=== PATIENT | female | born 1990 | race Caucasian/White ===

== ENCOUNTER 2023-03-25 23:35 | Emergency (ER) | payer OTHER, SELFPAY ==
[2023-03-25 23:48] VITALS: BP 134/84; PULSE 101; RESP 20; TEMP 37.2; O2SAT 97; BMI 23.7
[2023-03-25 23:49] VITALS: BP 134/84
[2023-03-25 23:56] VITALS: PULSE 90; RESP 17
[2023-03-26] VITALS (55 sets, daily range): BP systolic 114–138; BP diastolic 77–90; PULSE 70–96; RESP 10–36; O2SAT 97–99
--- NOTE | 2023-03-26 00:05 | ED_ITS ---
HPI - Chest Pain General Chief Complaint: Chest Pain Stated Complaint: CHEST PAIN Time Seen by Provider: 03/25/23 23:59 Source: patient Mode of arrival: walk-in Limitations: no limitations History of Present Illness HPI narrative: chest pain mostly constant for one week but varies in intensity. sometimes associated with dyspnea. Describes how she can just bend over and feel a little short of breath. Also mild nausea that comes and goes and diarrhea. none now. Had body aches last week at the same time she was experiencing chest pain. Tested for COVID19 x2 and was negative. body aches have resolved but chest d iscomfort continues . Related Data Home Medications Medication Instructions Recorded Confirmed fluocinonide 0.05 % topical cream 1 applic topical PRN itching 03/26/23 fremanezumab-vfrm 225 mg/1.5 mL mg subcut 03/26/23 subcutaneous auto-injector (Ajovy) naproxen 500 mg tablet 500 mg PO PRN pain 03/26/23 norethindrone 1 mg-ethinyl 1 tab PO DAILY 03/26/23 03/26/23 estradiol 35 mcg tablet (Nortrel) omeprazole 20 mg capsule,delayed 40 mg PO BID 03/26/23 03/26/23 release prednisolone acetate 1 % eye 1 drp ophthalmic (eye) Q12H 03/26/23 03/26/23 drops,suspension Allergies Allergy/AdvReac Type Severity Reaction Status Date / Time No Known Drug Allergies Allergy Verified 03/25/23 23:53 Review of Systems ROS Status of ROS 10 or more systems reviewed and unremarkable except as noted in history and below [facility] Medical History (Updated 03/26/23 @ 05:21 by Yves Chase MD) Surgical History (Updated 03/26/23 @ 03:52 by Rosalba Mena) Exam Constitutional Vital Signs, click to edit/add: Last Vital Signs Temp 99 F 03/25/23 23:48 Pulse 86 03/26/23 08:44 Resp 22 03/26/23 08:44 BP 119/78 03/26/23 08:30 Pulse Ox 97 03/26/23 07:00 O2 Del Method Room Air 03/25/23 23:48 Common normals: no apparent distress, average body habitus, oriented x3, no limitations and healthy appearing Eye Common normals: PERRL, EOMs intact bilaterally, conjunctivae normal and no scleral icterus Respiratory Common normals: normal respiratory effort, no retractions and no use of accessory muscles Cardio Common normals: regular rate, regular rhythm, S1 normal heart sound and S2 normal heart sound GI Common normals: Normal to inspection, nondistended, normoactive bowel sounds present, soft to palpation and non-tender Inspection: normal to inspection Extremity Common normals: normal to inspection and full ROM Neuro Common normals: oriented x3, CN's II-XII intact bilaterally, moves all extremities, no focal motor deficits and no sensory deficits noted Psych Appearance: grossly normal Course Vital Signs Vital signs: Vital Signs Temperature 99 F 03/25/23 23:48 Pulse Rate 101 H 03/25/23 23:48 Respiratory Rate 20 03/25/23 23:48 Blood Pressure 134/84 03/25/23 23:48 Pulse Oximetry 97 03/25/23 23:48 Oxygen Delivery Method Room Air 03/25/23 23:48 Temperature 99 F 03/25/23 23:48 Pulse Rate 86 03/26/23 08:44 Respiratory Rate 22 03/26/23 08:44 Blood Pressure 119/78 03/26/23 08:30 Pulse Oximetry 97 03/26/23 07:00 Oxygen Delivery Method Room Air 03/25/23 23:48 MDM - Chest Pain MDM Narrative Medical decision making narrative: otherwise healthy female presents complaining of exertional chest pain and associated dyspnea and nausea on and off for the past week. Workup demonstrated elevated d-dimer. CTA chest neg for PE. Troponin elevated and repeat Troponin doubled. Patient advised of the need for transfer to be evaluated by Cardiology. heparin ordered. Case discussed with Hospitalist and patient accepted for transfer Lab Data Labs: Lab Results 03/26/23 03/26/23 03/26/23 Range/Units 00:00 02:50 06:11 WBC 5.9 (4.0-11.0) 10^3/uL RBC 4.66 (4.20-5.40) 10^6/uL Hgb 13.5 (12.0-16.0) g/dL Hct 41.3 (36.0-48.0) % MCV 88.6 (81.0-99.0) fL MCH 29.0 (26.7-34.0) pg MCHC 32.7 (29.9-35.2) g/dL RDW 12.3 (11.0-15.0) % Plt Count 353 (150-450) 10^3/uL MPV 10.5 (9.5-13.5) fL Neut % (Auto) 44.6 (43.0-75.0) % Lymph % (Auto) 41.9 (20.5-60.0) % [place] % (Auto) 10.1 (1.7-12.0) % Eos % (Auto) 2.6 (0.9-7.0) % Baso % (Auto) 0.5 (0.2-2.0) % Neut # (Auto) 2.6 (1.4-6.5) 10^3/uL Lymph # (Auto) 2.5 (1.2-3.8) 10^3/uL [place] # (Auto) 0.6 (0.3-0.8) 10^3/uL Eos # (Auto) 0.2 (0.0-0.7) 10^3/uL Baso # (Auto) 0.0 (0.0-0.1) 10^3/uL Abs Immat Gran (auto) 0.02 (0.00-0.03) 10^3/uL Imm/Tot Granulo (auto) 0.3 (0.0-0.5) % PT 9.7 (9.0-11.6) sec INR <0.93 APTT 26.3 (22.3-36.2) sec D-Dimer 0.66 H* (<=0.59) mg/L FEU Sodium 136 (136-145) mmol/L Potassium 3.3 L (3.5-5.1) mmol/L Chloride 100 (98-107) mmol/L Carbon Dioxide 28.5 (21.0-32.0) mmol/L Anion Gap 10.8 BUN 6.0 L (7.0-18.0) mg/dL Creatinine 0.73 (0.55-1.02) mg/dL Est GFR ( Amer) >60 (>=60) Est GFR (Non-Af Amer) >60 (>=60) BUN/Creatinine Ratio 8.2 Glucose 103 (74-106) mg/dL Calcium 8.4 L (8.5-10.1) mg/dL Troponin I High Sens 101.7 H* 207.4 H* (4.0-51.3) pg/mL Serum HCG, Qual Negative (NEGATIVE) Discharge Plan Discharge Chief Complaint: Chest Pain Clinical Impression: Elevated troponin, Chest pain Patient Disposition: [facility] Discharge Location: [facility] Mode of Transportation: EMS Discharge Date/Time: 03/26/23 09:09
--- NOTE | 2023-03-26 00:09 | ECG_ITS ---
The [facility] Test Date: 2023-03-25 Pat Name: TO SHELTON Department: Room: - Gender: Female [employer] Handler: : 1990 Requested By: [id number] Order Number: [id number] Reading MD: TAWNYA CASEY Measurements Intervals [place] Rate: 98 P: 71 KS: 104 QRS: 84 QRSD: 86 T: 71 QT: 348 QTc: 403 Interpretive Statements 1100 Sinus rhythm 2210 Short KS interval 9150 abnormal ECG No previous ECG available for comparison Electronically Signed On 03-26-2023 7:06:21 EDT by TAWNYA CASEY
--- NOTE | 2023-03-26 00:09 | XR_ITS ---
The [address] [address] Patient Name: TO SHELTON MRN: [id number] date: 1990 Sex: F Assigned Patient Location: ER Current Patient Location: ER Accession/Order Number: [id number] Exam Date: 03/26/2023 00:20 Report Date: 03/26/2023 01:09 At the request of: ANNE SUMMERS Procedure: XR chest 2V EXAM: XR chest 2V HISTORY: chest pain COMPARISON: Chest radiographs dated 05/02/2022. TECHNIQUE: 2 views of the chest were obtained. FINDINGS: The cardiac silhouette is normal in size. The lungs are clear. There is no significant pneumothorax or pleural effusion. No acute osseous abnormality is seen. XR/XR chest 2V IMPRESSION: 1. No acute cardiopulmonary abnormality. Electronically authenticated by: Marco CEJA Date: 03/26/2023 01:09
[2023-03-26 00:16] LABS: Basophils Percent Auto 0.5 % (0.2-2.0); Eosinophils Absolute Auto 0.2 10^3/uL (0.0-0.7); Eosinophils Percent Auto 2.6 % (0.9-7.0); Hematocrit 41.3 % (36.0-48.0); Hemoglobin 13.5 g/dL (12.0-16.0); Immature Granulocytes Abs Auto 0.02 10^3/uL (0.00-0.03); Immature Granulocytes Pct Auto 0.3 % (0.0-0.5); Lymphocytes Absolute Auto 2.5 10^3/uL (1.2-3.8); Lymphocytes Percent Auto 41.9 % (20.5-60.0); Mean Corpuscular HGB Conc 32.7 g/dL (29.9-35.2); Mean Corpuscular Volume 88.6 fL (81.0-99.0); Mean Platelet Volume 10.5 fL (9.5-13.5); Monocytes Absolute Auto 0.6 10^3/uL (0.3-0.8); Monocytes Percent Auto 10.1 % (1.7-12.0); Neutrophils Absolute Auto 2.6 10^3/uL (1.4-6.5); Neutrophils Percent Auto 44.6 % (43.0-75.0); Platelet Count 353 10^3/uL (150-450); Red Blood Count 4.66 10^6/uL (4.20-5.40); Red Cell Distribution Width 12.3 % (11.0-15.0); White Blood Count 5.9 10^3/uL (4.0-11.0)
[2023-03-26 00:34] LABS: Anion Gap 10.8; BUN Creatinine Ratio 8.2; Calcium 8.4 mg/dL (8.5-10.1); Carbon Dioxide 28.5 mmol/L (21.0-32.0); Chloride 100 mmol/L (98-107); Estimated GFR (African America >60 (>=60); Estimated GFR (Non-African Ame >60 (>=60); Glucose 103 mg/dL (74-106); Potassium 3.3 mmol/L (3.5-5.1); Sodium 136 mmol/L (136-145)
[2023-03-26 00:38] LABS: Troponin I High Sensitivity 101.7 pg/mL (4.0-51.3)
--- NOTE | 2023-03-26 00:43 | PC.NURSE ---
Patient states that she has been having chest pain since last Friday worsening with exertion. states she was sick two weeks ago with body aches and chills, has been tested multiple times for covid and it has been negative. denies any intense coughing or chest congestion while sick. patient states she seen her physician in [place] and mentioned that the patient was still having mild chest pain. ekg obtained and given to physician. iv initiated and labs drawn. states that the pain comes and goes, sometimes its worse, sometimes its better. denies any injurys. vital signs stable at this time. no physical symptoms seen during assessment
[2023-03-26 00:50] LABS: D Dimer 0.66 mg/L FEU (<=0.59)
--- NOTE | 2023-03-26 00:51 | CT_ITS ---
The [address] [address] Patient Name: TO SHELTON MRN: [id number] date: 1990 Sex: F Assigned Patient Location: ER Current Patient Location: Accession/Order Number: [id number] Exam Date: 03/26/2023 01:10 Report Date: 03/26/2023 02:00 At the request of: ANNE SUMMERS Procedure: CT angio chest EXAM: CT angio chest HISTORY: chest pain COMPARISON: None. TECHNIQUE: Axial CT images through the chest were obtained after the intravenous administration of 100 mL Omnipaque 350 contrast. Coronal and sagittal reformats were obtained. Dose reduction techniques were achieved by using automated exposure control and/or adjustment of mA and/or kV according to patient size and/or use of iterative reconstruction technique. FINDINGS: The study is technically adequate with a good contrast bolus to the pulmonary arteries. There are no filling defects or vascular cutoffs to indicate a pulmonary embolus. The pulmonary arteries are normal in size. There is a 0.2 cm nodule in the right upper lobe (series 4, image 40). There is a 0.2 cm nodule in the right middle lobe (series 4, image 60). There is a 0.3 cm pleural-based nodule in the right lower lobe (series 4, image 60). The central airways are patent. No pleural effusion or pneumothorax is seen. Bilateral breast implants are noted. The thoracic aorta is normal in course and caliber without evidence of an aneurysm. The cardiac chambers appear normal in size. There is no pericardial effusion. There is no mediastinal, hilar, or axillary lymphadenopathy by CT size criteria. Images through the upper abdomen reveal no significant abnormalities. No suspicious or aggressive bone lesions are seen. No acute fracture is seen. CT/CT angio chest IMPRESSION: 1. No evidence of pulmonary embolism. 3. There are a few scattered pulmonary nodules measuring up to 0.3 cm. These are likely postinfectious or inflammatory in a patient of this age. Electronically authenticated by: Marco CEJA Date: 03/26/2023 02:00
[2023-03-26 03:24] LABS: Troponin I High Sensitivity 207.4 pg/mL (4.0-51.3)
--- NOTE | 2023-03-26 03:29 | PC.NURSE ---
physician notified of critical troponin level
[2023-03-26 05:28] LABS: HCG Qualitative NEGATIVE (NEGATIVE)
[2023-03-26] MEDS: HEPARIN SODIUM (PORCINE) 5,000 UNIT/ML VIAL 3600 UNIT IV (06:26)
[2023-03-26 06:32] LABS: Prothrombin Time 9.7 sec (9.0-11.6)
[2023-03-26] MEDS: HEPARIN SODIUM,PORCINE/D5W 25,000 UNIT/500 ML IV.SOLN 14 UNIT IV (06:32)
[2023-03-26 06:34] LABS: INR <0.93
[2023-03-26 06:35] LABS: Partial Thromboplastin Time 26.3 sec (22.3-36.2)
== END 2023-03-26 09:09 | disposition short-term general hospital (02) ==
PROVIDERS: Emergency Provider Internal Medicine; PCP Family Medicine
DX: R07.9 Chest pain, unspecified (principal); R77.8 Other specified abnormalities of plasma proteins; Z79.899 Other long term (current) drug therapy
CPT/HCPCS: 36415; 71046; 71275; 80048; 84484; 84703; 85025; 85378; 85610; 85730; 93005; 96374; 99285; Q9967

== ENCOUNTER 2023-07-09 18:13 | Emergency (ER) | payer OTHER, SELFPAY ==
[2023-07-09 18:18] VITALS: BP 134/89; PULSE 96; RESP 16; TEMP 37; O2SAT 100; BMI 24.2
[2023-07-09 18:30] VITALS: O2SAT 99
--- NOTE | 2023-07-09 18:36 | ED.ABDPAIN1 ---
HPI - Abdominal Pain General Chief Complaint: Abdominal Pain Stated Complaint: abd pain Time Seen by Provider: 07/09/23 18:26 Source: patient Mode of arrival: walk-in History of Present Illness HPI narrative: 33 year old female presents to the ED for generalized abd pain. Onset was approx 10 days ago. Most of the pain is to the epigastric area. Denies fever, chill, injury, emesis, diarrhea, urinary sx. She takes omeprazole. Rates her pain 4/10 at this time. Denies chance of . Related Data Home Medications Medication Instructions Recorded Confirmed fluocinonide 0.05 % topical cream 1 applic topical PRN itching 03/26/23 fremanezumab-vfrm 225 mg/1.5 mL mg subcut 03/26/23 subcutaneous auto-injector (Ajovy) naproxen 500 mg tablet 500 mg PO PRN pain 03/26/23 norethindrone 1 mg-ethinyl 1 tab PO DAILY 03/26/23 03/26/23 estradiol 35 mcg tablet (Nortrel) omeprazole 20 mg capsule,delayed 40 mg PO BID 03/26/23 03/26/23 release prednisolone acetate 1 % eye 1 drp ophthalmic (eye) Q12H 03/26/23 03/26/23 drops,suspension Previous Rx's Medication Instructions Recorded sucralfate 1 gram tablet (Carafate) 1 g PO TID #12 tabs 07/09/23 Allergies Allergy/AdvReac Type Severity Reaction Status Date / Time Iodinated Contrast Media Allergy Severe Verified 07/09/23 18:25 Review of Systems ROS Constitutional Denies: fever or chills Ears, nose, mouth, and throat Denies: throat pain or neck pain Cardiovascular Denies: chest pain Respiratory Denies: shortness of breath or cough Gastrointestinal Reports: abdominal pain; Denies: nausea, vomiting or diarrhea Genitourinary Denies: painful urination or urinary frequency Musculoskeletal Denies: back pain PFSH PFSH Medical History (Updated 07/09/23 @ 20:32 by Kristin Christianson) Acid reflux disease ?K21.9 - Gastro-esophageal reflux disease without esophagitis (ICD-10) Headache ?R51.9 - Headache, unspecified (ICD-10) Surgical History (Updated 03/26/23 @ 03:52 by Rosalba Mena) Previous back surgery ?Z98.890 - Other specified postprocedural states (ICD-10) Exam Constitutional Vital Signs, click to edit/add: Last Vital Signs Temp 98.6 F 07/09/23 18:18 Pulse 96 H 07/09/23 18:18 Resp 16 07/09/23 18:18 BP 134/89 07/09/23 18:18 Pulse Ox 99 07/09/23 18:30 O2 Del Method Room Air 07/09/23 18:30 Common normals: no apparent distress and oriented x3 General appearance: cooperative Eye Common normals: conjunctivae normal and no scleral icterus Neck & C-Spine Common normals: supple Chest Chest: symmetrical chest wall rise Respiratory Common normals: normal respiratory effort Effort & inspection: able to speak in complete sentences and symmetric chest movement Cardio Common normals: regular rate and regular rhythm GI Common normals: Normal to inspection, nondistended, normoactive bowel sounds present and soft to palpation Palpation: tender Details: epigastric Neuro Common normals: oriented x3 Sensorium/orientation: awake and alert Speech: speech normal Course Vital Signs Vital signs: Vital Signs Temperature 98.6 F 07/09/23 18:18 Pulse Rate 96 H 07/09/23 18:18 Respiratory Rate 16 07/09/23 18:18 Blood Pressure 134/89 07/09/23 18:18 Pulse Oximetry 100 07/09/23 18:18 Oxygen Delivery Method Room Air 07/09/23 18:18 Temperature 98.6 F 07/09/23 18:18 Pulse Rate 96 H 07/09/23 18:18 Respiratory Rate 16 07/09/23 18:18 Blood Pressure 134/89 07/09/23 18:18 Pulse Oximetry 99 07/09/23 18:30 Oxygen Delivery Method Room Air 07/09/23 18:30 MDM - Abdominal Pain MDM Narrative Medical decision making narrative: Findings were discussed with the patient. Laboratory studies were unremarkable. Imaging was negative for acute findings. Outpatient endoscopy was discussed due to her concerns. Follow up with pcp for a recheck, further evaluation and treatment. She takes omeprazole. A prescription was provided for Carafate. Differential Diagnosis Differential diagnosis: Likely abdominal pain, gastroenteritis, pancreatitis and small bowel obstruction Medical Records Attestation: I reviewed the patient's medical records. Lab Data Attestation: I reviewed the patient's lab results. Labs: Lab Results 07/09/23 07/09/23 Range/Units 18:31 18:54 WBC 9.5 (4.0-11.0) 10^3/uL RBC 4.89 (4.20-5.40) 10^6/uL Hgb 14.1 (12.0-16.0) g/dL Hct 43.4 (36.0-48.0) % MCV 88.8 (81.0-99.0) fL MCH 28.8 (26.7-34.0) pg MCHC 32.5 (29.9-35.2) g/dL RDW 12.3 (11.0-15.0) % Plt Count 300 (150-450) 10^3/uL MPV 10.6 (9.5-13.5) fL Neut % (Auto) 51.9 (43.0-75.0) % Lymph % (Auto) 37.1 (20.5-60.0) % [place] % (Auto) 8.0 (1.7-12.0) % Eos % (Auto) 2.1 (0.9-7.0) % Baso % (Auto) 0.6 (0.2-2.0) % Neut # (Auto) 4.9 (1.4-6.5) 10^3/uL Lymph # (Auto) 3.5 (1.2-3.8) 10^3/uL [place] # (Auto) 0.8 (0.3-0.8) 10^3/uL Eos # (Auto) 0.2 (0.0-0.7) 10^3/uL Baso # (Auto) 0.1 (0.0-0.1) 10^3/uL Abs Immat Gran (auto) 0.03 (0.00-0.03) 10^3/uL Imm/Tot Granulo (auto) 0.3 (0.0-0.5) % Sodium 138 (136-145) mmol/L Potassium 3.4 L (3.5-5.1) mmol/L Chloride 102 (98-107) mmol/L Carbon Dioxide 27.4 (21.0-32.0) mmol/L Anion Gap 12.0 BUN 5.0 L (7.0-18.0) mg/dL Creatinine 0.73 (0.55-1.02) mg/dL Est GFR ( Amer) >60 (>=60) Est GFR (Non-Af Amer) >60 (>=60) BUN/Creatinine Ratio 6.8 Glucose 100 (74-106) mg/dL Calcium 8.9 (8.5-10.1) mg/dL Total Bilirubin 0.3 (0.2-1.0) mg/dL AST 15 (15-37) U/L ALT 11 L (14-59) U/L Alkaline Phosphatase 62 (46-116) U/L Total Protein 7.7 (6.4-8.2) g/dL Albumin 3.5 (3.4-5.0) g/dL Globulin 4.2 g/dL Albumin/Globulin Ratio 0.8 Lipase 92.0 H (16.0-77.0) U/L Urine Color Lt. yellow (YELLOW) Urine Clarity Clear (CLEAR) Urine pH 7.5 (5.0-9.0) Ur Specific [place] 1.015 (1.005-1.025) Urine Protein Negative (NEG/TRACE) mg/dL Urine Glucose (UA) Negative (NEGATIVE) mg/dL Urine Ketones Negative (NEGATIVE) mg/dL Urine Occult Blood Negative (NEGATIVE) Urine Nitrite Negative (NEGATIVE) Urine Bilirubin Negative (NEGATIVE) Urine Urobilinogen 1.0 (0.2-1.0) EU/dL Ur Leukocyte Esterase Small A (NEGATIVE) Urine RBC 0-2 (0-2) #/HPF Urine WBC 0-2 A (NONE SEEN) #/HPF Ur Squamous Epith Cells Few A (NONE/RARE) #/LPF Ur Renal Epithelial Cell Rare A (NONE SEEN) #/LPF Urine Crystals None seen (None Seen) #/HPF Urine Bacteria Trace A (NONE SEEN) #/HPF Urine Casts None seen (NONE SEEN) #/LPF Urine Mucus None seen (NONE SEEN) Ur Culture Indicated? No Urine HCG, Qual Negative (NEGATIVE) Imaging Data CT scan - abdomen: Attestation: I have reviewed the pertinent imaging results. Radiologist's impression: Procedure: CT abdomen pelvis wo con CT SCAN OF THE ABDOMEN AND PELVIS WITHOUT CONTRAST, 07/09/2023 7:45 PM EST COMPARISON: None. CLINICAL HISTORY: pain in the abdomen since 06/28/2023. Patient sometimes feels full after eating. TECHNIQUE: 3 mm axial images performed through the abdomen and pelvis without contrast. 3 mm sagittal and coronal MPR reconstructions performed. Dose reduction techniques were achieved by using automated exposure control and/or adjustment of mA and/or kV according to patient size and/or use of iterative reconstruction technique. ABDOMINAL CT SCAN FINDINGS: Visualized lung bases are clear. Normal heart size with no significant pericardial effusion. Bilateral breast implants present. No renal or ureteral calculi identified. No obstructive uropathy. Remaining nonenhanced abdominal solid organs and slightly contracted gallbladder unremarkable in appearance. No bowel obstruction. Pelvic CT findings: The uterus and urinary bladder have a normal nonenhanced appearance. No bowel obstruction or abnormal bowel wall thickening. Mild to moderate amount of fecal matter in the colon. Portion of visualized appendix (image #104, series 3) has a normal appearance. Levoconvex scoliosis of the thoracolumbar region. No acute osseous abnormality. CT/CT abdomen pelvis wo con IMPRESSION: 1. No acute abnormality of the abdomen and pelvis identified. 2. Bilateral breast implants. 3. No bowel obstruction or abnormal bowel wall thickening. Visualized appendix is normal. Electronically authenticated by: Radha DRAPER Date: 07/09/2023 20:22 Discharge Plan Discharge Chief Complaint: Abdominal Pain Clinical Impression: Abdominal pain Patient Disposition: Home, Self-Care Time of Disposition Decision: 20:29 Condition: Good Mode of Transportation: Private Vehicle Prescriptions / Home Meds: New sucralfate [Carafate] 1 gram tablet 1 g PO TID Qty: 12 0RF No Action Nortrel 1/35 (28) 1-35 mg-mcg tablet 1 tab PO DAILY omeprazole 20 mg capsule,delayed release(DR/EC) 40 mg PO BID prednisolone acetate 1 % drops,suspension 1 drp OPHTHALMIC (EYE) Q12H fluocinonide 0.05 % cream 1 applic TOPICAL PRN (Reason: itching) naproxen 500 mg tablet 500 mg PO PRN (Reason: pain) Ajovy Autoinjector 225 mg/1.5 mL auto-injector subcut Instructions: Diet for Stomach Ulcers and Gastritis (ED), GERD (Gastroesophageal Reflux Disease) (ED), Abdominal Pain (ED) Stand Alone Forms: Portal Instructions Referrals: AYANNA JIMÉNEZ [Primary Care Provider] - As soon as possible Discharge Date/Time: 07/09/23 20:55
[2023-07-09] MEDS: 0.9 % SODIUM CHLORIDE 1,000 ML 999 ML IV (18:51)
[2023-07-09] MEDS: ONDANSETRON PF 4 MG/2 ML VIAL IV (18:51)
[2023-07-09 19:06] LABS: Basophils Absolute Auto 0.1 10^3/uL (0.0-0.1); Basophils Percent Auto 0.6 % (0.2-2.0); Eosinophils Absolute Auto 0.2 10^3/uL (0.0-0.7); Eosinophils Percent Auto 2.1 % (0.9-7.0); Hematocrit 43.4 % (36.0-48.0); Hemoglobin 14.1 g/dL (12.0-16.0); Immature Granulocytes Abs Auto 0.03 10^3/uL (0.00-0.03); Immature Granulocytes Pct Auto 0.3 % (0.0-0.5); Lymphocytes Absolute Auto 3.5 10^3/uL (1.2-3.8); Lymphocytes Percent Auto 37.1 % (20.5-60.0); Mean Corpuscular HGB Conc 32.5 g/dL (29.9-35.2); Mean Corpuscular Hemoglobin 28.8 pg (26.7-34.0); Mean Corpuscular Volume 88.8 fL (81.0-99.0); Mean Platelet Volume 10.6 fL (9.5-13.5); Monocytes Absolute Auto 0.8 10^3/uL (0.3-0.8); Neutrophils Absolute Auto 4.9 10^3/uL (1.4-6.5); Neutrophils Percent Auto 51.9 % (43.0-75.0); Platelet Count 300 10^3/uL (150-450); Red Blood Count 4.89 10^6/uL (4.20-5.40); Red Cell Distribution Width 12.3 % (11.0-15.0); White Blood Count 9.5 10^3/uL (4.0-11.0)
[2023-07-09 19:07] LABS: Bilirubin Urine NEGATIVE (NEGATIVE); Blood Urine NEGATIVE (NEGATIVE); Clarity Urine CLEAR (CLEAR); Color Urine LT. YELLOW (YELLOW); Glucose Urine UA NEGATIVE (NEGATIVE); Ketones Urine NEGATIVE (NEGATIVE); Leukocyte Esterase Urine SMALL (NEGATIVE); Nitrite Urine NEGATIVE (NEGATIVE); Protein Urine NEGATIVE (NEG/TRACE); Specific Gravity Urine 1.015 (1.005-1.025); pH Urine 7.5 (5.0-9.0)
[2023-07-09 19:09] LABS: Urine Microscopic Indicated YES
[2023-07-09 19:10] LABS: HCG Qualitative Urine* NEGATIVE (NEGATIVE)
[2023-07-09 19:12] LABS: Bacteria Urine TRACE #/HPF (NONE SEEN); Cast Seen? NONE SEEN #/LPF (NONE SEEN); Crystals Seen? None Seen #/HPF (None Seen); Mucus Urine NONE SEEN (NONE SEEN); RBC Urine 0-2 #/HPF (0-2); Renal Epithelial Cells Urine RARE #/LPF (NONE SEEN); Squamous Epithelial Cell Urine FEW #/LPF (NONE/RARE); Urine Culture Indicated NO; WBC Urine 0-2 #/HPF (NONE SEEN)
[2023-07-09 19:20] LABS: Alanine Aminotransferase 11 U/L (14-59); Albumin Globulin Ratio 0.8; Albumin Level 3.5 g/dL (3.4-5.0); Alkaline Phosphatase 62 U/L (46-116); Aspartate Amino Transferase 15 U/L (15-37); BUN Creatinine Ratio 6.8; Bilirubin Total 0.3 mg/dL (0.2-1.0); Calcium 8.9 mg/dL (8.5-10.1); Carbon Dioxide 27.4 mmol/L (21.0-32.0); Chloride 102 mmol/L (98-107); Estimated GFR (African America >60 (>=60); Estimated GFR (Non-African Ame >60 (>=60); Globulin 4.2 g/dL; Glucose 100 mg/dL (74-106); Potassium 3.4 mmol/L (3.5-5.1); Sodium 138 mmol/L (136-145); Total Protein 7.7 g/dL (6.4-8.2)
--- NOTE | 2023-07-09 19:31 | CT_ITS ---
The [address] [address] Patient Name: TO SHELTON MRN: [id number] date: 1990 Sex: F Assigned Patient Location: ER Current Patient Location: ER Accession/Order Number: [id number] Exam Date: 07/09/2023 19:45 Report Date: 07/09/2023 20:23 At the request of: JOE PAUL Procedure: CT abdomen pelvis wo con CT SCAN OF THE ABDOMEN AND PELVIS WITHOUT CONTRAST, 07/09/2023 7:45 PM EST COMPARISON: None. CLINICAL HISTORY: pain in the abdomen since 06/28/2023. Patient sometimes feels full after eating. TECHNIQUE: 3 mm axial images performed through the abdomen and pelvis without contrast. 3 mm sagittal and coronal MPR reconstructions performed. Dose reduction techniques were achieved by using automated exposure control and/or adjustment of mA and/or kV according to patient size and/or use of iterative reconstruction technique. ABDOMINAL CT SCAN FINDINGS: Visualized lung bases are clear. Normal heart size with no significant pericardial effusion. Bilateral breast implants present. No renal or ureteral calculi identified. No obstructive uropathy. Remaining nonenhanced abdominal solid organs and slightly contracted gallbladder unremarkable in appearance. No bowel obstruction. Pelvic CT findings: The uterus and urinary bladder have a normal nonenhanced appearance. No bowel obstruction or abnormal bowel wall thickening. Mild to moderate amount of fecal matter in the colon. Portion of visualized appendix (image #104, series 3) has a normal appearance. Levoconvex scoliosis of the thoracolumbar region. No acute osseous abnormality. CT/CT abdomen pelvis wo con IMPRESSION: 1. No acute abnormality of the abdomen and pelvis identified. 2. Bilateral breast implants. 3. No bowel obstruction or abnormal bowel wall thickening. Visualized appendix is normal. Electronically authenticated by: Radha DRAPER Date: 07/09/2023 20:23
[2023-07-09] MEDS: lidocaine HCL 15 ML, MAG HYDROX/ALUMINUM HYD/SIMETH 30 ML, HYOSCYAMINE SULFATE 0.25 MG PO (20:41)
== END 2023-07-09 20:55 | disposition home or self-care (01) ==
PROVIDERS: Nurse Practitioner Family; Emergency Provider Emergency Medicine; PCP Family Medicine
DX: R10.9 Unspecified abdominal pain (principal); K21.9 Gastro-esophageal reflux disease without esophagitis; Z79.899 Other long term (current) drug therapy; Z98.890 Other specified postprocedural states
CPT/HCPCS: 36415; 74176; 80053; 81001; 83690; 84703; 85025; 96374; 99285

== ENCOUNTER 2023-10-28 20:43 | Outpatient (REF) | payer OTHER, SELFPAY ==
--- OUTSIDE RECORDS SUMMARY | 2023-10-28 20:47 | XMS_ITS | CCD ---
Author Organization [facility] Care Team Providers Care Technical Services Manager Name Role Phone MERCEDES MARTIN Unavailable Unavailable KASSANDRA LORD Attending Unavailable MADALYN JOHNSON Attending Unavailable MADALYN JOHNSON Referring Unavailable KASSANDRA LORD Attending Unavailable BHAVIN DODD (PA) Referring Unavail able Lorie Funes Unavailable Ama Schrader Unavailable Haley Wilhelm Unavailable Carla Palafox Unavailable Vikash Carmona Unavailable MD Irma [place] Primary Care Provider [phone] MD Vikash Carmona Attending Provider Jose Casey Unavailable DR IRMA [place] Primary Care Unavailable VARSHA ., LEIF Admitting Unavailable VARSHA Varela, LEIF Attending Unavailable LORI .LIN Consulting Unavailable CAREN HURT Consulting Unavailable SHAZIA ., DR CELIS Admitting Unavailchayo MCCRAY ., DR CELIS Attending Unavailchayo TOLEDO, DR IRMA Domínguez Primary Care Unavailable SHAZIA ., DR CELIS Consulting UnavailEleonora Perry Unavailable Dr. Sylvia Myers Attending Cherie [place], Dr. Irma Montenegro Primary Care Cherie [place], Dr. Irma Montenegro Primary Care Unavailcatrachita [place], Dr. Irma Montenegro Primary Care Unavailcatrachita [place], Dr. Irma Montenegro Primary Care Unavaila anshu Myers, Dr. Moreau Referring Unavaila anshu Myers, Dr. Moreau Attending Unavailcatrachita [place], Dr. Irma Montenegro Primary Care UnavailIrma Broderick MD Primary Care Provider SYLVIA MYERS Referring Unavailable TINO, IRMA YUE Primary Care Unavailable Irma [place] MD Primary Care Provider SYLVIA MYERS Attending Unavailable IRMA [place]O Primary Care Unavailable Irma Yoder Consulting Unavailable [place], Irma A Primary Care Unavailable Alahmad, Alaa Admitting Unavailable Taniahmad, Alaa Attending Unavailable Juan Alberto Larsen Consulting Unavailable Nascimento, Richar Consulting Unavailable Harsh Wells Consulting Unavail able Sylvia Myers Consulting Unavailable Glenny, Jamie Consulting Unavailab Melissa Chapman Consulting Unavailable Zavaleta, Chela Consulting Unavailable Johan, Lauren Jerome Consulting Unavailab Zena Gates Consulting Unavailable Mary Dee Consulting Unavailable Celia Castillo Consulting Unavailable [place], Irma A Primary Care Unavailable Vikash Carmona Admitting Unavailable Vikash Carmona Attending Unavailable Sierra DO, Seth A Primary Care Provider MONET RUIZ Attending Unavailable TOL[place]O, IRMA A Referring Unavailable TOL[place]O, IRMA A Primary Care Unavailable MONET RUIZ Attending Unavailable [place], IRMA A Referring Unavailable SIERRA, SETH A Primary Care Unavailable SIERRA, SETH A Referring Unavailable BHAVIN DODD Attending Unavailable [place]O, IRMA A Referring Unavailable TOL[place]O, IRMA A Primary Care Unavailable [place], IRMA A Referring Unavailable [place]O, IRMA A Primary Care Unavailable SOCORROS, LIN E Admitting Unavailable GRILLIS LIN Kaykay Attending Unavailable [place], IRMA A Primary Care Unavailable SOCORROSLIN Attending Unavailable GRILLIS, LIN E Referring Unavailable [place]OL[place]O, IRMA A Primary Care Unavailable MILO CHAKRABORTY Attending Unavailable [place], IRMA A Primary Care Unavailable SIERRA, SETH A Referring Unavailable SIERRA, SETH A Primary Care Unavailable ELISHA, LIN Mccracken Admitting Unavailable GRILLISLIN Attending Unavailable GRILLIS, LIN E Referring Unavailable [place]O, IRMA A Primary Care Unavailable LIN TELLO E Attending Unavailable RANDYILLIS, LIN E Referring Unavailable SIERRA, SETH A Primary Care Unavailable MILO CHAKRABORTY Attending Unavailable SETH SIERRA Primary Care Unavailable IRMA TOL[place]O Primary Care Unavailable Allergies Allergy Classification Reported Allergen(s) Allergy Type Date of Onset Reaction(s) Facility (3 sources) Acetaminophen / oxyCODONE Drug Allergy nausea and vomiting [facility] Other (3 sources) [facility] COVID-19 Vac-Luda 5-11y Drug allergy anaphylaxis [facility] Other (9 sources) SARS-CoV-2 (COVID-19) vaccine, mRNA spike protein Drug allergy anaphylaxis [facility] Other (2 sources) COVID-19 vaccine, mRNA ([facility]); Translations: [COVID-19 vaccine, mRNA ([facility])] Allergy to substance 02-10-20 Anaphylaxis [facility] (1 source) Acetaminophen / oxyCODONE Drug Allergy [facility] Repository (1 source) ALLERGIES NOT ON FILE; Translations: [ALLERGIES NOT ON FILE] Propensity to adverse reactions (disorder) [place] [facility] (11 sources) Covid-19 Vacc,Mrna(Pfizer) (Pf); Translations: [COVID-19 VACC,MRNA(PFIZER) (PF)] Propensity to adverse reactions to drug 06-06-20 21 Anaphylaxis [facility] (9 sources) Iodinated Contrast Media; Translations: [IODINATED CONTRAST MEDIA] Propensity to adverse reactions to drug 05-29-20 23 Nausea [facility] (8 sources) pregabalin; Translations: [PREGABALIN] Drug Allergy 08-20-19 24 Dizziness [facility] Medications Current Medications Medication Drug Class(es) Dates Sig (Normalized) Sig (Original) amitriptyline hydrochloride 25 mg oral tablet (1 source) Tricyclic Antidepressant Start: 3 take 25 mg by mouth once daily at bedtime Amitriptyline Active 25 MG PO Daily at bedtime September 24, 2022 12:00am betamethasone 0.5 mg/ml / clotrimazole 10 mg/ml topical cream (7 sources) Azole Antifungal, Corticosteroid Start: 0 clotrimazole-bet amethasone (LOTRISONE) cream Indications: 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 Apply to external auditory canals 30 g 1 06/28/2020 Active carboxymethylcellulose sodium 5 mg/ml / glycerin 10 mg/ml / polysorbate 80 5 mg/ml ophthalmic solution (8 sources) Non-Standardized Chemical Allergen carboxymethylce- glycern-poly80 (REFRESH OPTIVE ADVANCED) 0.5-1-0.5 % drops Administer 1 drop to both eyes in the morning. 0 Active take 1 drop(s) into the eye(s) once daily hojdoncpwvrnsmm-rwbmfph-sgew55 0.5-1-0.5 % drops Administer 1 drop into affected eye(s) once daily. 0 Active chlorhexidine gluconate 1.2 mg/ml mouthwash (14 sources) Start: 09-24-2022 Chlorhexidine Gluconate Active 1 EACH PO As Directed September 24, 2022 12:00am take 15 mL by mouth twice daily as needed chlorhexidine (PERIDEX) 0.12 % solution Apply 15 mL to the mouth or throat 2 (two) times a day as needed for wound care. 0 Active Periogard 0.12 % 1 application Mouth/Throat twice a day Active cyclobenzaprine hydrochloride 5 mg oral tablet (20 sources) Muscle Relaxant Start: 11-27-2022 take 1 tablet by mouth once daily as needed for muscle spasms cyclobenzaprine (FLEXERIL) 5 mg tablet Take 1 tablet (5 mg total) by mouth daily as needed for muscle spasms. 30 tablet 3 11/27/2022 Active Start: 09-24-2022 take 10 mg by mouth three times daily Cyclobenzaprine Active 10 MG PO Three times daily September 24, 2022 12:00am take 1 tablet by wanda th every twenty-four hours as needed cyclobenzaprine (Flexeril) 10 mg tablet Take 1 tablet (10 mg) by mouth once daily as needed for muscle spasms. 0 Active cycloSPORINE 0.5 mg/ml ophthalmic suspension (8 sources) Calcineurin Inhibitor Immunosuppressant Start: 08-12-2018 take 1 drop(s) into the eye(s) every twelve hours cycloSPORINE (RESTASIS) 0.05 % ophthalmic emulsion Administer 1 drop to both eyes every 12 (twelve) hours. 0 08/12/2018 Active Start: 08-12-2018 cycloSPORINE ( RESTASIS) 0.05 % ophthalmic emulsion Start: 08-12-2018 take 1 drop(s) into the eye(s) twice daily cycloSPORINE (RESTASIS) 0.05 % ophthalmic emulsion INSTILL 1 DROP INTO EACH EYE BID 0 08/12/2018 Active Cyclosporine (Restasis) 0.05 % dropperette (1 source) Start: 09-24-2022 Cyclosporine (Restasis) 0.05 % dropperette Active 1 DROPS EYE-BOTH As Directed September 24, 2022 12:00am dextromethorphan hydrobromide 1.5 mg/ml / pyrilamine maleate 1.5 mg/ml oral solution (1 source) Uncompetitive S-ngloqu-Q-asparta te Receptor Antagonist, Sigma-1 Agonist Start: 11-12-2021 take 10 mL by mouth every eight hours [place] DM 7.5-7.5 MG/5ML 10 mL Orally every 8 hours for 5 days Nov, Active Diclofenac (1 source) Nonsteroidal Anti-inflammatory Drug Diclofenac Active diphenhydrAMINE hydrochloride 25 mg oral capsule (15 sources) Histamine-1 Receptor Antagonist Start: 02-02-2021 take 1 capsule by mouth every six hours as needed diphenhydrAMINE (BENADRYL) 25 mg capsule Take 1 capsule (25 mg total) by mouth every 6 (six) hours as needed for itching for up to 10 doses. 10 capsule 0 02/02/2021 Active Benadryl Active Norethindrone-Ethin Estradiol (10 sources) Estrogen Start: 09-24-2022 take 1 tablet by mouth once daily Norethindrone-Ethin Estradiol (Nortrel 0.5/35 (28)) 0.5-35 mg-mcg Tablet Active 1 TAB PO Daily September 24, 2022 12:00am Start: 10-01-2017 take 1 tablet by wanda th once in the morning NORTREL 1/35, 28, 1-35 mg-mcg per tablet Take 1 tablet by mouth in the morning. 11 10/01/2017 Active take 1 tablet by wanda th once daily Nortrel 1/35, 28, 1-35 mg-mcg tablet Take 1 tablet by mouth once daily. 0 Active Fish Oils (8 sources) Fish Oil Active fluocinonide 0.5 mg/ml topical solution (7 sources) Corticosteroid fluocinonide (LI DEX) 0.05 % external solution Apply 1 Application topically 2 (two) times a day as needed. 0 Active fluticasone propionate 0.05 mg/actuat metered dose nasal spray (7 sources) Corticosteroid Start: 03-10-2023 fluticasone propionate (FLONASE) 50 mcg/actuation nasal spray 1.5 ml fremanezumab-vfrm 150 mg/ml auto-injector (20 sources) Start: 09-24-2022 Fremanezumab-Vfrm (Ajovy Syringe) 225 mg/1.5 mL Syringe Active 225 MG SUBCUT Q30D September 24, 2022 12:00am Start: 05-25-2021 inject 1.5 mL by sub cutaneous injection every 30 days AJOVY AUTOINJECTOR 225 mg/1.5 mL auto-injector Inject 1.5 mL (225 mg total) under the skin every 30 (thirty) days. 0 05/25/2021 Active Start: 05-25-2021 AJOVY AUTOINJE CTOR 225 mg/1.5 mL auto-injector INJECT UNDER THE SKIN DIRECTED ONCE A MONTH 0 05/25/2021 Active magnesium sulfate 0.0277 meq/ml / potassium sulfate 0.0374 meq/ml / sodium sulfate 0.257 meq/ml oral solution (3 sources) Start: 09-15-2023 take 177 mL by mouth in the morning sodium,potassium,mag sulfates (SUPREP BOWEL PREP KIT) 17.5-3.13-1.6 gram recon soln Take 177 mL by mouth in the morning and 177 mL before bedtime. 177 mL 1 09/15/2023 Active Nortrel 0.5/35 (28) (13 sources) Nortrel 0.5/35 ( 28) Active take 1 tablet by mouth once [place] y Nortrel 0.5/35 (28) 1 tablet Orally Once a day *please review for potential _update for e-prescription and drug interaction check* Not-Taking omeprazole 20 mg delayed release oral tablet (20 sources) Proton Pump Inhibitor Start: 11-21-2022 take 1 tablet by mouth once daily before mealtime omeprazole (PriLOSEC) 20 mg tablet,delayed release (DR/EC) EC tablet Take 1 tablet (20 mg) by mouth once daily in the morning. Take before meals. 0 11/21/2022 Active Start: 10-21-2022 take 1 capsule by mo [facility] once daily Omeprazole 40 MG 1 capsule 30 minutes before morning meal Orally Once a day for 30 days Oct, Active Start: 09-24-2022 take 20 mg by mouth once daily Omeprazole Active 20 MG PO Daily September 24, 2022 12:00am Start: 02-12-2022 take 2 capsules by m outh once daily before breakfast omeprazole (PriLOSEC) 20 mg capsule Take 2 capsules (40 mg total) by mouth every morning before breakfast. 0 02/12/2022 Active Omeprazole 20 MG 2 capsules 30 min prior to the first meal of the day Orally Once a day for 90 days Active take 1 capsule by mo [facility] once daily Omeprazole 20 MG 1 capsule 30 minutes before morning meal Orally Once a day Active ondansetron 4 mg oral tablet (3 sources) Serotonin-3 Receptor Antagonist Start: 09-06-2021 take 1 tablet by mouth every eight hours Zofran ODT 4 MG 1 tablet on the tongue and allow to dissolve Orally every 8 hrs for 5 days Aug, Active Start: 03-10-2021 take 1 tablet by wanda th every eight hours as needed Ondansetron HCl 4 MG 1 tablet Orally every 8 hours as needed for 3 days Apr, Active predniSONE 20 mg oral tablet (2 sources) Start: 06-07-2022 End: 09-05-2023 take 1 tablet by mouth once daily predniSONE (Deltasone) 20 mg tablet Take 1 tablet (20 mg) by mouth once daily. 0 06/07/2022 09/05/2023 Discontinued (Therapy completed) sod sulf-pot chloride-mag sulf 1.479-0.188- 0.225 gram tablet (1 source) Start: 09-30-2023 sod sulf-pot chloride-mag sulf 1.479-0.188- 0.225 gram tablet Indications: Abdominal bloating Please see instructional sheet given by physicians office. 24 tablet 0 09/30/2023 Active sucralfate 1000 mg oral tablet (7 sources) Aluminum Complex take 1 tablet by mouth three times daily sucralfate (CARAFATE) 1 gram tablet Take 1 tablet (1 g total) by mouth 3 (three) times a day. 0 Active valACYclovir 500 mg oral tablet (8 sources) Herpesvirus Nucleoside Analog DNA Polymerase Inhibitor, Herpes Simplex Virus Nucleoside Analog DNA Polymerase Inhibitor, Herpes Zoster Virus Nucleoside Analog DNA Polymerase Inhibitor Start: 01-20-2018 valACYclovir (VALTREX) 500 mg tablet Take 1 tablet (500 mg total) by mouth as needed. 5 01/20/2018 Active Completed/Discontinued Medications Medication Drug Class(es) Dates Sig (Normalized) Sig (Original) biotin 2.5 mg oral capsule (2 sources) End: 08-20-2023 take 2 capsules by mouth in the morning biotin (BIOTIN) 2,500 mcg capsule Take 2 capsules (5,000 mcg total) by mouth in the morning. 0 08/20/2023 Discontinued (Patient Stopped On Own) escitalopram 5 mg oral tablet (2 sources) Serotonin Reuptake Inhibitor Start: 05-26-2023 End: 08-20-2023 take 1 tablet by mouth once daily escitalopram (LEXAPRO) 5 mg tablet TAKE 1 TABLET BY MOUTH EVERY DAY 0 05/26/2023 08/20/2023 Discontinued (Discontinued by another clinician) ibuprofen 800 mg oral tablet (18 sources) Nonsteroidal Anti-inflammatory Drug Start: 11-27-2022 End: 08-20-2023 take 1 tablet by mouth every six hours as needed for pain ibuprofen (MOTRIN) 800 mg tablet Take 1 tablet (800 mg total) by mouth every 6 (six) hours as needed for pain for up to 30 days. 30 tablet 3 11/27/2022 08/20/2023 Discontinued (Discontinued by another clinician) Start: 09-24-2022 take 200 mg by mouth every six hours Ibuprofen Active 200 MG PO Q6H September 24, 2022 12:00am take 1 tablet by wanda th every eight hours as needed ibuprofen 800 mg tablet Take 1 tablet (800 mg) by mouth every 8 hours if needed for moderate pain (4 - 6). 0 Active L. ACIDOPHILUS/BIFID. ANIMALIS (ONE-A-DAY TRUBIOTICS ORAL) (2 sources) End: 08-20-2023 take 1 tablet by mouth in the morning L. ACIDOPHILUS/BIFID. ANIMALIS (ONE-A-DAY TRUBIOTICS ORAL) Take 1 tablet by mouth in the morning. 0 08/20/2023 Discontinued (Patient Stopped On Own) take 1 tablet by wanda th in the morning L. ACIDOPHILUS/BIFID. ANIMALIS (ONE-A-DA Y TRUBIOTICS ORAL) Take 1 tablet by mouth in the morning. 0 Active lifitegrast 50 mg/ml ophthalmic solution (17 sources) Lymphocyte Function-Associated Antigen-1 Antagonist Start: 10-07-2018 End: 08-20-2023 XIIDRA 5 % dropperette End: 08-20-2023 take 1 drop(s) into the eye(s) in the morning lifitegrast (XIIDRA) 5 % dropperette Administer 1 drop to both eyes in the morning and 1 drop before bedtime. 0 08/20/2023 Discontinued (Discontinued by another clinician) Xiidra 5 % INT 1 GTT IN OU BID Ophthalmic for 30 Not-Taking meloxicam 7.5 mg oral tablet (2 sources) Nonsteroidal Anti-inflammatory Drug Start: 05-26-2023 End: 08-20-2023 take 1 tablet by mouth once daily meloxicam (MOBIC) 7.5 mg tablet TAKE 1 TABLET BY MOUTH EVERY DAY 0 05/26/2023 08/20/2023 Discontinued (Discontinued by another clinician) mometasone furoate 0.001 mg/mg topical ointment (3 sources) Corticosteroid Start: 09-29-2019 End: 09-04-2023 mometasone (ELOCON) 0.1 % ointment Indications: Chronic eczematous otitis externa of both ears Apply 1 application topically daily. 45 g 0 09/29/2019 09/04/2023 Discontinued omega-3/dha/epa/ dpa/fish oil (OMEGA-3 2099 ORAL) (2 sources) End: 08-20-2023 omega-3/dha/epa/dp a/fish oil (OMEGA-3 2099 ORAL) Take 1,200 mg by mouth 2 (two) times a day. 0 08/20/2023 Discontinued (Patient Stopped On Own) omega-3/dha/epa/ dpa/fish oil (OMEGA-3 2099 ORAL) Take 1,200 mg by mouth 2 (two) times a day. 0 Active potassium chloride 20 meq extended release oral tablet (1 source) Start: 02-09-2021 End: 09-24-2022 take 20 mEq by mouth once daily Potassium Chloride Discontinued 20 MEQ PO Daily February 08, 2021 11:00pm September 24, 2022 1:48pm triamcinolone acetonide 5 mg/ml topical cream (6 sources) Corticosteroid Start: 03-29-2020 End: 09-04-2023 triamcinolone (KENALOG) 0.5 % cream Apply 1 application topically 3 (three) times a day. 30 g 0 03/29/2020 09/04/2023 Discontinued Start: 03-20-2020 End: 09-04-2023 triamcinolone (KENALOG) 0.02 5 % ointment Indications: Chronic eczematous otitis externa of both ears Apply 1 application topically 2 (two) times a day. 30 g 0 03/20/2020 09/04/2023 Discontinued TruBiotics - (1 source) TruBiotics - Ora lly Not-Taking Problems Active Problems Problem Classification Problem Date Documented Da te Episodic/Chronic Abdominal pain (10 sources) Abdominal pain; Translations: [Abdominal pain, unspecified site] Onset: 4 08-20-2023 Episodic Allergic reactions (1 source) Allergic reaction; Translations: [Allergy, unspecified, initial encounter] 02-09-2021 Episodic Anxiety disorders (18 sources) Generalized anxiety disorder; Translations: [Generalized anxiety disorder] Onset: 3 09-05-2023 Chronic Cardiac dysrhythmias (8 sources) Palpitations; Translations: [Palpitations] Onset: 3 06-05-2023 Episodic Esophageal disorders (12 sources) Laryngopharyngeal reflux; Translations: [Gastro-esophageal reflux disease without esophagitis] Onset: 2 Resolved: 2 Chronic Headache; including migraine (2 sources) Migraine without aura; Translations: [Migraine without aura, not intractable, without status migrainosus] Onset: 3 06-02-2023 Chronic Immunizations and screening for infectious disease (5 sources) Contact with and (suspected) exposure to other viral communicable diseases; Translations: [Encounter for screening for human papillomavirus (HPV)] Onset: 1 Resolved: 2 Episodic Miscellaneous mental health disorders (9 sources) Feeling of lump in throat; Translations: [Other somatoform disorders] Onset: 2 Resolved: 2 Chronic Nausea and vomiting (7 sources) Nausea; Translations: [Nausea alone] Onset: 4 08-20-2023 Episodic Nonmalignant breast conditions (13 sources) Disorder of breast; Translations: [Disorder of breast, unspecified] Episodic Other connective tissue disease (2 sources) Bursitis of hip; Translations: [Trochanteric bursitis, unspecified hip] Episodic Other connective tissue disease (1 source) Trochanteric bursitis, right hip Episodic Other gastrointestinal disorders (4 sources) Diarrhea; Translations: [Diarrhea] Episodic Other gastrointestinal disorders (8 sources) Dysphagia; Translations: [Dysphagia, unspecified] Episodic Other gastrointestinal disorders (3 sources) Abdominal bloating; Translations: [Abdominal distension (gaseous)] 08-20-2023 Episodic Other gastrointestinal disorders (2 sources) Abdominal distension (gaseous); Translations: [Abdominal distension (gaseous)] Onset: 4 Episodic Other nervous system disorders (12 sources) Chronic pain; Translations: [Other chronic pain] Chronic Other nervous system disorders (13 sources) Paresthesia; Translations: [Paresthesia of skin] Episodic Other screening for suspected conditions (not mental disorders or infectious disease) (4 sources) Encounter for screening for malignant neoplasm of cervix; Translations: [ENC SCREENING MALIG NEOPLASM CERV] Onset: 3 Episodic Other upper respiratory infections (3 sources) Acute upper respiratory infection, unspecified Onset: 2 Resolved: 2 Episodic Yazmin-; endo-; and myocarditis; cardiomyopathy (except that caused by tuberculosis or sexually transmitted disease) (4 sources) Myopericarditis; Translations: [Disease of pericardium, unspecified] Onset: 4 09-05-2023 Episodic Residual codes; unclassified (2 sources) Body mass index 20-24 - normal; Translations: [Body mass index (BMI) 23.0-23.9, adult] Onset: 4 09-05-2023 Episodic Residual codes; unclassified (2 sources) Never smoked any substance; Translations: [Other specified health status] Onset: 4 09-05-2023 Episodic Residual codes; unclassified (2 sources) Body mass index (BMI) 23.0-23.9, adult; Translations: [Body mass index (BMI) 23.0-23.9, adult] Onset: 4 Episodic Residual codes; unclassified (2 sources) Other specified health status; Translations: [Other specified health status] Onset: 4 Episodic Spondylosis; intervertebral disc disorders; other back problems (20 sources) Displacement of cervical intervertebral disc; Translations: [Other cervical disc displacement, unspecified cervical region] Onset: 8 Chronic Spondylosis; intervertebral disc disorders; other back problems (20 sources) Sacroiliac disorder; Translations: [Sacrococcygeal disorders, not elsewhere classified] Onset: 8 Resolved: 8 06-02-2023 Episodic Unclassified (1 source) BX / BX() Onset: 8 Unclassified (1 source) gastroesophageal reflux, nausea, epigastric pain Onset: 4 Viral infection (4 sources) Herpes simplex without complication; Translations: [Herpes simplex without mention of complication] Episodic Past or Other Problems Problem Classification Problem Date Documented Da te Episodic/Chronic Intestinal infection (1 source) Viral intestinal infection, unspecified Onset: 09-06-2021 Resolved: 09-06-2021 Episodic Mood disorders (7 sources) Mood disorders Onset: 06-28-2020 06-28-2020 Nonspecific chest pain (9 sources) Chest pain, unspecified; Translations: [Chest pain] Onset: 05-02-2022 Episodic Other aftercare (1 source) Other terminal press operator (current) drug therapy; Translations: [OTH REPAIRER GENERAL CURRENT DRUG THERAPY] Onset: 05-06-2022 Episodic Other aftercare (1 source) computer terminal operator (current) use of hormonal contraceptives; Translations: [REPAIRER GENERAL HORMONAL CONTRACEPTIVES] Onset: 05-06-2022 Episodic Other connective tissue disease (7 sources) Bilateral trochanteric bursitis; Translations: [Trochanteric bursitis, right hip] Onset: 11-19-2022 11-19-2022 Episodic Other ear and sense organ disorders (7 sources) Eczema of external auditory canal; Translations: [Acute eczematoid otitis externa, unspecified ear] Onset: 09-29-2019 09-29-2019 Episodic Other eye disorders (2 sources) Dry eyes; Translations: [Dry eye syndrome of unspecified lacrimal gland] Onset: 06-02-2023 06-02-2023 Episodic Other gastrointestinal disorders (1 source) Dysphagia, unspecified Onset: 04-08-2022 Resolved: 04-08-2022 Episodic Otitis media and related conditions (7 sources) Chronic otitis media; Translations: [Otitis media, unspecified, left ear] Onset: 09-29-2019 09-29-2019 Episodic Unclassified (1 source) BX; Translations: [BX] Onset: 10-14-2017 Unclassified (1 source) Cough R05.9 Onset: 03-03-2022 Resolved: 03-03-2022 Unclassified (1 source) Contact with and (suspected) exposure to covid-19 Z20.822 Results Test Name Value Interpretation Reference Range Facility HCG ( test) Ql (U)o n 10-02-2023 Beta HCG ( test) Ql (U) Negative Normal [facility]G [facility] Comment on above: Performed By: #### 2 106-3 #### [facility] ([id number]) [address] [place] [address], [place] [address] Surgical Pathologyon 024 Surgical Pathology Normal [facility] Comment on above: Result Comment: [facility] [address] [place] [address] Surgical Pathology Consultation Patient Name:ERIKA DOWNEY:1990 (Age: 33)Gender:FTaken:4Reported:10/06/2023hysician(s):Lin Tello D.O. ([phone])Copy To: Rec. #:[id number]: #[id number] Final Pathologic Diagnosis Descending/left colon biopsies: Fragments of mildly edematous colonic mucosa with no significant histopathologic abnormalities. Report Electronically Signed Out lizk/10/06/2023Viv Bernal MD Interpretation performed at [facility], [address] [place] [address], License number: [id number]. Clinical History Abdominal bloating. Gross Description Received in formalin labeled CAT, descending are 3 pale-duenas delicate soft tissue fragments, 0.2-0.5 cm in greatest dimension. The specimens are filtered and submitted in a single cassette. (1,ns,[id number], m8) tgb/10/03/2023EAK Specimen(s) Received Descending/left colon biopsies Fee Codes(s): 1; 01892 COMPREHENSIVE METABOLIC PANE Abran 09-30-2023 Albumin [Mass/Vol] 4.4 g/dL Normal 3.2-5.3 [facility] Comment on above: Performed By: #### [place], [address]-0, THYR, 3051-0 #### [facility] ([id number]) [address], [address] [place] [address] ALP [Catalytic activity/Vol] 54 U/L Normal 39-130 [facility] Comment on above: Performed By: #### [place], 00390-9, THYR, 3051-0 #### [facility] ([id number]) [address], [address] [place] [address] ALT [Catalytic activity/Vol] 16 U/L Normal 0-31 [facility] Comment on above: Performed By: #### C MP, 38517-6, THYR, 3051-0 #### [facility] ([id number]) [address] [address] [place] [address] Anion gap [Moles/Vol] 10 mmol/L Normal 5-15 [facility] Comment on above: Performed By: #### C MP, 44175-6, THYR, 3051-0 #### [facility] ([id number]) [address], [address] [place] [address] AST [Catalytic activity/Vol] 18 U/L Normal 0-41 [facility] Comment on above: Performed By: #### C MP, 99076-0, THYR, 3051-0 #### [facility] ([id number]) [address], [address] [place] [address] Bilirubin [Mass/Vol] 0.5 mg/dL Normal 0.3-1.2 [facility] Comment on above: Performed By: #### C JADE, , THYR, 305-0 #### [facility] ([id number]) [address], [facility] [[email or web address]] [address] [place] [address] Calcium [Mass/Vol] 9.2 mg/dL Normal 8.5-10.5 [facility] Comment on above: Performed By: #### C JADE, , THYR, 305-0 #### [facility] ([id number]) [address], [facility] [[email or web address]] [address] [place] [address] Chloride [Moles/Vol] 104 mmol/L Normal 98-109 [facility] Comment on above: Performed By: #### Donna HANSEN, , THYR, 305-0 #### [facility] ([id number]) [address], [facility] [[email or web address]] [address] [place] [address] CO2 [Moles/Vol] 24 mmol/L Normal 22-32 [facility] Comment on above: Performed By: #### C JADE, , THYR, 305-0 #### [facility] ([id number]) [address], [facility] [[email or web address]] [address] [place] [address] Creatinine [Mass/Vol] 0.69 mg/dL Normal 0.40-1.00 [facility] Comment on above: Result Comment: METH OD TRACEABLE TO IDMS STANDARD Performed By: #### C JADE, , THYR, 305-0 #### [facility] ([id number]) [address] [address] [place] [address] eGFR (CKD-EPI) NON-RACE DEPENDENT >90 Normal >59 [facility] Comment on above: Result Comment: Reported eGFR is based on the CKD-EPI 2020 equation that does not use a race coefficient. Performed By: #### C JADE, 65201-0, THYR, 305-0 #### [facility] ([id number]) [address], [address] [place] [address] Glucose [Mass/Vol] 82 mg/dL Normal 65-99 [facility] Comment on above: Performed By: #### C JADE, 64248-1, THYR, 305-0 #### [facility] ([id number]) [address], [address] [place] [address] Potassium [Moles/Vol] 3.8 mmol/L Normal 3.5-5.0 [facility] Comment on above: Performed By: #### C JADE, 30729-0, THYR, 305-0 #### [facility] ([id number]) [address], [address] [place] [address] Protein [Mass/Vol] 7.3 g/dL Normal 6.0-8.0 [facility] Comment on above: Performed By: #### C JADE, 42217-5, THYR, 305-0 #### [facility] ([id number]) [address], [address] [place] [address] Sodium [Moles/Vol] 138 mmol/L Normal 134-146 [facility] Comment on above: Performed By: #### Donna HANSEN, 12241-9, THYR, 305-0 #### [facility] ([id number]) [address], [address] [place] [address] Urea nitrogen [Mass/Vol] 5 mg/dL Normal 5-23 [facility] Comment on above: Performed By: #### C JADE, 60043-3, THYR, 305-0 #### [facility] ([id number]) [address], [address] [place] [address] FREE T3on 09-30-2023 Free T3 [Mass/Vol] 3.52 pg/mL Normal 2.50-3.90 [facility] Comment on above: Performed By: #### C , 59727-0, THYR, 3051-0 #### [facility] ([id number]) [address], [address] [place] [address] MAGNESIUMon 09-30-2023 Magnesium [Mass/Vol] 2.4 mg/dL Normal 1.8-2.6 [facility] Comment on above: Performed By: #### C JADE, 70532-1, THYR, 305-0 #### [facility] ([id number]) [address], [address] [place] [address] THYROID PROFILEon 09-30-2023 Free T4 [Mass/Vol] 0.78 ng/dL Normal 0.61-1.60 [facility] Comment on above: Performed By: #### C JADE, 84181-0, THYR, 305-0 #### [facility] ([id number]) [address], [address] [place] [address] TSH 2.07 uIU/mL Normal 0.49-4.67 [facility] Comment on above: Performed By: #### C JADE, 95151-4, THYR, 305-0 #### [facility] ([id number]) [address], [address] [place] [address] XR HIP 2 OR 3 VW LEFTon 09-12 XR HIP 2 OR 3 VW LEFT EXAMINATION: XR HIP 2 OR 3 VW LEFT HISTORY: Left left hip pain COMPARISONS: None available TECHNIQUE: Frontal view of the pelvis and frontal and lateral views of the hip. FINDINGS: No acute proximal femur fracture. No hip dislocation. Joint space of the hip is maintained. Visualized bones of the pelvis are within normal limits. Soft tissues are within normal limits. IMPRESSION: No acute osseous abnormality. ELECTRONICALLY SIGNED BY: Daron Carbajal, DO Normal Not Available H PYLORI SCREENon 09-11-2023 H. pylori Org specific cx Ql (Mehnaz fld) Negative Normal NEG [facility] Comment on above: Performed By: #### 4 4015-6 #### [facility] ([id number]) [address] [place] [address], [address] [place] [address] HCG ( test) josue beard Ql (S)on 09-11-2023 SERUM Negative Normal NEG [facility] Comment on above: Performed By: #### 8 0385-8 #### [facility] ([id number]) [address] [facility], [place] [address] Surgical Pathologyon 024 Surgical Pathology Normal [facility] Comment on above: Result Comment: [facility] [address] [place] [address] Surgical Pathology Consultation Patient Name:ERIKA DOWNEY:1990 (Age: 33)Gender:FTaken:4Reported:09/16/2023hysician(s):Lin Tello D.O. ([phone])Copy To: Rec. #:[id number]: #[id number] Final Pathologic Diagnosis 1. Antrum biopsy: Mild chronic gastritis. Negative for helicobacter organisms on routine H&E examination. Negative for atypia or malignancy. 2. Distal esophageal biopsy: Mild chronic gastroesophagitis with changes consisteht with reflux. Negative for davis's esphagus, dysplasia, or malignancy. Report Electronically Signed Out st09/16/2023Graciela Cruz MD Interpretation performed at [facility], [address] [place], [address], License number: [id number]. Clinical History Gastroesophageal reflux, nausea, epigastric pain. Gross Description 1. Received in formalin labeled CAT, #1: Antrum BX are 2 duenas bits of soft tissue, ranging from 0.2-0.3 cm in greatest dimension. Filtered and submitted in a single cassette. (1, ns, [id number], m7) MG 2. Received in formalin labeled CAT, #2: Distal esophagus BX are 4 duenas bits of soft tissue, ranging from 0.1-0.3 cm in greatest dimension. Filtered and submitted in a single cassette. (1, ns, [id number], m7) MG mjg/4RG Specimen(s) Received 1: Antrum biopsy 2: Distal esophageal biopsy Fee Codes(s): 1; 08429 2; 73184 ECG 12 Leadon 09-05-2023 Normal sinus rhythm [facility] Work Phone: Holter monitor studyOrdered By: Sylvia Myers on 06-05-2023 [facility] Work Phone: Office Visit (Cardiology)on 04-11-2023 Follow-up visit Diagnoses/Problems Assessed Atypical chest pain (786.59) (R07.89) Anxiety (300.00) (F41.9) Normal coronary arteries Body mass index (BMI) of 24.0 to 24.9 in adult (V85.1) (Z68.24) Never smoker Myopericarditis (423.9) (I31.9) Patient Instructions Please bring all medicines, vitamins, and herbal supplements with you when you come to the office. Prescriptions will not be filled unless you are compliant with your follow up appointments or have a follow up appointment scheduled as per instruction of your physician. Refills should be requested at the time of your visit. 4 MONTH F/U VISIT WITH EKG Chief Complaint ERIKA DOWNEY is being seen for cath site check. History of Present Illness Patient is here for follow-up from recent hospitalization where she presented with chest pain and elevated cardiac enzyme her presentation suspected to be likely due to myopericarditis. Her cardiac catheterization showed no coronary artery disease. Her echocardiogram was normal. Following her heart cath she called numerous times in regard to her right arm complaining of some minor pain and swelling and bruising. She was advised to elevate the arm and to take some nonsteroidal. Today in the office she continues to have variety of complaint regarding the site of the cath. She describe minor puffiness a little of tingling sensation and minor pain. The patient admits she has been very nervous and anxious and had not been using her arm. Her examination is perfectly normal and she has excellent pulse she had normal neuro or muscular exam. Clearly the patient seem to avoid to move her arm. There is no joint swelling and no signs of any vascular injury. The patient continues to complain of intermittent upper arm tingling sensation. She admits to very high level of anxiety. Assessment 1. Recent presentation with chest pain and elevated cardiac enzymes felt to be likely a myopericarditis seem to have improved 2. Status post left heart cath with normal coronary artery 3. Patient complains of some minor pain, tingling sensation and swelling of the right hand examination is fairly normal except minor bruising. She had normal range of movement and normal vascular examination 4. Anxiety Plan 1. I reassured the patient 2. I reviewed with her the results of her diagnostic testing. 3. I advised her to use ibuprofen or nonsteroidal for a few days 4. I encouraged her to start doing some exercises with her right hand to maintain her range of movement to avoid frozen joint. I reassured her that her examination is normal except minor superficial bruises 5. Follow-up in 3 to 4 months or earlier if the need arise Active Problems Problems Common migraine without aura (346.10) (G43.009) Dry eye (375.15) (H04.129) Never smoker Occipital neuralgia of right side (723.8) (M54.81) Surgical History Problems History of Back surgery History of Breast augmentation History of Cardiac catheterization Past Medical History Problems History of Occipital neuralgia (723.8) (M54.81) Current Meds Medication NameInstruction Ajovy 225 MG/1.5ML Subcutaneous Solution Auto-injectorINJECT CONTENTS OF 1 PEN UNDER THE SKIN ONCE EVERY 30 DAYS Chlorhexidine Gluconate 0.12 % Mouth/Throat Solution Cyclobenzaprine HCl - 10 MG Oral TabletTAKE 1/2 TO 1 TABLET AT BEDTIME NEEDED. Ibuprofen 800 MG Oral Tablet Nortrel (28) TABS Omeprazole 20 MG Oral Capsule Delayed ReleaseTAKE 2 CAPSULES DAILY. predniSONE 20 MG Oral TabletTAKE 2 TABLETS BY MOUTH EVERY DAY FOR 4 DAYS THEN TAKE 1 TABLET BY MOUTH EVERY DAY FOR 4 DAYS Refresh Optive George-3 0.5-1-0.5 % Ophthalmic Solution Restasis 0.05 % Ophthalmic EmulsionINSTILL 1 DROP IN BOTH EYES TWICE DAILY DIRECTED Patient did not bring medication list or bottles. Updated verbally with patient Allergies Medication Reading Trails COVID-19 Vac-Luda 30 MCG/0.3ML Intramuscular Suspension Adverse Reaction; Recorded By: Jory Fernandez; 04/11/2023 11:39:44 AM Social History Problems Consumes alcohol occasionally (V49.89) (Z78.9) Never smoker No illicit drug use Occasional caffeine consumption Review of Systems Constitutional: not feeling tired. Cardiovascular: no intermittent leg claudication and as noted in HPI. Respiratory: no cough and no shortness of breath. Gastrointestinal: no change in bowel habits and no blood in stools. Integumentary: no skin rashes. Neurological: no seizures and no frequent falls. All other systems have been reviewed and are negative for complaint. Physical Exam Constitutional: alert and in no acute distress. Neck: neck is supple, symmetric, trachea midline, no masses and no thyromegaly . Pulmonary: no increased work of breathing or signs of respiratory distress and lungs clear to auscultation. Cardiovascular: carotid pulses 2+ bilaterally with no bruit , JVP was normal, no thrills , regular rhythm, normal S1 and S2, no murmurs , pedal pulses 2+ bilaterally and no edema . A (more content not included)... Normal [employer] Blood Urea Nitrogenon 2022 Urea nitrogen [Mass/Vol] 5 mg/dL Low 7-25 [facility] Comment on above: Performed By: #### L MIRYAM KAHN, PP, CBC, BUN #### [facility] [address] [place] [address] Coagulation Profileon 2022 aPTT Coag (Bld) [Time] 26.2 s Normal 25.1-36.5 [facility] Comment on above: Result Comment: PERF ORMED BY: [place] [address] PATHOLOGIST PIPELAYING FITTER ZAKIYA NEGRETE M.D. Performed By: #### L MIRYAM KAHN, PP, CBC, BUN #### [facility] [address] [place] [address] INR Coag (PPP) [Relative time] 1.0 {INR} Normal [facility] Comment on above: Result Comment: INR Therapeutic Range A) Pre- and Peroperative OAT started two weeks before surgery. NOT HIP SURGERY: 1.5 - 2.5 HIP SURGERY: 2 - 3 B) Primary and secondary prevention of venous THROMBOSIS: 2 - 3 C) Active venous thrombosis, pulmonary embolism and prevention of recurrent venous thrombosis: 2 - 3 D) Prevention of arterial thromboembolism including patients with mechanical heart valves: 3 - 4.5 Performed By: #### L YTES, CREAT, PP, CBC, BUN #### [address] PT Coag (PPP) [Time] 11.6 s Normal 9.0-12.9 [facility] Comment on above: Performed By: #### L YTES, CREAT, PP, CBC, BUN #### [address] Complete Blood Count Auto Di ffon 03-27-2023 Basophils (Bld) [#/Vol] 0.0 10*3/uL Normal 0.0-0.2 [facility] Comment on above: Result Comment: PERF ORMED BY: [place] [address] PATHOLOGIST PIPELAYING FITTER ZAKIYA NEGRETE M.D. Performed By: #### L YTES, CREAT, PP, CBC, BUN #### [address] Basophils/100 WBC (Bld) 0.5 % Normal . [facility] Comment on above: Performed By: #### L YTES, CREAT, PP, CBC, BUN #### [address] Eosinophils (Bld) [#/Vol] 0.2 10*3/uL Normal 0.0-0.45 [facility] Comment on above: Performed By: #### L YTES, CREAT, PP, CBC, BUN #### [address] Eosinophils/100 WBC (Bld) 2.8 % Normal . [facility] Comment on above: Performed By: #### L YTES, CREAT, PP, CBC, BUN #### [address] Erythrocyte distribution width (RBC) [Ratio] 12.9 % Normal 11.9-15.3 [facility] Comment on above: Performed By: #### L YTES, CREAT, PP, CBC, BUN #### [address] Hematocrit (Bld) [Volume fraction] 37.0 % Normal 34.0-46.4 [facility] Comment on above: Performed By: #### L YTES, CREAT, PP, CBC, BUN #### [address] Hemoglobin (Bld) [Mass/Vol] 12.5 g/dL Normal 11.8-15.4 [facility] Comment on above: Performed By: #### L YTES, CREAT, PP, CBC, BUN #### [address] Lymphocytes (Bld) [#/Vol] 3.8 10*3/uL Normal 1.00-4.8 [facility] Comment on above: Performed By: #### L YTES, CREAT, PP, CBC, BUN #### [address] Lymphocytes/100 WBC (Bld) 47.2 % Normal . [facility] Comment on above: Performed By: #### L YTES, CREAT, PP, CBC, BUN #### [address] MCH (RBC) [Entitic mass] 29.4 pg Normal 24.7-34.3 [facility] Comment on above: Performed By: #### L YTES, CREAT, PP, CBC, BUN #### [address] MCV (RBC) [Entitic vol] 86.7 fL Normal 80-100 [facility] Comment on above: Performed By: #### L YTES, CREAT, PP, CBC, BUN #### [address] Mean Corpuscular HGB Conc 33.9 g/dL Normal 32.0-35.0 [facility] Comment on above: Performed By: #### L YTES, CREAT, PP, CBC, BUN #### [address] Monocytes (Bld) [#/Vol] 0.7 10*3/uL Normal 0.0-0.8 [facility] Comment on above: Performed By: #### L YTES, CREAT, PP, CBC, BUN #### [address] Monocytes/100 WBC (Bld) 9.0 % Normal . [facility] Comment on above: Performed By: #### L YTES, CREAT, PP, CBC, BUN #### [address] Neutrophils (Bld) [#/Vol] 3.3 10*3/uL Normal 1.8-7.7 [facility] Comment on above: Performed By: #### L YTES, CREAT, PP, CBC, BUN #### [address] Neutrophils/100 WBC (Bld) 40.5 % Normal . [facility] Comment on above: Performed By: #### L YTES, CREAT, PP, CBC, BUN #### [address] NRBC% 0.1 /100{WBC} Normal 0-0.5 [facility] Comment on above: Performed By: #### L YTES, CREAT, PP, CBC, BUN #### [place] [address] [place] Platelet mean volume (Bld) [Entitic vol] 8.8 fL Normal 6.3-10.7 [facility] Comment on above: Performed By: #### L YTES, CREAT, PP, CBC, BUN #### [place] [address] [place] Platelets (Bld) [#/Vol] 302 10*3/uL Normal 150-450 [facility] Comment on above: Performed By: #### L YTES, CREAT, PP, CBC, BUN #### [facility] [address] [place] [address] RBC (Bld) [#/Vol] 4.27 10*6/uL Normal 3.60-5.00 [facility] Comment on above: Performed By: #### L YTES, CREAT, PP, CBC, BUN #### [address] WBC (Bld) [#/Vol] 8.1 10*3/uL Normal 3.8-11.6 [facility] Comment on above: Performed By: #### L YTES, CREAT, PP, CBC, BUN #### [address] Creatine Kinaseon 03-27-2023 CK [Catalytic activity/Vol] 64 U/L Normal 30-223 [facility] Comment on above: Performed By: #### L YTES, CREAT, PP, CBC, BUN #### [address] CK [Catalytic activity/Vol] 84 U/L Normal 30- [facility] Comment on above: Performed By: #### L YTES, CREAT, PP, CBC, BUN #### [address] Creatinineon 03-27-2023 Creatinine [Mass/Vol] 0.58 mg/dL Low 0.60-1.20 [facility] Comment on above: Performed By: #### L YTES, CREAT, PP, CBC, BUN #### [address] Creatinine Clr Calc Pharmacy 113.06 Normal [facility] Comment on above: Result Comment: PERF ORMED BY: [place] [address] PATHOLOGIST PIPELAYING FITTER ZAKIYA NEGRETE M.D. Performed By: #### L YTES, CREAT, PP, CBC, BUN #### [address] [place] [address] [place] GFR/1.73 sq M.predicted MDRD (S/P/Bld) [Vol rate/Area] mL/min/{1.73_m2} Normal [facility] Comment on above: Performed By: #### L YTES, CREAT, PP, CBC, BUN #### [facility] [address] [place] [address] [facility] ECG 12 lead ECGon 03-27-2023 ECG 12 lead ECG [facility] [place] [address] [place] [address] Electrocardiograph Report Signed Patient: Erika Downey MR#: [id number] 4 : 1990 Acct:[id number] Age/Sex: 32 / F ADM Date: 03/26/23 Loc: Room: [address] [place] [address] Type: DIS INOo Attending Dr: Jaqueline Hardy MD Ordering Provider: Sylvia Myers MD Date of Service: 03/27/23 ECG/ECG 12 lead ECG: chest pain Copies to: Test Reason : Blood Pressure : / mmHG Vent. Rate : 072 BPM Atrial Rate : 072 BPM P-R Int : 126 ms QRS Dur : 086 ms QT Int : 400 ms P-R-T Axes : 068 079 067 degrees QTc Int : 438 ms Normal sinus rhythm Normal ECG When compared with ECG of 26-MAR-2023 12:33, (Unconfirmed) No significant change was found Confirmed by JESENIA GOFF MD ([id number]) on 03/27/2023 9:50:09 PM Referred By: Electronically Signed By:JESENIA GOFF MD Transcribed By: MUS Signed By Jesenia Goff MD [id number] Normal [facility] Electrolyteson 03-27-2023 Anion gap [Moles/Vol] 11.8 mmol/L Normal 6.0-15.0 [facility] Comment on above: Performed By: #### L YTES, CREAT, PP, CBC, BUN #### [facility] [address] [place] [id number] [place] Chloride [Moles/Vol] 106 mmol/L Normal 98-107 [facility] Comment on above: Performed By: #### L YTES, CREAT, PP, CBC, BUN #### [address] CO2 [Moles/Vol] 25.1 mmol/L Normal 21.0-31.0 [facility] Comment on above: Performed By: #### L YTES, CREAT, PP, CBC, BUN #### [address] Potassium [Moles/Vol] 3.9 mmol/L Normal 3.5-5.1 [facility] Comment on above: Performed By: #### L YTES, CREAT, PP, CBC, BUN #### [address] Sodium [Moles/Vol] 139 mmol/L Normal 136-145 [facility] Comment on above: Performed By: #### L YTES, CREAT, PP, CBC, BUN #### [address] HCG,Qualitative Serumon 03-11 HCG,Qualitative Serum Negative Normal [facility] Comment on above: Result Comment: PERF ORMED BY: [place] [address] PATHOLOGIST PIPELAYING FITTER ZAKIYA NEGRETE M.D. Performed By: #### L YTES, CREAT, PP, CBC, BUN #### [address] Troponin I High Sensitivityo n 03-27-2023 Troponin I High Sensitivity 154.8 pg/mL Off scale high 0.0-15.0 [facility] Comment on above: Result Comment: Crit ical Result : Called to and read back by: MAYITO LOPEZ at: 03/27/2023 12:11:10 by:LFM PERFORMED BY: [place] [address] PATHOLOGIST PIPELAYING FITTER ZAKIYA NEGRETE M.D. Performed By: #### L YTES, CREAT, PP, CBC, BUN #### [address] Troponin I High Sensitivity 108.5 pg/mL Off scale high 0.0-15.0 [facility] Comment on above: Result Comment: Crit ical Result : Called to and read back by: DEWEY ATKINSON at: 03/27/2023 00:32:27 by:[id number] PERFORMED BY: [place] [address] PATHOLOGIST PIPELAYING FITTER ZAKIYA NEGRETE M.D. Performed By: #### L YTES, CREAT, PP, CBC, BUN #### [address] Creatine Kinaseon 03-26-2023 CK [Catalytic activity/Vol] 79 U/L Normal 30-223 [facility] Comment on above: Performed By: #### L YTES, CREAT, PP, CBC, BUN #### [address] CK [Catalytic activity/Vol] 69 U/L Normal 30-223 [facility] Comment on above: Performed By: #### H S TROP, CK #### [address] CK [Catalytic activity/Vol] 62 U/L Normal 30-223 [facility] Comment on above: Performed By: #### L YTES, CREAT, PP, CBC, BUN #### [address] ECG 12 lead ECGon 03-26-2023 ECG 12 lead ECG [facility] [place] [address] Electrocardiograph Report Signed Patient: Erika Downey MR#: [id number] 4 : 1990 Acct:[id number] Age/Sex: 32 / F ADM Date: 03/26/23 Loc: Room: [address] [place] [address] Type: DIS INOo Attending Dr: Jaqueline Hardy MD Ordering Provider: Jaqueline Hardy MD Date of Service: 03/26/23 ECG/ECG 12 lead ECG: chest pain Copies to: Test Reason : Blood Pressure : / mmHG Vent. Rate : 073 BPM Atrial Rate : 073 BPM P-R Int : 110 ms QRS Dur : 088 ms QT Int : 404 ms P-R-T Axes : 069 084 071 degrees QTc Int : 445 ms Sinus rhythm with short VT Otherwise normal ECG No previous ECGs available Confirmed by JESENIA GOFF MD ([id number]) on 03/27/2023 9:49:56 PM Referred By: HOSP Electronically Signed By:JESENIA GOFF MD Transcribed By: MUS Signed By Jesenia Goff MD [address] [facility] echo transthoracicon [facility] echo transthoracic [facility] [place] [place] [address] Echocardiogram Signed Patient: Erika Downey MR#: [id number] 4 : 1990 Acct:[id number] Age/Sex: 32 / F ADM Date: 03/26/23 Loc: Room: [address] [place] [address] Type: ADM IN Attending Dr: Jaqueline Hardy MD Ordering Provider: Jaqueline Hardy MD Date of Service: 03/26/23 [facility] echo transthoracic: chest pain Copies to: MD Sylvia Hernandez MD BSA: 1.6 m2 BP: 112/46 mmHg HR: 87 Reason For Study: chest pain History: GERD. Interpretation Summary Ejection Fraction = 55-60%. The left ventricular size, thickness and function are normal The left ventricular wall motion is normal. Normal transthoracic echocardiogram. There is no comparison study available. Procedure/Quality: A two-dimensional transthoracic echocardiogram with color flow and Doppler was performed. Left Ventricle: The left ventricular size, thickness and function are normal. Ejection Fraction = 55-60%. The left ventricular wall motion is normal. Left Atrium: The left atrium appears normal in size. Right Atrium: The right atrium appears normal in size. Right Ventricle: The right ventricular size, thickness and function are normal. Aortic Valve: The aortic valve is normal in structure and function. No aortic regurgitation is present. Mitral Valve: The mitral valve is normal in structure and function. There is no mitral regurgitation noted. Tricuspid Valve: The tricuspid valve is normal in structure and function. No tricuspid regurgitation. Pulmonic Valve: The pulmonic valve is normal in structure and function. Arteries: The aortic root is normal size. Pericardium/Pleura: No pericardial effusion seen. There is no pleural effusion. IVC/Hepatic Viens: The inferior vena cava is normal in size, with a normal collapsibility index. Measurements with Normals IVSd: 0.81 cm (0.7-1.1 cm)LVIDd: 4.3 cm (3.7-5.4 cm) LVPWd: 0.71 cm (0.7-1.1 cm)LVIDs: 2.8 cm (2.3-3.6 cm) LA dimension: 2.7 cm (2.3-4.0 cm)Ao root diam: 2.6 cm(2.0-3.6 cm) asc Aorta Diam: 2.4 cm(2.1-3.4cm) Doppler with Normals RVSP(TR): 15.2 mmHg (18-35mmHg) MV E max stephen: 74.1 cm/sec(0.8-1.3m/s) MV A max stephen: 61.3 cm/sec(0.0-0.0m/s) MV E/A: 1.2 (<1.5) MMode/2D Measurements Calculations RVDd: 2.2 cm FS: 35.1 % Ao root area: LAV(MOD-sp4): TAPSE: 2.3 cm EDV(Teich): 5.2 cm2 14.7 ml RV S Stephen: 15.0 cm/sec 81.2 ml ESV(Teich): 28.6 ml EF(Teich): 64.7 % __ LA A4 area: 8.6 cm2 LA length (vol): 3.9 cm Doppler Measurements Calculations E/E' lat: 5.4 TV max P.0 mmHg TR max stephen: 159.6 cm/sec E/E' med: 5.6 TR max P.2 mmHg RAP systole: 5.0 mmHg ___ Transcribed By: SCV Performed At: 03/26/23 1304 Signed By: Sylvia Myers MD 03/26/23 1511 Normal [facility] Lipid Panelon 03-26-2023 Cholesterol [Mass/Vol] 193 mg/dL Normal 140-200 [facility] Comment on above: Result Comment: Chol less than 200 mg/dl low risk Chol 201-239 mg/dl borderline risk Chol 240 mg/dl and greater high risk Performed By: #### L YTES, CREAT, PP, CBC, BUN #### [facility] [address] Cholesterol in HDL [Mass/Vol] 40 mg/dL Normal 23-92 [facility] Comment on above: Result Comment: HDL CHOL ATP-III CLASSIFICATION Cardiovascular Risk HDL > or equal to 60 mg/dL LOW HDL < 40 mg/dL HIGH Performed By: #### L YTES, CREAT, PP, CBC, BUN #### [facility] [address] Cholesterol.total/ Cholesterol in HDL [Mass ratio] 4.8 {ratio} Normal <5.0 [facility] Comment on above: Result Comment: PERF ORMED BY: [place] [address] PATHOLOGIST PIPELAYING FITTER ZAKIYA NEGRETE M.D. Performed By: #### L YTES, CREAT, PP, CBC, BUN #### [facility] [address] LDL Cholesterol,Calcul ated 116 mg/dL High 0-100 [facility] Comment on above: Result Comment: LDL ATP III CLASSIFICATION LDL less than 100 mg/dL Optimal LDL 100-129 mg/dL Near or above optimal LDL 130-159 mg/dL Borderline high LDL 160-189 mg/dL High LDL greater than 189 mg/dL Very high Performed By: #### L YTES, CREAT, PP, CBC, BUN #### [address] Triglyceride w/Reflex 185 mg/dL High 0-149 [facility] Comment on above: Result Comment: TRIG ATP III CLASSIFICATION TRIG less than 150 mg/dL Normal TRIG 150-199 mg/dL Borderline high TRIG 200-500 mg/dL High TRIG greater than 500 mg/dL Very high Standard traceable to the Center for Disease Conrtrol and Prevention (CDC) test method. Performed By: #### L YTES, CREAT, PP, CBC, BUN #### [address] VLDL CHOLESTEROL 37 mg/dL Normal [facility] Comment on above: Performed By: #### L YTES, CREAT, PP, CBC, BUN #### [place] [address] [place] Troponin I High Sensitivityo n 03-26-2023 Troponin I High Sensitivity 131.7 pg/mL Off scale high 0.0-15.0 [facility] Comment on above: Result Comment: Crit ical Result : Called to and read back by: MAYITO LOPEZ at: 03/26/2023 18:35:20 by:LFM PERFORMED BY: [place] [address] PATHOLOGIST PIPELAYING FITTER ZAKIYA NEGRETE M.D. Performed By: #### L YTES, CREAT, PP, CBC, BUN #### [address] Troponin I High Sensitivity 122.6 pg/mL Off scale high 0.0-15.0 [facility] Comment on above: Result Comment: Crit ical Result : Called to and read back by: MAYITO LOPEZ at: 03/26/2023 15:22:27 by:LFM PERFORMED BY: [place] [address] PATHOLOGIST PIPELAYING FITTER AZKIYA NEGRETE M.D. Performed By: #### H S TROP, CK #### [facility] [address] Troponin I High Sensitivity 113.8 pg/mL Off scale high 0.0-15.0 [facility] Comment on above: Result Comment: Crit ical Result : Called to and read back by: ELEONORA KRISHNAN at: 03/26/2023 13:34:41 by:LFM PERFORMED BY: [place] [address] PATHOLOGIST PIPELAYING FITTER ZAKIYA NEGRETE M.D. Performed By: #### L YTES, CREAT, PP, CBC, BUN #### [facility] [address] [place] [address] COVID + FLU Quick Testingon 03-23-2023 SARS-CoV-2 (COVID-19) RNA CARLTOA+probe Ql (Unsp spec) Negative [facility] [employer] Other COVID + FLU Quick Testing Negative [employer] [facility] [employer] Other PAP ACOG PANEL 2: 30 to 65on 11-20-2022 . . Normal [facility] Comment on above: Result Comment: Perf ormed at: WB Performed By: #### [id number] #### [facility] [address] [place] [address] Dr. Sathish Pascal Age Gdln ACOG Testing 30-65 Normal [facility] Comment on above: Performed By: #### [id number] #### [facility] [address] [place] [address] Dr. Sathish Pascal DIAGNOSIS: Comment Normal [facility] Comment on above: Result Comment: NEGA TIVE FOR INTRAEPITHELIAL LESION OR MALIGNANCY. Performed at: WB Performed By: #### [id number] #### [facility] [address] [place] [address] Dr. Sathish Pascal HPV Aptima Negative Normal Negative [facility] Comment on above: Result Comment: This nucleic acid amplification test detects fourteen high-risk HPV types (16,18,31,33,35,39,45,51,52,56,58,59,66,68) without differentiation. Performed at: =G Performed By: #### [id number] #### [facility] [address] [place] [address] Dr. Sathish Pascal HPV Genotype Reflex Comment Normal [facility] Comment on above: Result Comment: Crit erpascual not met, HPV Genotype not performed. Performed at: WB Performed By: #### [id number] #### [facility] [address] [place] [address] Dr. Sathish Pascal Methodology: Comment Normal [facility] Comment on above: Result Comment: This liquid based ThinPrep(R) pap test was screened with the use of an image guided system. Performed at: WB Performed By: #### [id number] #### [facility] [address] [place] [address] Dr. Sathish Pascal Note: Comment Normal [facility] Comment on above: Result Comment: The Pap smear is a screening test designed to aid in the detection of premalignant and malignant conditions of the uterine cervix. It is not a diagnostic procedure and should not be used as the sole means of detecting cervical cancer. Both false-positive and false-negative reports do occur. . Performed at: WB Performed By: #### [id number] #### [facility] [address] [place] [address] Dr. Sathish Pascal Performed by: Comment Normal [facility] Comment on above: Result Comment: Lily Alvarez, Powder Core Tester (ASCP) Performed at: WB Performed By: #### [id number] #### [facility] [address] [place] [address] Dr. Sathish Pascal Specimen adequacy: Comment Normal [facility] Comment on above: Result Comment: Sati sfactory for evaluation. Endocervical and/or squamous metaplastic cells (endocervical component) are present. Performed at: WB Performed By: #### [id number] #### [facility] [address] [place] [address] Dr. Sathish Pascal HCG ( test) IA.rapi d Ql (U)Ordered By: Vikash Carmona on 09-24-2022 HCG ( test) Ql (U) Negative [facility] HCG,Urineon 09-24-2022 Beta HCG ( test) Ql (U) Negative Normal [facility] Comment on above: Result Comment: PERF ORMED BY: [place] [address] PATHOLOGIST PIPELAYING FITTER ZAKIYA NEGRETE M.D. Performed By: #### L YTES, CREAT, PP, CBC, BUN #### [facility] [address] CBC AUTO DIFFon 05-02-2022 BASO # 0.0 103/ul Normal 0.0-0.1 [facility] Comment on above: Performed By: #### C BC #### [facility] [address] [place] [address] Dr. Sathish Pascal Basophils/100 WBC (Bld) 0.3 % Normal 0.2-2.0 [facility] Comment on above: Performed By: #### C BC #### [facility] [address] [place] [address] Dr. Sathish Pascal EO # 0.1 103/ul Normal 0.0-0.7 [facility] Comment on above: Performed By: #### C BC #### [facility] [address] [place] [address] Dr. Sathish Pascal Eosinophils/100 WBC (Bld) 1.4 % Normal 0.9-7.0 [facility] Comment on above: Performed By: #### C BC #### [facility] [address] [place] [address] Dr. Sathish Pascal Erythrocyte distribution width (RBC) [Ratio] 12.5 % Normal 11.0-15.0 [facility] Comment on above: Performed By: #### C BC #### [facility] [address] [place] [address] Dr. Sathish Pascal Hematocrit (Bld) [Volume fraction] 47.9 % Normal 36.0-48.0 [facility] Comment on above: Performed By: #### C BC #### [facility] [address] [place] [address] Dr. Sathish Pascal Hemoglobin (Bld) [Mass/Vol] 15.5 g/dL Normal 12.0-16.0 [facility] Comment on above: Performed By: #### C BC #### [facility] [address] [place] [address] Dr. Sathish Pascal IG # 0.02 10e3/ul Normal 0.00-0.03 [facility] Comment on above: Performed By: #### C BC #### [facility] [address] [place] [address] Dr. Sathish Pascal IG % 0.2 % Normal 0.0-0.5 [facility] Comment on above: Performed By: #### C BC #### [facility] [address] [place] [address] Dr. Sathish Pascal LYMPH # 2.6 103/ul Normal 1.2-3.8 [facility] Comment on above: Performed By: #### C BC #### [facility] [address] [place] [address] Dr. Sathish Pascal Lymphocytes/100 WBC (Bld) 27.6 % Normal 20.5-60.0 [facility] Comment on above: Performed By: #### C BC #### [facility] [address] [place] [address] Dr. Sathish Pascal MANUAL DIFF REQ NO Normal [facility] Comment on above: Performed By: #### C BC #### [facility] [address] [place] [address] Dr. Sathish Pascal MCH (RBC) [Entitic mass] 29.0 pg Normal 26.7-34.0 [facility] Comment on above: Performed By: #### C BC #### [facility] [address] [place] [address] Dr. Sathish Pascal MCHC (RBC) [Mass/Vol] 32.4 g/dL Normal 29.9-35.2 [facility] Comment on above: Performed By: #### C BC #### [facility] [address] [place] [address] Dr. Sathish Pascal MCV (RBC) [Entitic vol] 89.5 fL Normal 81.0-99.0 [facility] Comment on above: Performed By: #### C BC #### [facility] [address] [place] [address] Dr. Sathish Pascal MONO # 0.7 103/ul Normal 0.3-0.8 [facility] Comment on above: Performed By: #### C BC #### [facility] [address] [place] [address] Dr. Sathish Pascal Monocytes/100 WBC (Bld) 7.4 % Normal 1.7-12.0 [facility] Comment on above: Performed By: #### C BC #### [facility] [address] [place] [address] Dr. Sathish Pascal NEUT # 5.8 103/ul Normal 1.4-6.5 [facility] Comment on above: Performed By: #### C BC #### [facility] [address] [place] [address] Dr. Sathish Pascal Neutrophils/100 WBC (Bld) 63.1 % Normal 43.0-75.0 [facility] Comment on above: Performed By: #### C BC #### [facility] [address] [place] [address] Dr. Sathish Pascal Platelet mean volume (Bld) [Entitic vol] 9.7 fL Normal 9.5-13.5 [facility] Comment on above: Performed By: #### C BC #### [facility] [address] [place] [address] Dr. Sathish Pascal PLT 337 103/ul Normal 150-450 [facility] Comment on above: Performed By: #### C BC #### [facility] [address] [place] [address] Dr. Sathish Pascal RBC 5.35 106/ul Normal 4.20-5.40 [facility] Comment on above: Performed By: #### C BC #### [facility] [address] [place] [address] Dr. Sathish Pascal WBC 9.3 103/ul Normal 4.0-11.0 [facility] Comment on above: Performed By: #### C BC #### [facility] [address] [place] [address] Dr. Sathish Pascal D-DIMERon 05-02-2022 D-DIMER 0.45 mg/L FEU Normal <=0.[address] [facility] Comment on above: Performed By: #### D DIM #### [facility] [address] [place] [address] Dr. Sathish Pascal D-DIMER COMMENTS SEE BELOW Normal [facility] Comment on above: Result Comment: Incr eases in D-Dimer concentration observed with thromboembolic events can be variable due to localization, size, and age of the thrombus. Therefore, a thromboembolic event cannot be diagnosed with certainty on the basis of the reference range. D-Dimers may also be elevated for a variety of disorders including: advanced age, , coronary disease, cancer, liver disease, infection, inflammation, hematoma, DIC, trauma, post-surgery, diabetes, thrombolytic or anticoagulant therapy, stress, and generalized hospitalization. Performed By: #### D DIM #### [facility] [address] [place] [address] Dr. Sathish Pascal LIPASEon 05-02-2022 Lipase [Catalytic activity/Vol] 315.0 U/L Normal 73.0-393.0 [facility] Comment on above: Performed By: #### H STROPN, CMP, LIPA #### [facility] [address] [place] [address] Dr. Sathish Pascal PREG HCG QUALon 05-02-2022 , QUAL Negative Normal NEGATIVE [facility] Comment on above: Performed By: #### P REG #### [facility] [address] [place] [address] Dr. Sathish Pascal PROF 14(COMP METB)on 022 Albumin [Mass/Vol] 4.2 g/dL Normal 3.4-5.0 [facility] Comment on above: Performed By: #### H STROPN, CMP, LIPA #### [facility] [address] [place] [address] Dr. Sathish Pascal Albumin/Globulin [Mass ratio] 0.9 {ratio} Normal [facility] Comment on above: Performed By: #### H STROPN, CMP, LIPA #### [facility] [address] [address] [address] Sathish Pascal ALP [Catalytic activity/Vol] 83 U/L Normal 46-116 [facility] Comment on above: Performed By: #### H STROPN, CMP, LIPA #### [facility] [address] [address] [address] Sathish Pascal ALT [Catalytic activity/Vol] 27 U/L Normal 14-59 [facility] Comment on above: Performed By: #### H STROPN, CMP, LIPA #### [facility] [address] [address] [address] Sathish Pascal Anion gap [Moles/Vol] 11.1 mmol/L Normal [facility] Comment on above: Performed By: #### H STROPN, CMP, LIPA #### [facility] [address] [place] [address] Dr. Sathish Pascal AST [Catalytic activity/Vol] 16 U/L Normal 15-37 [facility] Comment on above: Performed By: #### H STROPN, CMP, LIPA #### [facility] [address] [address] [address] Sathish Pascal Bilirubin [Mass/Vol] 0.5 mg/dL Normal 0.2-1.0 [facility] Comment on above: Performed By: #### H STROPN, CMP, LIPA #### [facility] [address] [address] [address] Sathish Pascal Calcium [Mass/Vol] 9.2 mg/dL Normal 8.5-10.1 [facility] Comment on above: Performed By: #### H STROPN, CMP, LIPA #### [facility] [address] [address] [address] Sathish Pascal Chloride [Moles/Vol] 102 mmol/L Normal 98-107 [facility] Comment on above: Performed By: #### H STROPN, CMP, LIPA #### [facility] [address] [address] [address] Sathish Pascal CO2 [Moles/Vol] 26.6 mmol/L Normal 21.0-32.0 [facility] Comment on above: Performed By: #### H STROPN, CMP, LIPA #### [facility] [address] [address] [address] Sathish Pascal Creatinine [Mass/Vol] 0.70 mg/dL Normal 0.55-1.02 [facility] Comment on above: Performed By: #### H STROPN, CMP, LIPA #### [facility] [address] [address] [address] Sathish Pascal EGFR-AF CITIZEN OF [place] >60 Normal >=60 [facility] Comment on above: Performed By: #### H STROPN, CMP, LIPA #### [facility] [address] [address] [address] Sathish Pascal EGFR-NON AF CITIZEN OF [place] >60 Normal >=60 [facility] Comment on above: Performed By: #### H STROPN, CMP, LIPA #### [facility] [address] [address] [address] Sathish Pascal Globulin (S) [Mass/Vol] 4.5 g/dL Normal [facility] Comment on above: Performed By: #### H STROPN, CMP, LIPA #### [facility] [address] [address] [address] Sathish Pascal Glucose [Mass/Vol] 96 mg/dL Normal 74-106 [facility] Comment on above: Performed By: #### H STROPN, CMP, LIPA #### [facility] [address] [address] [address] Sathish Pascal Potassium [Moles/Vol] 3.7 mmol/L Normal 3.5-5.1 [facility] Comment on above: Performed By: #### H STROPN, CMP, LIPA #### [facility] [address] [address] [address] Sathish Pascal Protein [Mass/Vol] 8.7 g/dL Critically high 6.4-8.2 [facility] Comment on above: Performed By: #### H STROPN, CMP, LIPA #### [facility] [address] [address] [address] Sathish Pascal Sodium [Moles/Vol] 136 mmol/L Normal 136-145 [facility] Comment on above: Performed By: #### H STROPN, CMP, LIPA #### [facility] [address] [address] [address] Sathish Pascal Urea nitrogen [Mass/Vol] 7.0 mg/dL Normal 7.0-18.0 [facility] Comment on above: Performed By: #### H STROPN, CMP, LIPA #### [facility] [address] [address] [address] Sathish Pascal Urea nitrogen/Creatinin e [Mass ratio] 10.0 mg/mg Normal [facility] Comment on above: Performed By: #### H STROPN, CMP, LIPA #### [facility] [address] [address] [address] Sathish Pascal TROPONIN, HIGH SENSITIVITYon 05-02-2022 HSTROP 4.9 pg/mL Normal 4.0-51.3 [facility] Comment on above: Result Comment: CUT- OFF POINTS HAVE BEEN ESTABLISHED BASED ON THE FOURTH UNIVERSAL DEFINITIONS OF MYOCARDIAL INFARCTION. THE UPPER REFERENCE LIMIT (URL) OF TROPONIN, DEFINED THE 99TH PERCENTILE OF cTnI DISTRIBUTION IN A REFERENCE POPULATION, HAS BEEN CONFIRMED THE DECISION THRESHOLD FOR [place] DIAGNOSIS. Performed By: #### H STROPN, CMP, LIPA #### [facility] [address] [address] [address] Sathish Pascal XR CHEST 2 Von 05-02-2022 XR CHEST 2 V EXAMINATION: XR CHES T 2 V HISTORY: Chest pain COMPARISON: Chest x-ray 02/05/2021 TECHNIQUE: PA and lateral chest x-rays FINDINGS: The lung parenchyma is free of consolidation or infiltrate. No pneumothorax or pleural effusion. The cardiac, mediastinal and hilar contours are normal. The visualized osseous structures exhibit no gross abnormality. IMPRESSION: No acute cardiopulmonary abnormality. Electronically authenticated by: CAREN HURT Date: 2022-05-02 20:11 Normal [facility] COVID + FLU Quick Testingon 03-03-2022 SARS-CoV-2 (COVID-19) RNA CARLOTA+probe Ql (Unsp spec) Negative [employer] Other COVID + FLU Quick Testing Negative [employer] Other COVID Quick Testingon 2021 Result Negative [employer] Other Quick Fluon 10-11-2021 FLUAV Ab CF (S) [Titer] Negative [employer] Other FLUBV Ab CF (S) [Titer] Negative [employer] Other COVID Quick Testingon 2021 Result Negative [employer] Other Quick Fluon 09-06-2021 FLUAV Ab CF (S) [Titer] Negative [employer] Other FLUBV Ab CF (S) [Titer] Negative [employer] Other Quick Fluon 07-24-2021 FLUAV Ab CF (S) [Titer] Negative [employer] Other FLUBV Ab CF (S) [Titer] Negative [employer] Other CNOVon 11-24-2018 CNOV Office Visit (NIC ) ----- ERIKA DOWNEY ([id number]) 1990 F Date Time Provider Department 11/24/18 11:45 AM KASSANDRA LORD During your visit today, we recorded the following information about you: Pulse Respiration Blood pressure Weight 85/minute 18/minute 107/78 59 kg Height Last Period 1.6 m 11/14/18 Rabmo Castro DO 11/24/2018 12:40 PM Addendum Recommendation include: - Therapeutic massage - Physical therapy - Mindfulness based stress management Obtain your occipital nerve block and contact us when you are ready to pursue the above options. Kassandra Lord MD 11/25/2018 2:32 PM Signed [facility] Follow-Up Evaluation Date: November 24, 2018 - 12:49 PM Chief Complaint: headache and left eye pain SUBJECTIVE: Erika Downey is a 28 year old who presents to [facility] Pain Management Department for a follow up appointment for occipital neuralgia type headache. The plan from the last visit on 09/24/2018 was: 1. Obtain neck images (MRI and Xrays) from local pain physician or if not available message Dr. Lord's office so orders can be placed before next follow up appointment. 2. Continue with current pain medication regiment for now 3. RTC next available appointment once images have been obtained Since the last visit, the patient reports a recent flare-up with pain occurring everyday for the past week. She had her cervical spine images uploaded and review reveals no cervical spine pathology. She reports she is afraid to move her neck too fast or pull her hair up because this will cause an exacerbation of her pain. She reports that her pain is worse when her stress level increases. She has had significant relief with a previous occipital nerve block and is scheduled to have one performed in the near future. Pain Location: occipital area of head Does the pain radiate? Yes, to the left eye. Distribution: N/A Duration: 1 year. Symptoms have been persistent. Pain character: aching, pressure and throbbing Current pain intensity (on a scale of 0-10/10): 2 Best pain intensity (on a scale of 0-10/10): 1 Worst pain intensity (on a scale of 0-10/10): 8 Exacerbating factors: fast neck movement, flexion and extension, pressure Alleviating factors: muscle relaxants, occipital nerve block Sleep disturbance? No Previous pain treatments: physical therapy, medications, injections Physical Therapy: None currently Current Outpatient Medications: Current Outpatient Medications: lifitegrast (XIIDRA) 5 % dpet Use in eyes. ibuprofen (MOTRIN) 800 mg tablet Take 800 mg by mouth every 6 hours as needed. Biotin 2,500 mcg cap Take 5,000 mcg by mouth. Chlorhexidine Gluconate (PERIDEX) 0.12 % solution 15 mL. cyclobenzaprine (FLEXERIL) 5 mg tablet Take 5 mg by mouth. Lacto.acidophilus-Bif.ani malis 10 billion cell chew Take 1 tablet by mouth. NORTREL 1/35, 28, 1-35 mg-mcg per tablet TK 1 T PO QD valACYclovir (VALTREX) 500 mg tablet TK 1 T PO D om 3/E/linol/ala/oleic/gla/l ip (OMEGA 3-6-9 ORAL) Take 1,200 mg by mouth twice daily. diclofenac, EC, (VOLTAREN) 75 mg EC tablet Take 75 mg by mouth as needed. RESTASIS 0.05 % ophthalmic emulsion INSTILL 1 DROP INTO EACH EYE BID No current facility-administered medications for this visit. Current Anticoagulant Therapy: No OARRS: Reviewed: The patient's OARRS report was reviewed and is consistent with the reported medication use. Pain medications reviewed: Yes Past Medical History: PAST MEDICAL HISTORY Diagnosis Date - Occipital neuralgia Past Surgical History: PAST SURGICAL HISTORY Procedure Laterality Date - ENLARGE BREAST WITH IMPLANT Breast augmentation - PAST SURGICAL HISTORY OF lower back surgery - PAST SURGICAL HISTORY OF mole removed Family History: FAMILY HISTORY Problem Relation Age of Onset - other (surgeries) Mother - Diabetes Father - Hypertension Father - Lipids Father Social History: Alcohol Use: Yes (rare) Tobacco Use: Never Drug Use: No Occupation: Employed- works at [employer] Review of Systems: GENERAL: No weight loss, malaise or fevers., SEE HPI HEENT: No changes in hearing or vision, no nose bleeds or other nasal problems, Head Positive for headache, chronic NECK: Negative for lumps, goiter, pain and significant neck swelling RESPIRATORY: Negative for cough, wheezing or shortness of breath. CARDIOVASCULAR: Negative for chest pain, leg swelling or palpitations. GASTROINTESTINAL: Negative for abdominal discomfort, nausea, vomiting GENITOURINARY: Not reviewed SKIVER MACHINE: Not reviewed MUSCULOSKELETAL: neck pain NEUROLOGIC: Positive for headaches: lightheadedness: dizziness SKIN: Negative for lesions, rash, and itching. PSYCHIATRIC: Negative for sleep disturbance, mood disorder and recent psychosocial stressors. HEMATOLOGIC/LYMPHATIC/IMM UNOLOGIC: Negative for prolonged bleeding, bruising easily or swollen nodes. ENDOCRINE: Negative for cold or heat intolerance, polyuria, polydipsia and goiter. The remainder of the ROS was negative. Physical Examination: BP 107/78 Pulse 85 Resp 18 Ht 5' 3 (1.60m) Wt 130 lb (59.0kg) SpO2 98% LMP 11/14/2018 BMI 23.03 kg/(m2). General:well appearing, alert and in no acute distress Skin: skin color, texture, turgor normal, no rashes or lesions HEENT: normocephalic, atraumatic, sclera non-icteric CV: regular rate and rhythm Resp: unlabored on room air GI: Soft, non-distended : not examined Musculoskeletal: Neck: Supple; good ROM., Tenderness over the upper cervical paraspinal muscles Back: No pain on palpation of the lumbar spine. Full ROM without reproducible pain. Straight leg raising test negative bilaterally. Extremities: negative findings: Strength normal Neurological: Mental Status: alert Cranial Nerves: Cranial nerves II-XII are grossly intact Reflexes: Not Examined Motor Strength: Motor strength and tone are 5/5 all throughout. Sensory: Sensation was intact to light touch all throughout. Gait: Normal. New Imaging and Diagnostic Studies: Yes, ASSESSMENT: Erika Downey is a 28 year old female with history of chronic neck pain with associated bilateral occipital nerve pain. She was originally diagnosed with occipital neuralgia and has undergone multiple occipital nerve blocks with significant relief. Upon review of the imaging of the cervical spine, there is no significant cervical spine pathology that warrants intervention. The patient's history and physical examination are consistent with myofascial pain with involvement of the occipital nerves. She also reports a clear correlation between stress and pain as well as fear of doing many normal every day activities. We recommend a mindfulness based stress management program, therapeutic massage and physical therapy. The patient states she would like to receive her occipital nerve block first and will contact us when she is ready to pursue these treatments. She is willing to participate in the stress management program and we will look into a location closer to her residence. (M54.2) Cervicalgia (primary encounter diagnosis) (M54.2, M54.9, G89.29) Chronic neck and back pain (M79.18) Myofascial pain Plan: 1. Mindfulness based stress management program 2. Therapeutic Massage 3. Physical therapy 4. RTC once ready to pursue above avenues of treatment The above plan and management options were discussed at length with patient. The patient is in agreement with the above and verbalized understanding. Rambo Castro, November 24, 2018 Teaching Statement I have interviewed and examined the patient and confirm the pertinent findings. I have discussed the case with the resident/fellow and agree with the findings and plan as documented. Kassandra Lord MD November 25, 2018 2:32 PM Referring Provider: BHAVIN DODD [[id number]] Allergies As of Date: 11/24/2018 (No Known Allergies) Date Reviewed: 11/24/2018 Reviewed by: Savana (Rn) ALLAN Cee - Fully Assessed Primary Visit Diagnosis:Cervicalgia [M54.2] Other Visit Diagnoses:Chronic neck and back pain [M54.2, M54.9, G89.29] Myofascial pain [M79.18] Prescriptions as of 11/24/2018 Sig: LIFITEGRAST 5 % EYE DROPS IN * Use in eyes. IBUPROFEN 800 MG TABLET Take 800 mg by mouth every 6 * BIOTIN 2,500 MCG CAPSULE Take 5,000 mcg by mouth. CHLORHEXIDINE GLUCONATE 0.12 * 15 mL. CYCLOBENZAPRINE 5 MG TABLET Take 5 mg by mouth. LACTOBAC. ACIDOPHILUS-BIFIDO.* Take 1 tablet by mouth. NORTREL 1/35 (28) 1 MG-35 MCG* TK 1 T PO QD VALACYCLOVIR 500 MG TABLET TK 1 T PO D OMEGA 3-6-9 ORAL Take 1,200 mg by mouth twice * DICLOFENAC SODIUM 75 MG TABLE* Take 75 mg by mouth as needed. RESTASIS 0.05 % EYE DROPS IN * INSTILL 1 DROP INTO EACH EYE * Problem List As Of Date: 11/24/2018 (None) Other instructions from your clinician: Recommendation include: - Therapeutic massage - Physical therapy - Mindfulness based stress management Obtain your occipital nerve block and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 HEMATOLOGIC/LYMPHATIC/IMM UNOLOGIC:Negative for prolonged bleeding, bruising easily, and swollen nodes. ENDOCRINE: Negative for cold or heat intolerance, polyuria, polydipsia and goiter. PHYSICAL EXAM: Pulse 72 BP 110/73 Pain 5/10 occipital and bitemporal headach exteding down the neck HIT-6=qv HEADACHE SCORES: Depression Screening 09/24/2018 11/20/2018 PHQ-2 Score 1 1 PHQ-9 Score 5 6 TR-2 Total Score - 2 TR - 2/7 SCORES 11/20/2018 TR-2 Total Score 2 HIT - 6 SCORES 11/20/2018 HIT - 6 Score 65 HEADACHE RELATED ED VISITS 11/20/2018 In the past year, how many times have you been admitted to the hospital or visited an Emergency Department or Urgent Care Facility for treatment of your headaches? 1 AVERAGE SLEEP TIME 11/20/2018 What is your average total sleep time per night over the past 4 weeks? 5 What is your average total sleep time during the day over the past 4 weeks? 0 Well looking. No craniocervical bruits. Neck supple with suboccipital nand occiptal tenderness and discomfort bilaterally and Torticollis none Skin: No evidence of neurophakomatosis Chest: Clear to P and A. Heart: Normal S1, S2 without S3. no murmur She can anteriorly disolocate her jaw Neurological Examination: Mental Status: Alert, attentive with normal fluent speech. Good recall of current and past events. No evidence of delusions or hallucinations. Cranial Nerves: II-XII intact including visual evangelista and fundi. Spontaneous venous pulsations were probably seen. Temporal summation of pain Motor Examination: normal including gait, stressed gait, tandem gait, power and coordination. Reflexes: full and symmetric, with down going toes. Sensation: intact to soft touch, pin and joint position sense. Radiology review: NA IMPRESSION: Cervicalgia with Associated occipital nerve pain bilaterally ( ABRAN and MARCELL) There is no compelling hx to suggest occipital neuralgia in this young patient: no trauma to neck or head I am more convinced she has head and neck pain with occipitalgia associated with it She meets migraine criteria as well. I discussed the approach to her headaches and neck pain. This may include therapy for the headache and good paced but gentle PT PLAN: Total time spent: 60 min, >50% of which was spent in the presence of the patient for purposes of education and counseling regarding the diagnosis. treatment and prevention of pain. Madalyn Johnson MD [facility] RUSS Telephone (NIC) ----- ERIKA DOWNEY ([id number]) 1990 F Date Time Provider Department 10/01/18 KASSANDRA LORD During your visit today, we recorded the following information about you: Zahida Andersen RN 10/01/2018 11:45 AM Signed Patient states only able to obtain a MRI of neck done over one year ago. No xray of neck. Would like to know if physician would like to order a MRI and /or neck xray. Initial office visit 09/24/18, 1. Obtain neck images (MRI and Xrays) from local pain physician or if not available message Dr. Lord's office so orders can be placed before next follow up appointment. 2. Continue with current pain medication regiment for now 3. RTC next available appointment once images have been obtained ?Zahida Priest PA-C, PA 10/02/2018 8:46 AM Signed MRI from 1 year ago is sufficient. Patient can schedule OV to review the images and bring the CD with her. DELANO Barba RN 10/02/2018 11:28 AM Signed Patient notified. Zahida Andersen RN Allergies As of Date: 10/01/2018 (No Known Allergies) Date Reviewed: 09/24/2018 Reviewed by: Erika Burch LPN - Fully Assessed Reason for Visit: Treatment Planning [881] Prescriptions as of 10/01/2018 Sig: BIOTIN 2,500 MCG CAPSULE Take 5,000 mcg by mouth. CHLORHEXIDINE GLUCONATE 0.12 * 15 mL. CYCLOBENZAPRINE 5 MG TABLET Take 5 mg by mouth. RESTASIS 0.05 % EYE DROPS IN * INSTILL 1 DROP INTO EACH EYE * LACTOBAC. ACIDOPHILUS-BIFIDO.* Take 1 tablet by mouth. NORTREL 1/35 (28) 1 MG-35 MCG* TK 1 T PO QD VALACYCLOVIR 500 MG TABLET TK 1 T PO D OMEGA 3-6-9 ORAL Take 1,200 mg by mouth twice * DICLOFENAC SODIUM 75 MG TABLE* Take 75 mg by mouth as needed. Problem List As Of Date: 10/01/2018 (None) Encounter Status:Closed by MILLICENT PRIEST on 10/02/18 [facility] 09-24-2018 CNOV Office Visit (PAINMN ) ----- ERIKA DOWNEY ([id number]) 1990 F Date Time Provider Department 09/24/18 12:30 PM KASSANDRA LORD During your visit today, we recorded the following information about you: Pulse Respiration Blood pressure Weight 91/minute 16/minute 132/79 59 kg Height Last Period 1.6 m 09/24/18 Kassandra Lord MD 09/24/2018 8:11 PM Signed Chronic Pain Consult Note Date: September 24, 2018 - 12:17 PM Referring physician: Alek Dodd This consult was requested by Alek Dodd for my medical opinion. My final recommendations will be communicated to the referring physician by way of the shared medical record for internal providers or by letter via the [employer] for external providers. Chief Complaint: Headache and left eye pain History of Present Illness: Erika Downey is a 28 year old female who presents to [facility] with a chief complaint of occipital headache and left eye pain. The patient has had this pain for 1 year. The pain is located in the occipital area of her head and radiates to bilateral temporal areas and left eye. The pain is described as an intermittent pain that is aching, pressure, non pulsatile and throbbing. Today, the pain intensity is rated as a 3 on a scale of 0-10. The pain intensity is rated 1 on the BEST day and a 8 on the WORST day. Symptoms interfere with work, driving and every day activities. The pain is exacerbated by moving her head too fast, flexing or extending her neck or putting pressure in the area. The pain is alleviated by muscle relaxants, warm pads and taking a hot shower. The patient reports 6 hours of uninterrupted sleep per night. Briefly her episodes started in September 2017. Before then she had complaints of neck pressure and some pain but never so intense. She went to a physical therapist who performed traction maneuvers after which she started having spells of extreme occipital pressure that radiates to her temples and sometimes to her left eye. She also reports that she had crunching in her neck as they released the traction. Her spells are associated with dizzy spells and sometimes nausea and lasts anywhere from a few hours to a day.. She was diagnosed by her orthopedic surgeon with occipital neuralgia, she was referred to a local pain clinic and then she was referred to [facility]. Tried gabapentin in the past but did not tolerate the side effects. She has been getting occipital nerve blocks periodically and they seem to work very well to control her pain. The patient denies unintentional weight loss, fevers, chills, or night sweats and numbness or tingling. Previous pain treatments: Medications (ibuprophen, cyclobenzaprine, gabapentin, diclofenac) Nerve blocks BILATERAL INJECTION BLOCK NERVE OCCIPITAL 10/24/17 INJECTION MEDIAL BRANCH NERVE BLOCK BILATERAL C2/3,3/4 11/28/17 INJECTION BLOCK NERVE OCCIPITAL 12/19/17 INJECTION BLOCK NERVE OCCIPITAL 04/10/18 Physical Therapy/Home Exercise: No Pain Medications: - Opioids: No - NSAIDs: ibuprofen 400 mg prn, diclofenac 75 mg PRN - Anti-Depressants: No - Anti-Convulsants: no - Others: Flexeril OARRS Report: Not Reviewed: not applicable Pain medications reviewed: Yes Past Medical History: PAST MEDICAL HISTORY Diagnosis Date - Occipital neuralgia Past Surgical History: PAST SURGICAL HISTORY Procedure Laterality Date - ENLARGE BREAST WITH IMPLANT Breast augmentation - PAST SURGICAL HISTORY OF lower back surgery - PAST SURGICAL HISTORY OF mole removed Family History: FAMILY HISTORY Problem Relation Age of Onset - other (surgeries) Mother - Diabetes Father - Hypertension Father - Lipids Father Social History: Alcohol Use: Not on file Tobacco Use: Not on file Drug Use: Not on file Occupation: Employed- [employer]. Psychiatric History: No Allergies: ALLERGIES No Known Allergies Current Outpatient Medications: Current Outpatient Prescriptions: Biotin 2,500 mcg cap Take 5,000 mcg by mouth. Chlorhexidine Gluconate (PERIDEX) 0.12 % solution 15 mL. cyclobenzaprine (FLEXERIL) 5 mg tablet Take 5 mg by mouth. RESTASIS 0.05 % ophthalmic emulsion INSTILL 1 DROP INTO EACH EYE BID Lacto.acidophilus-Bif.ani malis 10 billion cell chew Take 1 tablet by mouth. NORTREL 1/35, 28, 1-35 mg-mcg per tablet TK 1 T PO QD valACYclovir (VALTREX) 500 mg tablet TK 1 T PO D om 3/E/linol/ala/oleic/gla/l ip (OMEGA 3-6-9 ORAL) Take 1,200 mg by mouth twice daily. diclofenac, EC, (VOLTAREN) 75 mg EC tablet Take 75 mg by mouth as needed. No current facility-administered medications for this visit. Review of Systems: GENERAL: No weight loss or fevers. HEENT: Positive for frequent or significant headaches (at least once a week). See HPI NECK: positive for pain, no neck swelling. RESPIRATORY: Negative for cough, wheezing or shortness of breath. CARDIOVASCULAR: Negative for chest pain, or palpitations. GI: Negative for abdominal discomfort,diarrhea or constipation. MUSCULOSKELETAL: Positive for lower back surgery for herniated disk. SKIN: Negative for lesions, rash, and itching. PSYCH: Negative for sleep disturbance, break up in June seemed to increase the number of flare ups. HEMATOLOGY/LYMPHOLOGY: Negative for prolonged bleeding, bruising easily or cancer. NEURO: negative for seizures or tremors. All other reviewed and negative other than HPI. Physical Examination: BP 132/79 Pulse 91 Resp 16 Ht 5' 3 (1.60m) Wt 130 lb (59.0kg) SpO2 99% LMP 09/24/2018 BMI 23.03 kg/(m2). General:Well appearing, alert, in no acute distress, well-hydrated, well nourished., well appearing, alert and in no acute distress Skin: skin color, texture, turgor normal, no rashes or lesions HEENT: normocephalic, atraumatic, sclera non-icteric CV: Regular rate and rhythm - pulses present bilaterally Resp: unlabored on room air lungs clear to auscultation no wheezing or rhonchi GI: Soft, non-tender, non-distended. : not examined Musculoskeletal: Neck: Supple, tenderness on palpation over spinal processes and paravertebral muscles. Decreased cervical lordosis. limited flexion, extension and lateralization caused by pain. Back: pain on palpation over high thoracic paraspinous muscles and supraspinous processes. No pain on palpation of the lumbar spine. Full ROM without reproducible pain. Extremities: Extremities normal. No deformities, edema, or skin discoloration Neurological: Mental Status: alert, oriented to person, place and time Cranial Nerves: Cranial nerves II-XII are grossly intact Motor Strength: Motor strength and tone are 5/5 all throughout. Sensory: Sensation was intact to light touch all throughout. Gait: Normal. Recent Imaging: CT brain with Contrast 09/15/18 History:??PAT. STATES SHES BEEN HAVING PAIN AND PRESSURE IN HER LEFT EYE ?IT HAPPENS WHEN SHE LOOKS DOWN? SHE ALSO STATES SHE HAD A ISSUE TRYING TO GET HER CONTACT OUT OF HER EYE? ? Exam/Technique:??Contiguo us axial images are obtained of the brain??with 100 mL Omnipaque 300 intravenous contrast.? ? Comparison:??None.? ? Findings:??? The ventricles, cisterns and sulci are unremarkable.? ? No masses, mass effect or midline shift.? ? No parenchymal hemorrhage, epidural or subdural hematoma.? ? The bony calvarium appears intact.??The globes and orbits appear symmetric.??No proptosis.? ? No pathologic contrast enhancement at any level.? ? The visualized paranasal sinuses are well aerated.? ? IMPRESSION:? Negative study.?? CT orbits/ Sella Turcica 09/15/18 Exam/Technique:??Contiguo us axial images are obtained of the orbits??with 100 mL Omnipaque 300 intravenous contrast.?Coronal and sagittal reconstructions were performed and reviewed. Automated exposure control utilized.? ? ? Comparison:??CT brain from the same date.??01/26/2018 MRI brain.? ? Findings:??? The globes are round and symmetric.??The extraocular muscles are intact.??The optic nerves appear within normal limits and are symmetric in size.? ? No proptosis.? ? No abnormal calcifications or intra-articular abnormal density.??The intraorbital fat is preserved bilaterally.??No orbital mass lesion.??No pathology at the orbital apex.? ? Midline structures including the sella appears within normal limits.? ? No pathologic contrast enhancement at any level.? ? The bony structures appear intact.? ? The visualized paranasal sinuses are well aerated.? ? IMPRESSION:? Negative study.? Recent Labs: NA EMG/NCV: NA Assessment: Erika Downey is a 28 year old female with Chronic bilateral occipital pain that radiates to her temporal area and left eye along with upper back pain who was diagnosed by her local physician as occipital neuralgia and was referred to [facility] for a second opinion. She has been managing the pain with NSAIDS, muscle relaxants and occipital nerve blocks (with some results). She had images of her head and eye which were both normal. There are no images of her neck on her file. She does not recall if she had them done at some point so she is going to contact her local physician in order to obtain the records and mail them to the office. Her physical examination is positive for pain and tenderness in her occipital area along with her upper thoracic paraspinal area and spinal processes along with fear of moving her neck because it might cause her pain. This seems out of proportion with typical occipital neuralgia. There also seem to be some component of myofascial pain but we still need to rule out neck pathology that could be contributing to the symptoms. Plan as stated below was discussed with patient. (M54.81) Bilateral occipital neuralgia (primary encounter diagnosis) (M54.2, M54.9, G89.29) Chronic neck and back pain (M79.18) Myofascial pain Plan: 1. Obtain neck images (MRI and Xrays) from local pain physician or if not available message Dr. Lord's office so orders can be placed before next follow up appointment. 2. Continue with current pain medication regiment for now 3. RTC next available appointment once images have been obtained Jodie Suggs MD September 24, 2018 Teaching Statement I have interviewed and examined the patient and confirm the pertinent findings. I have discussed the case with the resident/fellow and agree with the findings and plan as documented. Kassandra Lord MD September 24, 2018 8:11 PM Jodie Suggs MD 09/24/2018 2:10 PM Addendum -Please obtain Neck MRI and X Ray images (CD) from local provider and sent them Attn to Dr. Lord. -If no images, please message Dr. Lord so we can order studies before next visit. -Continue with current pain medication regimen for now. Referring Provider: ALEK DODD [[id number]] Allergies As of Date: 09/24/2018 (No Known Allergies) Date Reviewed: 09/24/2018 Reviewed by: Erika Burch LPN - Fully Assessed Reason for Visit: New Patient Evaluation [154] Medication Update [1676] Primary Visit Diagnosis:Bilateral occipital neuralgia [M54.81] Other Visit Diagnoses:Chronic neck and back pain [M54.2, M54.9, G89.29] Myofascial pain [M79.18] Prescriptions as of 09/24/2018 Sig: BIOTIN 2,500 MCG CAPSULE Take 5,000 mcg by mouth. CHLORHEXIDINE GLUCONATE 0.12 * 15 mL. CYCLOBENZAPRINE 5 MG TABLET Take 5 mg by mouth. RESTASIS 0.05 % EYE DROPS IN * INSTILL 1 DROP INTO EACH EYE * LACTOBAC. ACIDOPHILUS-BIFIDO.* Take 1 tablet by mouth. NORTREL 35 (28) 1 MG-35 MCG* TK 1 T PO QD VALACYCLOVIR 500 MG TABLET TK 1 T PO D OMEGA 3-6-9 ORAL Take 1,200 mg by mouth twice * DICLOFENAC SODIUM 75 MG TABLE* Take 75 mg by mouth as needed. Problem List As Of Date: 09/24/2018 (None) Other instructions from your clinician: -Please obtain Neck MRI and X Ray images (CD) from local provider and sent them Attn to Dr. Lord. -If no images, please message Dr. Lord so we can order studies before next visit. -Continue with current pain medication regimen for now. Disposition: Return in about 2 weeks (around 10/08/2018). Follow-up and Disposition History Recorded Encounter Status:Closed by KASSANDRA LORD MD on 09/24/18 Normal [facility] PROGRESSon 09-24-2018 Protein mass conc HNO ID: [id number] Author: Kassandra Lord Service: (none) Author Type: Physician Type: Progress Notes Filed: 09/24/2018 8:11 PM Note Text: Chronic Pain Consult Note Date: September 24, 2018 - 12:17 PM Referring physician: Alek Dodd This consult was requested by Alek Dodd for my medical opinion. My final recommendations will be communicated to the referring physician by way of the shared medical record for internal providers or by letter via the [employer] for external providers. Chief Complaint: Headache and left eye pain History of Present Illness: Erika Downey is a 28 year old female who presents to [facility] with a chief complaint of occipital headache and left eye pain. The patient has had this pain for 1 year. The pain is located in the occipital area of her head and radiates to bilateral temporal areas and left eye. The pain is described as an intermittent pain that is aching, pressure, non pulsatile and throbbing. Today, the pain intensity is rated as a 3 on a scale of 0-10. The pain intensity is rated 1 on the BEST day and a 8 on the WORST day. Symptoms interfere with work, driving and every day activities. The pain is exacerbated by moving her head too fast, flexing or extending her neck or putting pressure in the area. The pain is alleviated by muscle relaxants, warm pads and taking a hot shower. The patient reports 6 hours of uninterrupted sleep per night. Briefly her episodes started in September 2017. Before then she had complaints of neck pressure and some pain but never so intense. She went to a physical therapist who performed traction maneuvers after which she started having spells of extreme occipital pressure that radiates to her temples and sometimes to her left eye. She also reports that she had crunching in her neck as they released the traction. Her spells are associated with dizzy spells and sometimes nausea and lasts anywhere from a few hours to a day.. She was diagnosed by her orthopedic surgeon with occipital neuralgia, she was referred to a local pain clinic and then she was referred to [facility]. Tried gabapentin in the past but did not tolerate the side effects. She has been getting occipital nerve blocks periodically and they seem to work very well to control her pain. The patient denies unintentional weight loss, fevers, chills, or night sweats and numbness or tingling. Previous pain treatments: Medications (ibuprophen, cyclobenzaprine, gabapentin, diclofenac) Nerve blocks BILATERAL INJECTION BLOCK NERVE OCCIPITAL 10/24/17 INJECTION MEDIAL BRANCH NERVE BLOCK BILATERAL C2/3,3/4 11/28/17 INJECTION BLOCK NERVE OCCIPITAL 12/19/17 INJECTION BLOCK NERVE OCCIPITAL 04/10/18 Physical Therapy/Home Exercise: No Pain Medications: - Opioids: No - NSAIDs: ibuprofen 400 mg prn, diclofenac 75 mg PRN - Anti-Depressants: No - Anti-Convulsants: no - Others: Flexeril OARRS Report: Not Reviewed: not applicable Pain medications reviewed: Yes Past Medical History: PAST MEDICAL HISTORY Diagnosis Date - Occipital neuralgia Past Surgical History: PAST SURGICAL HISTORY Procedure Laterality Date - ENLARGE BREAST WITH IMPLANT Breast augmentation - PAST SURGICAL HISTORY OF lower back surgery - PAST SURGICAL HISTORY OF mole removed Family History: FAMILY HISTORY Problem Relation Age of Onset - other (surgeries) Mother - Diabetes Father - Hypertension Father - Lipids Father Social History: Alcohol Use: Not on file Tobacco Use: Not on file Drug Use: Not on file Occupation: Employed- [employer]. Psychiatric History: No Allergies: ALLERGIES No Known Allergies Current Outpatient Medications: Current Outpatient Prescriptions: Biotin 2,500 mcg cap Take 5,000 mcg by mouth. Chlorhexidine Gluconate (PERIDEX) 0.12 % solution 15 mL. cyclobenzaprine (FLEXERIL) 5 mg tablet Take 5 mg by mouth. RESTASIS 0.05 % ophthalmic emulsion INSTILL 1 DROP INTO EACH EYE BID Lacto.acidophilus-Bif.ani malis 10 billion cell chew Take 1 tablet by mouth. NORTREL 1/35, 28, 1-35 mg-mcg per tablet TK 1 T PO QD valACYclovir (VALTREX) 500 mg tablet TK 1 T PO D om 3/E/linol/ala/oleic/gla/l ip (OMEGA 3-6-9 ORAL) Take 1,200 mg by mouth twice daily. diclofenac, EC, (VOLTAREN) 75 mg EC tablet Take 75 mg by mouth as needed. No current facility-administered medications for this visit. Review of Systems: GENERAL: No weight loss or fevers. HEENT: Positive for frequent or significant headaches (at least once a week). See HPI NECK: positive for pain, no neck swelling. RESPIRATORY: Negative for cough, wheezing or shortness of breath. CARDIOVASCULAR: Negative for chest pain, or palpitations. GI: Negative for abdominal discomfort,diarrhea or constipation. MUSCULOSKELETAL: Positive for lower back surgery for herniated disk. SKIN: Negative for lesions, rash, and itching. PSYCH: Negative for sleep disturbance, break up in June seemed to increase the number of flare ups. HEMATOLOGY/LYMPHOLOGY: Negative for prolonged bleeding, bruising easily or cancer. NEURO: negative for seizures or tremors. All other reviewed and negative other than HPI. Physical Examination: BP 132/79 Pulse 91 Resp 16 Ht 5' 3 (1.60m) Wt 130 lb (59.0kg) SpO2 99% LMP 09/24/2018 BMI 23.03 kg/(m2). General:Well appearing, alert, in no acute distress, well-hydrated, well nourished., well appearing, alert and in no acute distress Skin: skin color, texture, turgor normal, no rashes or lesions HEENT: normocephalic, atraumatic, sclera non-icteric CV: Regular rate and rhythm - pulses present bilaterally Resp: unlabored on room air lungs clear to auscultation no wheezing or rhonchi GI: Soft, non-tender, non-distended. : not examined Musculoskeletal: Neck: Supple, tenderness on palpation over spinal processes and paravertebral muscles. Decreased cervical lordosis. limited flexion, extension and lateralization caused by pain. Back: pain on palpation over high thoracic paraspinous muscles and supraspinous processes. No pain on palpation of the lumbar spine. Full ROM without reproducible pain. Extremities: Extremities normal. No deformities, edema, or skin discoloration Neurological: Mental Status: alert, oriented to person, place and time Cranial Nerves: Cranial nerves II-XII are grossly intact Motor Strength: Motor strength and tone are 5/5 all throughout. Sensory: Sensation was intact to light touch all throughout. Gait: Normal. Recent Imaging: CT brain with Contrast 09/15/18 History:??PAT. STATES SHES BEEN HAVING PAIN AND PRESSURE IN HER LEFT EYE ?IT HAPPENS WHEN SHE LOOKS DOWN? SHE ALSO STATES SHE HAD A ISSUE TRYING TO GET HER CONTACT OUT OF HER EYE? ? Exam/Technique:??Contiguo us axial images are obtained of the brain??with 100 mL Omnipaque 300 intravenous contrast.? ? Comparison:??None.? ? Findings:??? The ventricles, cisterns and sulci are unremarkable.? ? No masses, mass effect or midline shift.? ? No parenchymal hemorrhage, epidural or subdural hematoma.? ? The bony calvarium appears intact.??The globes and orbits appear symmetric.??No proptosis.? ? No pathologic contrast enhancement at any level.? ? The visualized paranasal sinuses are well aerated.? ? IMPRESSION:? Negative study.?? CT orbits/ Sella Turcica 09/15/18 Exam/Technique:??Contiguo us axial images are obtained of the orbits??with 100 mL Omnipaque 300 intravenous contrast.?Coronal and sagittal reconstructions were performed and reviewed. Automated exposure control utilized.? ? ? Comparison:??CT brain from the same date.??01/26/2018 MRI brain.? ? Findings:??? The globes are round and symmetric.??The extraocular muscles are intact.??The optic nerves appear within normal limits and are symmetric in size.? ? No proptosis.? ? No abnormal calcifications or intra-articular abnormal density.??The intraorbital fat is preserved bilaterally.??No orbital mass lesion.??No pathology at the orbital apex.? ? Midline structures including the sella appears within normal limits.? ? No pathologic contrast enhancement at any level.? ? The bony structures appear intact.? ? The visualized paranasal sinuses are well aerated.? ? IMPRESSION:? Negative study.? Recent Labs: NA EMG/NCV: NA Assessment: Erika Downey is a 28 year old female with Chronic bilateral occipital pain that radiates to her temporal area and left eye along with upper back pain who was diagnosed by her local physician as occipital neuralgia and was referred to [facility] for a second opinion. She has been managing the pain with NSAIDS, muscle relaxants and occipital nerve blocks (with some results). She had images of her head and eye which were both normal. There are no images of her neck on her file. She does not recall if she had them done at some point so she is going to contact her local physician in order to obtain the records and mail them to the office. Her physical examination is positive for pain and tenderness in her occipital area along with her upper thoracic paraspinal area and spinal processes along with fear of moving her neck because it might cause her pain. This seems out of proportion with typical occipital neuralgia. There also seem to be some component of myofascial pain but we still need to rule out neck pathology that could be contributing to the symptoms. Plan as stated below was discussed with patient. (M54.81) Bilateral occipital neuralgia (primary encounter diagnosis) (M54.2, M54.9, G89.29) Chronic neck and back pain (M79.18) Myofascial pain Plan: 1. Obtain neck images (MRI and Xrays) from local pain physician or if not available message Dr. Lord's office so orders can be placed before next follow up appointment. 2. Continue with current pain medication regiment for now 3. RTC next available appointment once images have been obtained Jodie Suggs MD September 24, 2018 Teaching Statement I have interviewed and examined the patient and confirm the pertinent findings. I have discussed the case with the resident/fellow and agree with the findings and plan as documented. Kassandra Lord MD September 24, 2018 8:11 PM Normal [facility] Surgical Pathologyon 018 Surgical Pathology (NOTE)[id number] LABORATORIESCONSULTING PATHOLOGISTS CORPORATIONANATOMIC [id number] [place] [address]. [place], [place] [address] Fax: SURGICAL PATHOLOGY CONSULTATIONPatient Name: Pool DOWNEY Rec: [id number] Number: [id number]: 10/14/2017Received: 10/15/2017Reported: 10/16/2017 12:12-- Diagnosis --SKIN, RIGHT LATERAL BREAST, RE-EXCISION: - RESIDUAL DYSPLASTIC COMPOUND NEVUS WITH MODERATE ATYPIAAND SCAR. - MARGINS APPEAR NEGATIVE FOR INVOLVEMENT.Thierry Dykes M.D.Electronically Signed [employer]/10/15/2017Clinical InformationPre-op Diagnosis: LESION/NEVUS, PREVIOUS BIOPSY [facility], 07/16/2017, [id number], DX: COMPOUND NEVUSWITH AREAS OF MODERATE DISARRAY, COMMENT: THERE IS JUNCTIONALDISARRAY AT THE TRANSECTED PERIPHERAL MARGIN AND A RE-EXCISION TOENSURE COMPLETE REMOVAL IS RECOMMENDED. THIS MATERIAL WAS REVIEWEDWITH DR. ALDRICH. Operative Findings: RT LATERAL BREAST STITCH SUPERIOR Operation Performed: EXCISIONSource of Specimen1: JAR #1- RT LATERAL BREASTGross Description ERIKA DOWNEY, RT LATERAL BREAST A 3.1 x 1.4 x 0.3 (depth) cm orientedtan skin ellipse with a stitch designating superior. The superiorhalf is inked blue and inferior half black. On the skin surface is a0.5 cm duenas-white scar. Cassette summary: A-B stitch placed at 12o'clock and entirely serially submitted from 3-9. asMicroscopic DescriptionSkin to the subcutaneous fat shows a scar and mixed inflammation. Adjacent to the scar there are residual nests of melanocytes at thedermal epidermal junction with moderate atypia and single melanocytespredominating over nests, but falling short of confluence. There arealso few nests in the dermis showing maturation. Margins appear freeof involvement. There is no evidence of malignancy. Normal [facility] Vital Signs Date Time Vital Sign Value Performing Clinician Facility 09-30-2023 11:28-0500 Body height 160 cm Monet Ruiz NOVELTIES SALES REPRESENTATIVE-SHOVEL OPERATOR Work Phone: [facility] [place] 09-30-2023 11:28-0500 Body mass index (BMI) [Ratio] 23.91 kg/m2 Monet Ruiz [employer]OVELT[employer] SALES REPRESENTATIVE-SHOVEL OPERATOR Work Phone: [facility] [place] 09-30-2023 11:28-0500 Body weight 61.24 kg Monet Ruiz NOVELTIES SALES REPRESENTATIVE-SHOVEL OPERATOR Work Phone: [facility] [place] 09-30-2023 11:28-0500 Diastolic blood pressure 74 mm[Hg] Monet Ruiz NOVELTIES SALES REPRESENTATIVE-SHOVEL OPERATOR Work Phone: [facility] [place] 09-30-2023 11:28-0500 Systolic blood pressure 134 mm[Hg] Monet Ruiz NOVELTIES SALES REPRESENTATIVE-SHOVEL OPERATOR Work Phone: [facility] [place] 09-05-2023 10:59-0500 Body height 160 cm Sylvia Myers MD Work Phone: [facility] 09-05-2023 10:59-0500 Body mass index (BMI) [Ratio] 23.56 kg/m2 Sylvia Myers MD Work Phone: [facility] 09-05-2023 10:59-0500 Body weight 60.33 kg Sylvia Myers MD Work Phone: [facility] 09-05-2023 10:59-0500 Diastolic blood pressure 80 mm[Hg] Sylvia Myers MD Work Phone: [facility] 09-05-2023 10:59-0500 Heart rate 85 /min Sylvia Myers MD Work Phone: [facility] 09-05-2023 10:59-0500 Systolic blood pressure 118 mm[Hg] Sylvia Myers MD Work Phone: [facility] 08-20-2023 10:01-0500 Body height 160 cm Monet Ruiz NOVELTIES SALES REPRESENTATIVE-SHOVEL OPERATOR Work Phone: [facility] 08-20-2023 10:01-0500 Body mass index (BMI) [Ratio] 23.91 kg/m2 Monet Ruiz NOVELTIES SALES REPRESENTATIVE-SHOVEL OPERATOR Work Phone: [facility] 08-20-2023 10:01-0500 Body weight 61.24 kg Monet Ruiz NOVELTIES SALES REPRESENTATIVE-SHOVEL OPERATOR Work Phone: [facility] 08-20-2023 10:01-0500 Diastolic blood pressure 94 mm[Hg] Monet Ruiz NOVELTIES SALES REPRESENTATIVE-SHOVEL OPERATOR Work Phone: [facility] 08-20-2023 10:01-0500 Heart rate 90 /min Monet Ruiz [employer]OVELTIES SALES REPRESENTATIVE-SHOVEL OPERATOR Work Phone: [facility] 08-20-2023 10:01-0500 Systolic blood pressure 137 mm[Hg] Monet Ruiz NOVELTIES SALES REPRESENTATIVE-SHOVEL OPERATOR Work Phone: [facility] 08-07-2023 08:59-0500 Body height 160 cm Bhavin Dodd PA Work Phone: [facility] 08-07-2023 08:59-0500 Body mass index (BMI) [Ratio] 23.91 kg/m2 Bhavin Dodd PA Work Phone: [facility] 08-07-2023 08:59-0500 Body weight 61.24 kg Bhavin Dodd PA Work Phone: [facility] 08-07-2023 08:59-0500 Diastolic blood pressure 89 mm[Hg] Bhavin Dodd PA Work Phone: [facility] 08-07-2023 08:59-0500 Heart rate 94 /min Bhavin Dodd PA Work Phone: [facility] 08-07-2023 08:59-0500 Respiratory rate 18 /min Bhavin Dodd PA Work Phone: [employer] 08-07-2023 08:59-0500 SaO2% (BldA) [Mass fraction] 99 % Bhavin REILLY Work Phone: [employer] 08-07-2023 08:59-0500 Systolic blood pressure 111 mm[Hg] Bhavin REILLY Work Phone: [employer] 03-23-2023 14:20-0400 Body height 160.02 cm Eleonora Santos Other [employer] Other 03-23-2023 14:20-0400 Body mass index (BMI) [Ratio] 24.27 kg/m2 Eleonora Santos Other [employer] Other 03-23-2023 14:20-0400 Body temperature 98.7 [degF] Eleonora Santos Other [employer] Other 03-23-2023 14:20-0400 Body weight 62.14 kg Eleonora Santos Other [employer] Other 03-23-2023 14:20-0400 Diastolic blood pressure 71 mm[Hg] Eleonora Santos Other [employer] Other 03-23-2023 14:20-0400 Respiratory rate 18 /min Eleonora Santos Other [employer] Other 03-23-2023 14:20-0400 SaO2% (BldA) [Mass fraction] 98 % Eleonora Santos Other [employer] Other 03-23-2023 14:20-0400 Systolic blood pressure 101 mm[Hg] Eleonora Santos Other [employer] Other 11-12-2022 14:00-0400 Body height 160.02 cm Jose Casey Other [employer] Other 11-12-2022 14:00-0400 Body mass index (BMI) [Ratio] 24.44 kg/m2 Jose Casey Other [employer] Other 11-12-2022 14:00-0400 Body weight 62.6 kg Jose Casey Other [employer] Other 11-12-2022 14:00-0400 Diastolic blood pressure 60 mm[Hg] Jose Casey Other [employer] Other 11-12-2022 14:00-0400 Systolic blood pressure 90 mm[Hg] Jose Casey Other [employer] Other 09-24-2022 14:48-0500 Diastolic blood pressure 63 mm[Hg] MD Irma Toledo Work Phone: [facility] 09-24-2022 14:48-0500 Heart rate 87 /min MD Irma Toledo Work Phone: [facility] 09-24-2022 14:48-0500 Respiratory rate 16 /min MD Irma Toledo Work Phone: [facility] 09-24-2022 14:48-0500 SaO2% (BldA) [Mass fraction] 99 % MD Irma Toledo Work Phone: [facility] 09-24-2022 14:48-0500 Systolic blood pressure 113 mm[Hg] MD Irma Toledo Work Phone: [facility] 09-24-2022 13:53-0500 Body height 160.02 cm MD Irma Toledo Work Phone: [facility] 09-24-2022 13:53-0500 Body weight 65.77 kg MD Irma Toledo Work Phone: [facility] 04-08-2022 14:00-0400 Body height 160.02 cm Vikash Kelsealavelle Other [employer] Other 04-08-2022 14:00-0400 Body mass index (BMI) [Ratio] 26.21 kg/m2 Vikash Carmona Other [employer] Other 04-08-2022 14:00-0400 Body weight 67.13 kg Vikash Carmona Other [employer] Other 04-08-2022 14:00-0400 Diastolic blood pressure 75 mm[Hg] Vikash Carmona Other [employer] Other 04-08-2022 14:00-0400 Systolic blood pressure 114 mm[Hg] Vikash Carmona Other [employer] Other 03-03-2022 10:40-0400 Body height 160.02 cm Carla Palafox Other [employer] Other 03-03-2022 10:40-0400 Body mass index (BMI) [Ratio] 25.68 kg/m2 Carla Palafox Other [employer] Other 03-03-2022 10:40-0400 Body temperature 98.7 [degF] Carla Palafox Other [employer] Other 03-03-2022 10:40-0400 Body weight 65.77 kg Carla Palafox Other [employer] Other 03-03-2022 10:40-0400 SaO2% (BldA) [Mass fraction] 96 % Carla Palafox Other [employer] Other 11-12-2021 16:15-0400 Body height 160.02 cm Haley Wilhelm Other [employer] Other 11-12-2021 16:15-0400 Body mass index (BMI) [Ratio] 24.8 kg/m2 Haley Wilhelm Other [employer] Other 11-12-2021 16:15-0400 Body temperature 97.5 [degF] Haley Wilhelm Other [employer] Other 11-12-2021 16:15-0400 Body weight 63.5 kg Haley Wilhelm Other [employer] Other 11-12-2021 16:15-0400 Respiratory rate 18 /min Haley Wilhelm Other [employer] Other 11-12-2021 16:15-0400 SaO2% (BldA) [Mass fraction] 98 % Haley Wilhelm Other [employer] Other 10-11-2021 19:45-0500 Body height 160.02 cm Haley Wilhelm Other [employer] Other 10-11-2021 19:45-0500 Body mass index (BMI) [Ratio] 24.8 kg/m2 Haley Wilhelm Other [employer] Other 10-11-2021 19:45-0500 Body temperature 98.3 [degF] Haley Wilhelm Other [employer] Other 10-11-2021 19:45-0500 Body weight 63.5 kg Haley Wilhelm Other [employer] Other 10-11-2021 19:45-0500 Respiratory rate 18 /min Haley Wilhelm Other [employer] Other 10-11-2021 19:45-0500 SaO2% (BldA) [Mass fraction] 99 % Haley Wilhelm Other [employer] Other 09-06-2021 10:15-0500 Body height 160.02 cm Ama Schrader Other [employer] Other 09-06-2021 10:15-0500 Body mass index (BMI) [Ratio] 25.15 kg/m2 Ama Schrader Other [employer] Other 09-06-2021 10:15-0500 Body temperature 98 [degF] Ama Schrader Other [employer] Other 09-06-2021 10:15-0500 Body weight 64.41 kg Ama Schrader Other [employer] Other 09-06-2021 10:15-0500 Respiratory rate 18 /min Ama Schrader Other [employer] Other 09-06-2021 10:15-0500 SaO2% (BldA) [Mass fraction] 99 % Ama Schrader Other [employer] Other 07-24-2021 13:00-0500 Body height 160.02 cm Lorie Funes Other [employer] Other 07-24-2021 13:00-0500 Body mass index (BMI) [Ratio] 24.8 kg/m2 Lorie Funes Other [employer] Other 07-24-2021 13:00-0500 Body temperature 99.8 [degF] Lorie Funes Other [employer] Other 07-24-2021 13:00-0500 Body weight 63.5 kg Lorie Funes Other [employer] Other 07-24-2021 13:00-0500 SaO2% (BldA) [Mass fraction] 98 % Lorie Funes Other [employer] Other Encounters Encounter Date Encounter Type Care Provider Facility Start: 10-07-2023 Telephone encounter Eleonora Garcia CMA [facility] Start: 10-03-2023 End: 10-03-2023 Evaluation and management of inpatient MILO CHAKRABORTY [facility] Start: 10-02-2023 End: 10-03-2023 Evaluation and management of inpatient LIN TELLO [facility] Start: 09-30-2023 End: 10-01-2023 ambulatory SETH A SIERRA Not Available Start: 09-30-2023 End: 10-01-2023 ambulatory SETH A SIERRA [facility] Start: 09-30-2023 End: 09-30-2023 ambulatory MONET Catrachita RUIZ [facility] Start: 09-30-2023 End: 09-30-2023 Office outpatient visit 15 minutes Monet Ruiz NOVELT[employer] SALES REPRESENTATIVE-SHOVEL OPERATOR Work Phone: [facility] Comment on above: Abdominal bloating ( Primary Dx); Generalized abdominal pain Start: 09-23-2023 Telephone encounter Amy Browning [facility] Start: 09-15-2023 Orders Only Lin baumann DO Work Phone: [facility] Comment on above: Abdominal bloating ( Primary Dx); Epigastric pain Start: 09-12-2023 End: 09-12-2023 Evaluation and management of inpatient MILO CHAKRABORTY [facility] Start: 09-11-2023 End: 09-12-2023 Evaluation and management of inpatient LIN TELLO [facility] Start: 09-05-2023 End: 09-05-2023 ambulatory [facility] Start: 09-05-2023 End: 09-05-2023 Office outpatient visit 25 minutes Sylvia Myers MD Work Phone: [facility] Comment on above: Other chest pain (Pr imary Dx); Myopericarditis; Palpitations; BMI 23.0-23.9, adult; Anxiety; Never smoked any substance Start: 09-04-2023 End: 09-04-2023 ambulatory [facility] Pat Phone Call Provider 1 [facility] - Pre Admit Start: 08-20-2023 End: 08-20-2023 ambulatory [facility] Catrachita RUIZ [facility] Start: 08-20-2023 End: 08-20-2023 Office outpatient new 30 minutes [facility] NOVELTIES SALES REPRESENTATIVE-SHOVEL OPERATOR Work Phone: [facility] Comment on above: Abdominal bloating ( Primary Dx); Nausea in adult; Gastroesophageal reflux disease, unspecified whether esophagitis present; Epigastric pain Start: 08-07-2023 End: 08-07-2023 ambulatory BHAVIN DODD [facility] Start: 08-07-2023 End: 08-07-2023 Office outpatient visit 15 minutes Bhavin Dodd PA Work Phone: [facility] Comment on above: Bilateral occipital neuralgia (Primary Dx) Start: 06-05-2023 End: 06-06-2023 ambulatory [facility] Start: 06-05-2023 End: 06-05-2023 Subsequent hospital visit by physician Dutch Osuna [facility] Comment on above: Palpitations Start: 04-11-[address] Irma Toledo Facility: Start: 03-27-[address] Sylvia Myers Facility:[id number] Start: 03-27-[address] Irma Toledo Facility:[id number] Start: 03-26-[address] Irma Toledo Facility:[id number] Start: 03-26-2023 End: 03-27-2023 ambulatory Irma Yoder Facility:[facility] Start: 03-26-[address] Irma Toledo Facility:[id number] Start: 03-23-2023 End: 03-23-2023 ambulatory Eleonora Santos Other [employer] Other Start: 03-23-2023 Office outpatient visit 15 minutes Eleonora Santos [facility] Start: 11-13-2022 End: 11-13-[address] LALITA MCCRAY . Facility:[facility] Start: 11-12-2022 End: 11-12-2022 ambulatory Jose Casey Other [employer] Other Start: 11-12-2022 Office outpatient visit 15 minutes Jose Casey [facility] Start: 11-04-2022 End: 11-04-2022 ambulatory Vikash Carmona Other [employer] Other Start: 11-04-2022 Telephone encounter Vikash Vega [facility] Start: 10-31-2022 End: 10-31-2022 ambulatory Vikash Carmona Other [employer] Other Start: 10-31-2022 Telephone encounter Vikash Vega [facility] Start: 10-30-2022 End: 10-30-2022 ambulatory Vikash Carmona Other [employer] Other Start: 10-30-2022 Telephone encounter Vikash Vega [facility]enter[facility] Start: 10-17-2022 End: 10-17-2022 ambulatory Vikash Carmona Other [employer] Other Start: 10-17-2022 Telephone encounter Vikash BRODERICK [facility] Start: 09-24-2022 End: 09-24-2022 ambulatory Irma Toledo Facility:[facility] Start: 09-24-2022 End: 09-24-2022 Admission to same day surgery center MD Irma Toledo Work Phone: [facility] Work Phone: Start: 09-24-2022 End: 09-24-2022 ambulatory MD Irma Toledo Work Phone: [facility] Work Phone: Start: 05-02-2022 End: 05-02-[address] IRMA TOLEDO Facility: Start: 04-25-2022 End: 04-25-2022 ambulatory Vikash Dilanacorky Other [employer] Other Start: 04-25-2022 Telephone encounter Vikash BRODERICK [facility] Start: 04-08-2022 End: 04-08-2022 ambulatory Vikash Carmona Other [employer] Other Start: 04-08-2022 [facility] visit new patient Vikash Carmona [facility] Start: 03-03-2022 End: 03-03-2022 ambulatory Carla Palafox Other [employer] Other Start: 03-03-2022 Office outpatient visit 15 minutes Carla Palafox [facility] Start: 11-12-2021 End: 11-12-2021 ambulatory Haley Wilhelm Other [employer] Other Start: 11-12-2021 Office outpatient visit 15 minutes Haley Wilhelm [facility] Start: 10-11-2021 End: 10-11-2021 ambulatory Haley Wilhelm Other [employer] Other Start: 10-11-2021 Office outpatient visit 15 minutes Haley Wilhelm [facility] Start: 09-06-2021 End: 09-06-2021 ambulatory Ama Schrader Other [employer] Other Start: 09-06-2021 Office outpatient visit 15 minutes Ama Schrader [facility] Start: 07-24-2021 End: 07-24-2021 ambulatory Lorie Funes Other [employer] Other Start: 07-24-2021 Office outpatient visit 15 minutes Lorie Funes [facility] Start: 11-24-2018 End: 11-25-2018 Patient encounter procedure KASSANDRA LORD [facility] Start: 11-20-2018 End: 11-24-2018 Patient encounter procedure MADALYN Thayer ARYAN [facility] Start: 09-24-2018 End: 09-24-2018 Patient encounter procedure KASSANDRA LORD [facility] Start: 10-14-2017 End: 10-15-2017 [facility]ulatory [facility] Procedures Date Procedure Procedure Detail Performing Clinician Start: 09-05-2023 ECG 12-LEAD SYLVIA MYERS Start: 09-05-2023 Ecg routine ecg w/least 12 lds w/i&r Sylvia Myers MD Work Phone: Start: 06-05-2023 [facility] EVENT SPECIAL EVENTS FUNDRAISER SYLVIA MYERS Start: 06-05-2023 Xtrnl pt activtd ecg dwnld w/r&i 30 days Sylvia Myers MD Work Phone: Start: 09-24-2022 Esophagogastroduodenoscopy MD Irma guerra Work Phone: Plan of Treatment Date Care Activity Detail Author Start: 2038 Zoster Vaccines (1 of 2) Zoster Vaccines (1 of 2) [facility] Start: 10-02-2024 Adult BMI Screening Adult BMI Screening [facility] Start: 10-02-2024 Tobacco Screening Tobacco Screening [facility] Start: 09-30-2024 Adult BMI Screening Adult BMI Screening [facility] Start: 09-30-2024 Tobacco Screening Tobacco Screening [facility] Start: 09-11-2024 Adult BMI Screening Adult BMI Screening [facility] Start: 09-11-2024 Tobacco Screening Tobacco Screening [facility] Start: 08-26-2024 Tobacco Screening Tobacco Screening [facility] Start: 08-20-2024 Adult BMI Screening Adult BMI Screening [facility] Start: 08-20-2024 Tobacco Screening Tobacco Screening [facility] Start: 08-07-2024 Adult BMI Screening Adult BMI Screening [facility] Start: 08-07-2024 Tobacco Screening Tobacco Screening [facility] Start: 03-12-2024 End: 03-12-2024 Patient encounter procedure 03/12/2024 10:10 AM EDT Of fice Visit [facility] [address] [facility] [address] [place] [address] Sylvia Myers MD [address] [facility] [address] [place] [address] [facility] Start: 10-02-2023 End: 10-02-2023 Admission to same day surgery center 10/02/2023 10:45 AM EST - 10/02/2023 11:15 AM EST Surgery [facility] Surgery [address] [place] [phone] Lin Tello DO [address] [place] [id number] COLONOSCOPY DIAGNOSTIC / SCREENING [92960 (CPT )] [facility] Surgery Comment on above: COLONOSCOPY DIAGNOSTIC / SCREENING [4537 8 (CPT )] Start: 10-02-2023 End: 10-02-2023 Anesthesia consultation 10/02/2023 10:45 AM EST Anesthesia Event [facility] Surgery [address] [place] [phone] Milo Chakraborty, DO [address] [place] [address] [facility] Surgery Start: 10-02-2023 End: 10-02-2023 Colonoscopy flx dx w/collj spec when pfrmd COLONOSCOPY DIAGNOSTIC / SCREENING abdominal bloating 10/02/2023 10:45 AM [facility] Start: 10-02-2023 Subsequent hospital visit by physician 10/02/2023 10:45 AM EST Hospital Encounter [facility] Surgery [address] [place] [phone] Lin Tello, DO [address] [place] [address] [facility] Start: 09-25-2023 End: 09-25-2023 ambulatory 09/25/2023 1:40 PM EST Suppo rt Visit [facility] - Pre Admit [address] [place] [id number] [facility] Pre Admit Start: 09-11-2023 End: 09-11-2023 Admission to same day surgery center 09/11/2023 9:30 AM EST - 09/11/2023 10:00 AM EST Surgery [facility] Surgery [address] [place] [phone] Lin Tello, DO [address] [place] [address] ESOPHAGOGASTRODUODENOSCOPY DIAGNOSTIC [79051 (CPT )] [facility] Comment on above: ESOPHAGOGASTRODUODENOSCOPY DIAGNOSTIC [4 3235 (CPT )] Start: 09-11-2023 End: 09-11-2023 Anesthesia consultation 09/11/2023 9:30 AM EST Anesthesia Event [facility] Surgery [address] [place] [phone] Milo Chakraborty, DO [address] [place] [address] [facility] Start: 09-11-2023 End: 09-11-2023 Esophagogastroduodenoscopy transoral diagnostic ESOPHAGOGASTRODUODENOSCOPY DIAGNOSTIC gastroesophageal reflux, nausea, epigastric pain 09/11/2023 9:30 AM [facility] Start: 09-11-2023 Subsequent hospital visit by physician 09/11/2023 9:30 AM EST Hospital Encounter [facility] [address] [place] [phone] Lin Tello, DO [address] [place] [address] [facility] Start: 09-05-2023 End: 09-05-2023 Patient encounter procedure 09/05/2023 10:50 AM EST Of fice Visit [facility] [address] [phone] Sylvia Myers MD [address] [facility] [address] [place] [address] [facility] Start: 09-04-2023 End: 09-04-2023 ambulatory 09/04/2023 3:00 PM EST Suppo rt Visit [facility] - Pre Admit [address] [place] [phone] [facility] Pre Admit Start: 04-11-2023 COVID-19 Vaccine ( season) COVID-19 Vaccine ( season) [facility] Start: 04-11-2023 Influenza vaccination [facility] Start: 09-24-2022 [facility] Start: 02-23-2021 COVID-19 Vaccine (2 - Pfizer risk series) COVID-19 Vaccine (2 - Pfizer risk series) [facility] Start: 03-05-2011 DTaP,Tdap and Td Vaccines (6 - Tdap) DTaP,Tdap and Td Vaccines (6 - Tdap) [facility] Start: 03-05-2011 DTaP/Tdap/Td Vaccines (6 - Tdap) DTaP/Tdap/Td Vaccines (6 - Tdap) [facility] Start: 2009 Screening for malignant neoplasm of cervix [facility] Start: 2006 Hepatitis C screening Hepatitis C Screening [facility] Start: 04-02-2001 Varicella vaccination Varicella Vaccines (1 of 2 - 2-dose childhood series) [facility] Start: 2000 Depression Screening Depression Screening [facility] Start: 1988 Hepatitis B Vaccines (1 of 3 - 3-dose series) Hepatitis B Vaccines (1 of 3 - 3-dose series) [facility] Start: 1988 HIV screening HIV Screening [facility] Start: 1988 Lipid panel Lipid Panel [facility] Start: 1988 Yearly Adult Physical Yearly Adult Physical [facility] End: 09-14-2024 Colonoscopy Colonoscopy GI Routine Abdominal bloating Epigastric pain 1 Occurrences starting 09/15/2023 until 09/14/2024 [employer] Work Phone: Comment on above: 1 Occurrences starting 09/15/2023 until 09/14/2024 End: 08-20-2024 Esophagogastroduodenoscopy EGD GI Routine Nausea in ad ult Gastroesophageal reflux disease, unspecified whether esophagitis present Epigastric pain 1 Occurrences starting 08/20/2023 until 08/20/2024 [employer] Work Phone: Comment on above: 1 Occurrences starting 08/20/2023 until 08/20/2024 INJECTION BLOCK NERVE INJECTION BLOCK NERVE Bilateral occipital neuralgia [facility] Payers Date Payer Category Payer Self-pay [id number] 2020 Private Health Insurance [id number] 1988 Unknown [id number] 2.16.84 0.1.385552.3.579.2.593 1988 Unknown [id number] 2.16.84 0.1.319757.3.579.2.593 1988 Unknown [id number] 2.16. 840.1.832722.3.579.2.356 1988 Unknown [id number] 2.16. 840.1.103111.3.579.2.356 1988 Unknown [id number] 2.16. 840.1.122872.3.579.2.356 1988 Unknown [id number] 2.16. 840.1.842622.3.579.2.356 1988 Unknown [id number] 2.16. 840.1.467085.3.579.2.356 1988 Unknown [id number] 2.16.84 0.1.427859.3.579.2.1245 1988 Unknown [id number] 2.16.8 40.1.035991.3.579.2.1244 1988 Unknown [id number] 2.16.8 40.1.084313.3.579.2.1286 1988 Unknown [id number] 2.16.84 0.1.767423.3.579.2.1286 1988 Unknown [id number] 2.16.84 0.1.895259.3.579.2.1259 1988 Unknown [id number] 2.16.8 40.1.589783.3.579.2.1286 1988 Unknown [id number] 2.16.8 40.1.030916.3.579.2.6 1988 Unknown [id number] 2.16.8 40.1.379620.3.579.2.6 1988 Unknown [id number] 2.16.8 40.1.363849.3.579.2.1285 1988 Unknown [id number] 2.16.8 40.1.475243.3.579.2.1285 1988 Unknown [id number] 2.16.8 40.1.558868.3.579.2.1285 1988 Unknown [id number] 2.16.8 40.1.106350.3.579.2.1285 1988 Unknown [id number] 2.16.8 40.1.242655.3.579.2.1285 1988 Unknown [id number] 2.16.8 40.1.624189.3.579.2.1285 1988 Unknown [id number] 2.16.8 40.1.581227.3.579.2.1285 1988 Unknown [id number] 2.16.8 40.1.663154.3.579.2.1285 1988 Unknown [id number] 2.16.84 0.1.981209.3.579.2.1286 1959 Unknown [id number] 1959 Unknown [id number] Unknown [id number] 2.16.8 40.1.746448.3.579.2.531 Unknown [id number] 2.16.8 40.1.124413.3.579.2.531 Social History Date Type Detail Facility Unknown if ever smoked [employer] Other Start: 09-21-2020 End: 08-07-2023 [facility] Start: 09-24-2022 End: 11-19-2022 Tobacco smoking status NHIS Never smoked tobacco (finding) [facility] Start: 1988 Sex Assigned At Female [facility] Tobacco smoking stat us NHIS Tobacco smoking consumption unknown [facility] Work Phone: Start: 1988 Sex Assigned At Not on file [facility] Work Phone: Start: 11-19-2022 End: 09-05-2023 Tobacco use and exposure Smokeless tobacco non-user [facility] Start: 08-07-2023 End: 10-03-2023 Alcohol intake Current drinker of alcohol (finding) [facility] Start: 09-21-2020 End: 08-07-2023 History of Social function [facility] Adolescent depressio n screening assessment 0 [facility] Start: 02-02-2021 Alcohol Comment rarely [facility] Start: 09-05-2023 Alcohol Comment rare [facility] Work Phone: Start: 08-26-2023 End: 09-05-2023 Exposure to SARS-CoV-2 (event) Not sure [facility] Goals Date Patient Goal Desired Activity /State Clinical Notes 07-24-2021 to 10-07-2023 Telephone Encounter - Eleonora Garcia CMA - 10/07/2023 11:31 AM ESTTelephone Encounter - Eleonora Garcia, [facility] - 10/07/2023 11:31 AM ESTTelephone Encounter - Eleonora Garcia CMA - 10/07/2023 11:31 AM EST Note Date & Type Note Facility 10-07-2023 Miscellaneous Notes ----- Message from Lin Tello DO sent at 10/07/2023 7:07 AM EST ----- Please let her know that all biopsies were completely negative. She may follow up p.r.n.. ThanksDr. Vgea Spoke with patient regarding pathology results. Patient verbally understood. Patient did have a question regarding allergic reactions to omeprazole but was consulted by her PCP and Pharmacist. Recall will be put into chart. documented in this encounter [facility] 10-07-2023 Telephone encounter Note ----- Message from Lin Tello DO sent at 10/07/2023 7:07 AM EST ----- Please let her know that all biopsies were completely negative. She may follow up p.r.n.. ThanksDr. Vega [facility] 10-07-2023 Telephone encounter Note Spoke with patient regarding pathology results. Patient verbally understood. Patient did have a question regarding allergic reactions to omeprazole but was consulted by her PCP and Pharmacist. Recall will be put into chart. [facility] 09-30-2023 History of Present illness Narrative Images from the original note were not included. Chief Complaint: Abdominal bloating History of Present Illness Erika Downey is a 33 y.o. female who presents to the office for abdominal bloating. She started having several GI issues back in June and thought she had an ulcer. She reports abdominal pain and does not eat much because of it. CT scan and abdominal ultrasound were negative. She had an EGD 09/11/2023 that revealed chronic gastritis and esophagitis. She feels as if her throat has been tight since the EGD, but her symptoms are improving. She has been taking omeprazole 20 mg twice daily. She stopped her Carafate but then restarted it. She states over the weekend she ate something that flared up her symptoms. She is scheduled for colonoscopy in 2 days. Review of Systems Constitutional: Negative for fever and unexpected weight change. HENT: Positive for sore throat. Negative for trouble swallowing. Respiratory: Negative for shortness of breath. Cardiovascular: Negative for chest pain. Gastrointestinal: Positive for abdominal pain. Negative for nausea, vomiting, diarrhea, constipation, blood in stool and black tarry stool. Abdominal bloating Genitourinary: Negative for dysuria and difficulty urinating. Musculoskeletal: Negative for gait problem. Skin: Negative for rash and wound. Neurological: Negative for dizziness, weakness and light-headedness. Hematological: Does not bruise/bleed easily. Psychiatric/Behavioral: Negative for confusion. Past Medical History: Diagnosis Date Back pain Bilateral occipital neuralgia 10/20/2017 Chronic pain disorder Depression GERD (gastroesophageal reflux disease) Headache Low back pain Neck pain Visual impairment Past Surgical History: Procedure Laterality Date BACK SURGERY 10/2014 for herniated disc BILATERAL INJECTION BLOCK NERVE OCCIPITAL Bilateral 10/24/2017 Performed by Harsh Gallego MD at [facility]GERY 03/2023 catherization ESOPHAGOGASTRODUODENOSCOPY DIAGNOSTIC N/A 09/11/2023 Performed by Lin Tello DO at [facility] INJECTION BLOCK NERVE Bilat Occipital Bilateral 06/22/2021 Performed by Harsh Gallego MD at [facility] INJECTION BLOCK NERVE MEDIAL BRANCH: right L 4/5 5/1 Right 08/24/2021 Performed by Harsh Gallego MD at [facility] INJECTION BLOCK NERVE MEDIAL BRANCH: right L 4/5 5/1 Right 04/12/2022 Performed by Harsh Gallego MD at [facility] INJECTION BLOCK NERVE MEDIAL BRANCH: bilat L45 51 Bilateral 06/20/2023 Performed by Harsh Gallego MD at [facility] INJECTION BLOCK NERVE OCCIPITAL Bilateral 05/26/2020 Performed by Harsh Gallego MD at [facility] INJECTION BLOCK NERVE OCCIPITAL Bilateral 03/24/2020 Performed by Harsh Gallego MD at [facility] INJECTION BLOCK NERVE OCCIPITAL Bilateral 11/27/2018 Performed by Harsh Gallego MD at [facility] INJECTION BLOCK NERVE OCCIPITAL: bilat Bilateral 04/10/2018 Performed by Harsh Gallego MD at [facility] INJECTION BLOCK NERVE OCCIPITAL: bilat Bilateral 12/19/2017 Performed by Harsh Gallego MD at [facility] INJECTION BLOCK NERVE: bilat occipital Bilateral 05/10/2022 Performed by Harsh Gallego MD at [facility] INJECTION BLOCK SACROILIAC JOINT Bilateral 12/06/2022 Performed by Harsh Gallego MD at [facility] INJECTION MEDIAL BRANCH NERVE BLOCK BILATERAL C2/3,3/4 Bilateral 11/28/2017 Performed by Harsh Gallego MD at [facility] MOLE REMOVAL 10/14/2017 NASAL SURGERY TRANSUMBILICAL AUGMENTATION MAMMAPLASTY 2012 WISDOM TOOTH EXTRACTION 2004, 2013, 2017 Allergies Allergen Reactions Covid-19 Vacc,Mrna(Pfizer)(Pf) Anaphylaxis Throat tightness Iodinated Contrast Media Nausea Can have if given bendryl Pregabalin Dizziness Current Outpatient Medications: AJOVY AUTOINJECTOR 225 mg/1.5 mL auto-injector, Inject 1.5 mL (225 mg total) under the skin every 30 (thirty) days., Disp: , Rfl: lzaszuxrfsrqnko-[id number] (REFRESH OPTIVE ADVANCED) 0.5-1-0.5 % drops, Administer 1 drop to both eyes in the morning., Disp: , Rfl: chlorhexidine (PERIDEX) 0.12 % solution, Apply 15 mL to the mouth or throat 2 (two) times a day as needed for wound care., Disp: , Rfl: cyclobenzaprine (FLEXERIL) 5 mg tablet, Take 1 tablet (5 mg total) by mouth daily as needed for muscle spasms., Disp: 30 tablet, Rfl: 3 cycloSPORINE (RESTASIS) 0.05 % ophthalmic emulsion, Administer 1 drop to both eyes every 12 (twelve) hours., Disp: , Rfl: diphenhydrAMINE (BENADRYL) 25 mg capsule, Take 1 capsule (25 mg total) by mouth every 6 (six) hours as needed for itching for up to 10 doses., Disp: 10 capsule, Rfl: 0 fluocinonide (LIDEX) 0.05 % external solution, Apply 1 Application topically 2 (two) times a day as needed., Disp: , Rfl: fluticasone propionate (FLONASE) 50 mcg/actuation nasal spray, , Disp: , Rfl: NORTREL 1/35, 28, 1-35 mg-mcg per tablet, Take 1 tablet by mouth in the morning., Disp: , Rfl: 11 omeprazole (PriLOSEC) 20 mg capsule, Take 2 capsules (40 mg total) by mouth every morning before breakfast., Disp: , Rfl: sodium,potassium,mag sulfates (SUPREP BOWEL PREP KIT) 17.5-3.13-1.6 gram recon soln, Take 177 mL by mouth in the morning and 177 mL before bedtime., Disp: 177 mL, Rfl: 1 sucralfate (CARAFATE) 1 gram tablet, Take 1 tablet (1 g total) by mouth 3 (three) times a day., Disp: , Rfl: valACYclovir (VALTREX) 500 mg tablet, Take 1 tablet (500 mg total) by mouth as needed., Disp: , Rfl: 5 clotrimazole-betamethasone (LOTRISONE) cream, Apply 1 application topically 2 (two) times a day. Apply to external auditory canals (Patient not taking: Reported on 09/30/2023), Disp: 30 g, Rfl: 1 sod sulf-pot chloride-mag sulf 1.479-0.188- 0.225 gram tablet, Please see instructional sheet given by physicians office., Disp: 24 tablet, Rfl: 0 Social History Socioeconomic History Marital status: Single Spouse name: Not on file Number of children: Not on file Years of education: Not on file Highest education level: Not on file Occupational History Not on file Tobacco Use Smoking status: Never Smokeless tobacco: Never Vaping Use Vaping Use: Never used Substance and Sexual Activity Alcohol use: Yes Comment: rarely Drug use: No Sexual activity: Not Currently Other Topics Concern Not on file Social History Narrative Not on file Social Determinants of Health Financial Resource Strain: Not on file Food Insecurity: No Food Insecurity (08/20/2023) Hunger Screening Food Insecurity - Worry: Never True Food Insecurity - Inability: Never True Transportation Needs: Not on file Physical Activity: Not on file Stress: Not on file Social Connections: Not on file Interpersonal Safety: Not on file Housing Instability: Not on file Family History Problem Relation Age of Onset No Known Problems Mother Heart disease Father Objective Physical Exam Constitutional: General: She is not in acute distress. Appearance: Normal appearance. She is not ill-appearing. HENT: Head: Normocephalic and atraumatic. Mouth/Throat: Mouth: Mucous membranes are moist. Eyes: Pupils: Pupils are equal, round, and reactive to light. Cardiovascular: Rate and Rhythm: Normal rate. Pulmonary: Effort: Pulmonary effort is normal. No respiratory distress. Abdominal: General: There is no distension. Palpations: Abdomen is soft. Musculoskeletal: General: Normal range of motion. Skin: General: Skin is warm and dry. Neurological: Mental Status: She is alert and oriented to person, place, and time. Mental status is at baseline. Vital Signs: Blood pressure 134/74, height 160 cm (5' 3 ), weight 61.2 kg (135 lb), last menstrual period 08/28/2023, not currently . Respiratory Source: No data recorded Admission Weight: Weight: 61.2 kg (135 lb) Labs Lab Results Component Value Date WBC 10.4 04/25/2023 HGB 14.7 04/25/2023 HCT 43.0 04/25/2023 MCV 87 04/25/2023 PLT 297 04/25/2023 Lab Results Component Value Date GLU 93 04/25/2023 CALCIUM 9.1 04/25/2023 K 4.0 04/25/2023 CO2 21 (L) 04/25/2023 CL 105 04/25/2023 BUN 8 04/25/2023 CREATININE 0.61 04/25/2023 No results found for: AMYLASE No results found for: LIPASE Lab Results Component Value Date ALT 21 01/26/2018 AST 23 01/26/2018 ALKPHOS 47 01/26/2018 Lab Results Component Value Date INR 1.0 04/25/2023 INR 1.0 01/26/2018 PROTIME 11.5 04/25/2023 PROTIME 11.0 01/26/2018 Assessment Erika Downey is a 33 y.o.female with abdominal bloating and abdominal pain. Plan Discussed EGD results and final pathology with patient. If she is still having symptoms she may double her omeprazole to 40 mg twice daily and see if this helps. Colonoscopy scheduled 10/02/2023. Discussed bowel prep with patient in office today. Evaluation included: Preparing to see the patient (e.g., review of tests) Obtaining and/or reviewing separately obtained history Performing a medically appropriate examination and/or evaluation Counseling and educating the patient/family/caregiver Referring and communicating with other health complex care nurse practitioner Abdominal bloating [R14.0] MONET RUIZ, NOVELTIES SALES REPRESENTATIVE-SHOVEL OPERATOR [facility] [place] This note was created with the assistance of a speech recognition program. While intending to generate a timely document that accurately reflects the content of the visit, no guarantee can be provided that every grammatical or spelling mistake has been or will be identified or corrected. Thank you for your understanding. LINDSAY Banda 09/30/23 1244 documented in this encounter [facility] 09-23-2023 Miscellaneous Notes This patient called with concerns after her EGD. She left a voicemail stating that she stopped taking the Carafate that was prescribed, because they didn't find an ulcer when they did the EGD on 09/11/23. She felt like they weren't helping, but she has now re-started them again. I left her a message asking her to call me so I can discuss things & possibly get her on the schedule with our Nurse Practitioner. Erika is scheduled for a Screening Colonoscopy on 10/02/[address] Tello I was unable to answer all of the questions she had. She had am multitude of questions so I Thought it'd be best for her to come in and speak with our Nurse Practitioner, Monet Ruiz CNP. She has her appointment on 09/30/23 documented in this encounter [facility] [facility] 09-23-2023 Telephone encounter Note This patient called with concerns after her EGD. She left a voicemail stating that she stopped taking the Carafate that was prescribed, because they didn't find an ulcer when they did the EGD on 09/11/23. She felt like they weren't helping, but she has now re-started them again. I left her a message asking her to call me so I can discuss things & possibly get her on the schedule with our Nurse Practitioner. Erika is scheduled for a Screening Colonoscopy on 10/02/[address] Tello [facility] 09-23-2023 Telephone encounter Note I was unable to answer all of the questions she had. She had am multitude of questions so I Thought it'd be best for her to come in and speak with our Nurse Practitioner, Monet Ruiz CNP. She has her appointment on 09/30/23 [facility] [employer] 09-05-2023 History of Present illness Narrative Subjective Erika Downey is a 33 y.o. female Chief Complaint Follow-up HPI Patient is here for follow-up continue management for previous evaluation for chest pain and elevated cardiac enzymes consistent with myopericarditis. Her cardiac catheterization showed no coronary artery disease. Echocardiogram showed normal LV systolic function. That has resolved. Patient continues to complain of on and off chest pain, palpitation. She admits to high level of anxiety. We did extensive workup on her including Holter monitor all of it appears reassuring. She is currently going through GI evaluation in addition there is some concern about her breast implant may be causing her some chest pain. Assessment 1. Recent presentation with chest pain and elevated cardiac enzymes felt to be likely a myopericarditis seem to have resolved. Continues to complain of atypical chest pain appears to be anxiety driven. 2. Status post left heart cath with normal coronary artery 3. Patient complains of some minor pain, tingling sensation and swelling of the right hand examination is fairly normal except minor bruising. She had normal range of movement and normal vascular examination. This is completely resolved 4. Anxiety 5. Palpitation her Holter monitor failed to demonstrate any arrhythmia Plan 1. I reassured the patient 2. I reviewed with her the results of her diagnostic testing. 3. I we will see her back in the office in 6 months 4. Patient was asked me if she can use some low-dose beta-blockers and told her it would be okay but in my opinion there is no need for that considering her cardiac workup and Holter monitor was benign Review of Systems Constitutional: Positive for malaise/fatigue. Cardiovascular: Positive for chest pain and palpitations. Neurological: Positive for dizziness. All other systems reviewed and are negative. Visit Vitals BP 118/80 (BP Location: Right arm, Patient Position: Sitting) Pulse 85 Ht 1.6 m (5' 3 ) Wt 60.3 kg (133 lb) BMI 23.56 kg/m Smoking Status Never BSA 1.64 m EKG done in office today Objective Physical Exam Constitutional: Appearance: Normal appearance. She is normal weight. HENT: Nose: Nose normal. Neck: Vascular: No carotid bruit. Cardiovascular: Rate and Rhythm: Normal rate. Pulses: Normal pulses. Heart sounds: Normal heart sounds. Pulmonary: Effort: Pulmonary effort is normal. Abdominal: General: Bowel sounds are normal. Palpations: Abdomen is soft. Genitourinary: Rectum: Normal. Musculoskeletal: General: Normal range of motion. Cervical back: Normal range of motion. Right lower leg: No edema. Left lower leg: No edema. Skin: General: Skin is warm and dry. Neurological: General: No focal deficit present. Mental Status: She is alert. Psychiatric: Mood and Affect: Mood normal. Behavior: Behavior normal. Thought Content: Thought content normal. Judgment: Judgment normal. Current Medications Current Outpatient Medications: Ajovy Autoinjector 225 mg/1.5 mL auto-injector, Inject 1 Pen (225 mg) under the skin every 30 (thirty) days., Disp: , Rfl: [id number] 0.5-1-0.5 % drops, Administer 1 drop into affected eye(s) once daily., Disp: , Rfl: chlorhexidine (Peridex) 0.12 % solution, Use 15 mL in the mouth or throat if needed., Disp: , Rfl: cyclobenzaprine (Flexeril) 10 mg tablet, Take 1 tablet (10 mg) by mouth once daily as needed for muscle spasms., Disp: , Rfl: ibuprofen 800 mg tablet, Take 1 tablet (800 mg) by mouth every 8 hours if needed for moderate pain (4 - 6)., Disp: , Rfl: Nortrel 1/35, 28, 1-35 mg-mcg tablet, Take 1 tablet by mouth once daily., Disp: , Rfl: omeprazole (PriLOSEC) 20 mg tablet,delayed release (DR/EC) EC tablet, Take 1 tablet (20 mg) by mouth once daily in the morning. Take before meals., Disp: , Rfl: sucralfate (Carafate) 1 gram tablet, 1 tablet (1 g) 3 times a day., Disp: , Rfl: Assessment/Plan 1. Other chest pain 2. Myopericarditis 3. Palpitations 4. BMI 23.0-23.9, adult 5. Anxiety 6. Never smoked any substance Scribe Attestation By signing my name below, Ivelisse Smith ROBERT , Scribe attest that this documentation has been prepared under the direction and in the presence of Sylvia Myers MD. documented in this encounter [facility] Work Phone: 09-05-2023 Instructions Sandi Canada CMA - 09/05/2023 10:50 AM EST Please bring all medicines, vitamins, and herbal supplements with you when you come to the office. Prescriptions will not be filled unless you are compliant with your follow up appointments or have a follow up appointment scheduled as per instruction of your physician. Refills should be requested at the time of your visit. documented in this encounter [facility] Work Phone: 09-04-2023 Nurse Note Preoperative Education Checklist- General Surgery date: 09/11/23 Surgery time: 9a Arrival time: 7a 1. Bring a photo ID and your insurance card with you the day of surgery. You will check in at the main lobby of the [facility]- registration desk is straight ahead as soon as you walk in. Tell them you are here for surgery. 2. If you have a Living Will/Durable Power of [employer] for [employer] Care that is not on file here, please bring a copy the day of surgery. 3. Please shower/bathe the night before surgery with the provided soap or wipes. Do not shower the morning of surgery- you will do use wipes when you arrive here at the hospital before getting into your surgical gown. Do not shave the area of your procedure for 2 days prior to your surgery. 4. NO powder, lotion, perfume/cologne, aftershave, make-up, deodorant, or hair products after you have bathed. 5. NO nail fijian/acrylic on at least one finger. If you are having a hand, wrist or foot surgery then all nail fijian and artificial/acrylic nails must be removed from that hand or foot. 6. Avoid ALL Aspirin and non-steroidal anti-inflammatory drugs and certain vitamins (Ibuprofen, Advil, Aleve, Excedrin, Meloxicam, Celebrex, fish/krill oil, etc.) for 7 days prior to surgery as instructed by your surgeon and/or your prescribing doctor. Tylenol IS ALLOWED. If you are on Ticlid, Xarelto, Eliquis, Pradaxa, Plavix or Coumadin, please check with your prescribing doctor for instructions for when to stop them. 7. If you use an inhaler, continue to use it routinely. 8. Nothing to eat or drink (not even water, gum, mints, or hard candy!) AFTER midnight prior to your surgery. 9. Take only medications that you are instructed to on the morning of surgery with a TINY SIP OF WATER. 10. Choose a responsible adult that will be able to drive you home when you are discharged from your hospital stay for your surgery and can stay with you in your home for 24 hours after your procedure. You must NOT drive any vehicle or operate any machinery for 24 hours after surgery. 11. When you dress for your appointment, please wear loose fitting clothing that is appropriate to accommodate your surgical area procedure. BRING WITH YOU ANY DEVICES YOU MAY NEED: HODA hose, ice machine, sling/swath, brace or special shoe, oversized zip-up or button up shirt, CPAP machine if staying overnight. 12. Do NOT wear jewelry, watches, or any piercings or metal for surgery- leave these valuables and money at home. 13. Do NOT wear contact lenses for surgery- glasses are okay if needed. 14. The anesthesiologist will talk with you the day of surgery and will ask you to sign a Consent Form. 15. Refrain from smoking or any type of tobacco use for at least 8 hours and marijuana for 24 hours prior to arrival for your surgery. 16. If a GREEN BLOOD band is given to you, please bring it with you for the day of surgery. 17. Notify your surgeon if you develop any illness before your surgery. 18. If you are staying overnight, please DO NOT BRING your home medications with you. 19. If you have any questions prior to surgery, please call the Preadmission Testing office at [phone], Mon.-Fri. 7 a.m.-3 p.m. Leave a voicemail if needed. Pre-Surgery Instructions: Medication Instructions clotrimazole-betamethasone (LOTRISONE) cream Stop taking 0 days prior to procedure valACYclovir (VALTREX) 500 mg tablet Stop taking 0 days prior to procedure AJOVY AUTOINJECTOR 225 mg/1.5 mL auto-injector Check with prescribing doctor for instructions [id number] (REFRESH OPTIVE ADVANCED) 0.5-1-0.5 % drops Stop taking 0 days prior to procedure chlorhexidine (PERIDEX) 0.12 % solution Stop taking 0 days prior to procedure cyclobenzaprine (FLEXERIL) 5 mg tablet Stop taking 0 days prior to procedure cycloSPORINE (RESTASIS) 0.05 % ophthalmic emulsion Stop taking 0 days prior to procedure diphenhydrAMINE (BENADRYL) 25 mg capsule Stop taking 0 days prior to procedure fluocinonide (LIDEX) 0.05 % external solution Stop taking 0 days prior to procedure fluticasone propionate (FLONASE) 50 mcg/actuation nasal spray Stop taking 0 days prior to procedure NORTREL 1/35, 28, 1-35 mg-mcg per tablet Stop taking 0 days prior to procedure omeprazole (PriLOSEC) 20 mg capsule Stop taking 0 days prior to procedure sucralfate (CARAFATE) 1 gram tablet Stop taking 0 days prior to procedure [facility] 09-04-2023 Miscellaneous Notes Preoperative Education Checklist- General Surgery date: 09/11/23 Surgery time: 9a Arrival time: 7a 1. Bring a photo ID and your insurance card with you the day of surgery. You will check in at the main lobby of the [facility]- registration desk is straight ahead as soon as you walk in. Tell them you are here for surgery. 2. If you have a Living Will/Durable Power of [employer] for Health Care that is not on file here, please bring a copy the day of surgery. 3. Please shower/bathe the night before surgery with the provided soap or wipes. Do not shower the morning of surgery- you will do use wipes when you arrive here at the hospital before getting into your surgical gown. Do not shave the area of your procedure for 2 days prior to your surgery. 4. NO powder, lotion, perfume/cologne, aftershave, make-up, deodorant, or hair products after you have bathed. 5. NO nail fijian/acrylic on at least one finger. If you are having a hand, wrist or foot surgery then all nail fijian and artificial/acrylic nails must be removed from that hand or foot. 6. Avoid ALL Aspirin and non-steroidal anti-inflammatory drugs and certain vitamins (Ibuprofen, Advil, Aleve, Excedrin, Meloxicam, Celebrex, fish/krill oil, etc.) for 7 days prior to surgery as instructed by your surgeon and/or your prescribing doctor. Tylenol IS ALLOWED. If you are on Ticlid, Xarelto, Eliquis, Pradaxa, Plavix or Coumadin, please check with your prescribing doctor for instructions for when to stop them. 7. If you use an inhaler, continue to use it routinely. 8. Nothing to eat or drink (not even water, gum, mints, or hard candy!) AFTER midnight prior to your surgery. 9. Take only medications that you are instructed to on the morning of surgery with a TINY SIP OF WATER. 10. Choose a responsible adult that will be able to drive you home when you are discharged from your hospital stay for your surgery and can stay with you in your home for 24 hours after your procedure. You must NOT drive any vehicle or operate any machinery for 24 hours after surgery. 11. When you dress for your appointment, please wear loose fitting clothing that is appropriate to accommodate your surgical area procedure. BRING WITH YOU ANY DEVICES YOU MAY NEED: HODA hose, ice machine, sling/swath, brace or special shoe, oversized zip-up or button up shirt, CPAP machine if staying overnight. 12. Do NOT wear jewelry, watches, or any piercings or metal for surgery- leave these valuables and money at home. 13. Do NOT wear contact lenses for surgery- glasses are okay if needed. 14. The anesthesiologist will talk with you the day of surgery and will ask you to sign a Consent Form. 15. Refrain from smoking or any type of tobacco use for at least 8 hours and marijuana for 24 hours prior to arrival for your surgery. 16. If a GREEN BLOOD band is given to you, please bring it with you for the day of surgery. 17. Notify your surgeon if you develop any illness before your surgery. 18. If you are staying overnight, please DO NOT BRING your home medications with you. 19. If you have any questions prior to surgery, please call the Preadmission Testing office at [phone], Mon.-Fri. 7 a.m.-3 p.m. Leave a voicemail if needed. Pre-Surgery Instructions: Medication Instructions clotrimazole-betamethasone (LOTRISONE) cream Stop taking 0 days prior to procedure valACYclovir (VALTREX) 500 mg tablet Stop taking 0 days prior to procedure AJOVY AUTOINJECTOR 225 mg/1.5 mL auto-injector Check with prescribing doctor for instructions [id number] (REFRESH OPTIVE ADVANCED) 0.5-1-0.5 % drops Stop taking 0 days prior to procedure chlorhexidine (PERIDEX) 0.12 % solution Stop taking 0 days prior to procedure cyclobenzaprine (FLEXERIL) 5 mg tablet Stop taking 0 days prior to procedure cycloSPORINE (RESTASIS) 0.05 % ophthalmic emulsion Stop taking 0 days prior to procedure diphenhydrAMINE (BENADRYL) 25 mg capsule Stop taking 0 days prior to procedure fluocinonide (LIDEX) 0.05 % external solution Stop taking 0 days prior to procedure fluticasone propionate (FLONASE) 50 mcg/actuation nasal spray Stop taking 0 days prior to procedure NORTREL 1/35, 28, 1-35 mg-mcg per tablet Stop taking 0 days prior to procedure omeprazole (PriLOSEC) 20 mg capsule Stop taking 0 days prior to procedure sucralfate (CARAFATE) 1 gram tablet Stop taking 0 days prior to procedure documented in this encounter [facility] 08-20-2023 History of Present illness Narrative Images from the original note were not included. Chief Complaint: GERD, bloating, nausea, abdominal pain History of Present Illness Erika Downey is a 33 y.o. female who presents to the office with several GI complaints. She states in mid June she started having bad stomach issues including nausea, bloating, heartburn and epigastric pain. Prior to this she was on and off several NSAIDs including ibuprofen, naproxen, meloxicam. Her stomach pain is aggravated by food. She denies any vomiting, diarrhea or black tarry stools. She reports some constipation. She has cut back on her caffeine intake since March. She does not smoke. She drinks alcohol rarely. She has started eating healthier which is helping her symptoms. She states she was looking online and she thinks she has an ulcer. At the end of June she went to the [facility]. She states she had labs and a CT scan that was negative. She has been taking omeprazole 20 mg twice daily and Carafate with some relief. She had an abdominal ultrasound November 2022 that revealed normal gallbladder, liver, pancreas. Review of Systems Constitutional: Negative for fever and unexpected weight change. HENT: Negative for trouble swallowing. Respiratory: Negative for shortness of breath. Cardiovascular: Negative for chest pain and palpitations. Gastrointestinal: Positive for nausea, abdominal pain and constipation. Negative for vomiting, diarrhea, blood in stool and black tarry stool. Heartburn, bloating Genitourinary: Negative for dysuria and difficulty urinating. Musculoskeletal: Negative for joint swelling and gait problem. Skin: Negative for rash and wound. Allergic/Immunologic: Negative for immunocompromised state. Neurological: Negative for dizziness, weakness and light-headedness. Hematological: Does not bruise/bleed easily. Psychiatric/Behavioral: Negative for behavioral problems and confusion. Past Medical History: Diagnosis Date Back pain Bilateral occipital neuralgia 10/20/2017 Chronic pain disorder Depression GERD (gastroesophageal reflux disease) Headache Low back pain Neck pain Past Surgical History: Procedure Laterality Date BACK SURGERY 10/2014 for herniated disc BILATERAL INJECTION BLOCK NERVE OCCIPITAL Bilateral 10/24/2017 Performed by Harsh Gallego MD at [facility] INJECTION BLOCK NERVE Bilat Occipital Bilateral 06/22/2021 Performed by Harsh Gallego MD at [facility] INJECTION BLOCK NERVE MEDIAL BRANCH: right L 4/5 5/1 Right 08/24/2021 Performed by Harsh Gallego MD at [facility] INJECTION BLOCK NERVE MEDIAL BRANCH: right L 4/5 5/1 Right 04/12/2022 Performed by Harsh Gallego MD at [facility] INJECTION BLOCK NERVE MEDIAL BRANCH: bilat L45 51 Bilateral 06/20/2023 Performed by Harsh Gallego MD at [facility] INJECTION BLOCK NERVE OCCIPITAL Bilateral 05/26/2020 Performed by Harsh Gallego MD at [facility] INJECTION BLOCK NERVE OCCIPITAL Bilateral 03/24/2020 Performed by Harsh Gallego MD at [facility] INJECTION BLOCK NERVE OCCIPITAL Bilateral 11/27/2018 Performed by Harsh Gallego MD at [facility] INJECTION BLOCK NERVE OCCIPITAL: bilat Bilateral 04/10/2018 Performed by Harsh Gallego MD at [facility] INJECTION BLOCK NERVE OCCIPITAL: bilat Bilateral 12/19/2017 Performed by Harsh Gallego MD at [facility] INJECTION BLOCK NERVE: bilat occipital Bilateral 05/10/2022 Performed by Harsh Gallego MD at [facility] INJECTION BLOCK SACROILIAC JOINT Bilateral 12/06/2022 Performed by Harsh Gallego MD at [facility] INJECTION MEDIAL BRANCH NERVE BLOCK BILATERAL C2/3,3/4 Bilateral 11/28/2017 Performed by Harsh Gallego MD at [facility] MOLE REMOVAL 10/14/2017 NASAL SURGERY TRANSUMBILICAL AUGMENTATION MAMMAPLASTY 2012 WISDOM TOOTH EXTRACTION 2004, 2013, 2017 Allergies Allergen Reactions Covid-19 Vacc,Mrna(Pfizer)(Pf) Anaphylaxis Throat tightness Iodinated Contrast Media Nausea Can have if given bendryl Pregabalin Dizziness Current Outpatient Medications: AJOVY AUTOINJECTOR 225 mg/1.5 mL auto-injector, , Disp: , Rfl: [id number] (REFRESH OPTIVE ADVANCED) 0.5-1-0.5 % drops, Administer 1 drop to both eyes in the morning., Disp: , Rfl: chlorhexidine (PERIDEX) 0.12 % solution, Apply 15 mL to the mouth or throat 2 (two) times a day as needed for wound care., Disp: , Rfl: cyclobenzaprine (FLEXERIL) 5 mg tablet, Take 1 tablet (5 mg total) by mouth daily as needed for muscle spasms., Disp: 30 tablet, Rfl: 3 cycloSPORINE (RESTASIS) 0.05 % ophthalmic emulsion, , Disp: , Rfl: diphenhydrAMINE (BENADRYL) 25 mg capsule, Take 1 capsule (25 mg total) by mouth every 6 (six) hours as needed for itching for up to 10 doses., Disp: 10 capsule, Rfl: 0 fluocinonide (LIDEX) 0.05 % external solution, Apply 1 Application topically 2 (two) times a day as needed., Disp: , Rfl: NORTREL 1/35, 28, 1-35 mg-mcg per tablet, Take 1 tablet by mouth in the morning., Disp: , Rfl: 11 omeprazole (PriLOSEC) 20 mg capsule, Take 2 capsules (40 mg total) by mouth every morning before breakfast., Disp: , Rfl: sucralfate (CARAFATE) 1 gram tablet, Take 1 tablet (1 g total) by mouth 3 (three) times a day., Disp: , Rfl: clotrimazole-betamethasone (LOTRISONE) cream, Apply 1 application topically 2 (two) times a day. Apply to external auditory canals (Patient not taking: Reported on 08/20/2023), Disp: 30 g, Rfl: 1 fluticasone propionate (FLONASE) 50 mcg/actuation nasal spray, SHAKE LIQUID AND USE 2 SPRAYS IN EACH NOSTRIL DAILY (Patient not taking: Reported on 08/20/2023), Disp: , Rfl: mometasone (ELOCON) 0.1 % ointment, Apply 1 application topically daily. (Patient not taking: Reported on 12/24/2022), Disp: 45 g, Rfl: 0 triamcinolone (KENALOG) 0.025 % ointment, Apply 1 application topically 2 (two) times a day. (Patient not taking: Reported on 12/24/2022), Disp: 30 g, Rfl: 0 triamcinolone (KENALOG) 0.5 % cream, Apply 1 application topically 3 (three) times a day. (Patient not taking: Reported on 12/24/2022), Disp: 30 g, Rfl: 0 valACYclovir (VALTREX) 500 mg tablet, Take 1 tablet (500 mg total) by mouth in the morning. (Patient not taking: Reported on 12/24/2022), Disp: , Rfl: 5 Social History Socioeconomic History Marital status: Single Spouse name: Not on file Number of children: Not on file Years of education: Not on file Highest education level: Not on file Occupational History Not on file Tobacco Use Smoking status: Never Smokeless tobacco: Never Vaping Use Vaping Use: Never used Substance and Sexual Activity Alcohol use: Yes Comment: rarely Drug use: No Sexual activity: Not Currently Other Topics Concern Not on file Social History Narrative Not on file Social Determinants of Health Financial Resource Strain: Not on file Food Insecurity: No Food Insecurity (08/20/2023) Hunger Screening Food Insecurity - Worry: Never True Food Insecurity - Inability: Never True Transportation Needs: Not on file Physical Activity: Not on file Stress: Not on file Social Connections: Not on file Interpersonal Safety: Not on file Family History Problem Relation Age of Onset No Known Problems Mother Heart disease Father Objective Physical Exam Constitutional: Appearance: Normal appearance. HENT: Head: Normocephalic and atraumatic. Mouth/Throat: Mouth: Mucous membranes are moist. Eyes: Pupils: Pupils are equal, round, and reactive to light. Cardiovascular: Rate and Rhythm: Normal rate and regular rhythm. Pulmonary: Effort: Pulmonary effort is normal. No respiratory distress. Abdominal: General: Bowel sounds are normal. There is no distension. Palpations: Abdomen is soft. Tenderness: There is abdominal tenderness. There is no guarding. Comments: Patient states she has always had tenderness under her ribs Musculoskeletal: General: Normal range of motion. Cervical back: Normal range of motion. Skin: General: Skin is warm and dry. Neurological: Mental Status: She is alert and oriented to person, place, and time. Mental status is at baseline. Vital Signs: Blood pressure (!) 137/94, pulse 90, height 160 cm (5' 3 ), weight 61.2 kg (135 lb), not currently . Respiratory Source: No data recorded Admission Weight: Weight: 61.2 kg (135 lb) Labs Lab Results Component Value Date WBC 10.4 04/25/2023 HGB 14.7 04/25/2023 HCT 43.0 04/25/2023 MCV 87 04/25/2023 PLT 297 04/25/2023 Lab Results Component Value Date GLU 93 04/25/2023 CALCIUM 9.1 04/25/2023 K 4.0 04/25/2023 CO2 21 (L) 04/25/2023 CL 105 04/25/2023 BUN 8 04/25/2023 CREATININE 0.61 04/25/2023 No results found for: AMYLASE No results found for: LIPASE Lab Results Component Value Date ALT 21 01/26/2018 AST 23 01/26/2018 ALKPHOS 47 01/26/2018 Lab Results Component Value Date INR 1.0 04/25/2023 INR 1.0 01/26/2018 PROTIME 11.5 04/25/2023 PROTIME 11.0 01/26/[address] abdomen and pelvis from 10/11/2022: Findings: The lung bases are clear . Bilateral breast implants. The liver, spleen and pancreas are normal in size, configuration and attenuation. No focal masses are identified in the precontrast examination. The gallbladder is normal. There is no evidence of biliary ductal dilatation. The adrenal glands are normal. Both kidneys are normal in size, configuration and position. There is no evidence of calcified urinary calculi, hydronephrosis or perinephric stranding. The urinary bladder is unremarkable. Uterus is anteverted. There is no evidence of adnexal mass or free fluid in the pelvis. The bowel gas pattern is nonobstructive. The appendix is normal. No evidence of intra-abdominal mass, retroperitoneal lymphadenopathy or ascites. There is a levoscoliosis in the thoracolumbar spine. IMPRESSION: 1. No evidence of urinary calculi, hydronephrosis or perinephric stranding. 2. Appendix is normal. Bowel gas pattern is nonobstructive. 3. No evidence of acute intra-abdominal and intrapelvic pathology. Abdominal ultrasound from 11/15/2022: Findings: The gallbladder appears normal with no evidence of calculi or other imaging abnormalities and no tenderness localizable to the gallbladder during scanning. There is no intra-or extrahepatic biliary dilatation. The liver displays no abnormalities in the portions depicted. The pancreas is fairly well seen in its entirety with no abnormalities demonstrated. On scanning of the right upper quadrant no hydronephrosis or other gross abnormalities of the right kidney are displayed. IMPRESSION: Normal ultrasound of the gallbladder, pancreas, and biliary tree Assessment Epigastric pain Heartburn Bloating Nausea Recent NSAID use Plan EGD with possible biopsy rule out H pylori, gastritis, ulcer. Risks, benefits, and alternatives discussed with patient. Patient verbalizes understanding and wishes to proceed. Stop all NSAIDs. Avoid caffeine. Abdominal bloating could be due to constipation, recommend 64 oz of water daily, healthy/high-fiber diet, MiraLax p.r.n., may trial Gas-X OTC. Evaluation included: Preparing to see the patient (e.g., review of tests) Obtaining and/or reviewing separately obtained history Performing a medically appropriate examination and/or evaluation Counseling and educating the patient/family/caregiver Referring and communicating with other health complex care nurse practitioner Abdominal bloating [R14.0] LINDSAY BANDA [facility] [place] This note was created with the assistance of a speech recognition program. While intending to generate a timely document that accurately reflects the content of the visit, no guarantee can be provided that every grammatical or spelling mistake has been or will be identified or corrected. Thank you for your understanding. LINDSAY Banda 08/20/23 1124 documented in this encounter [facility] 08-07-2023 History of Present illness Narrative [facility] [address] [place] [address] Patient: Erika Catrachita Downey Sex: female : 1990 Age: 33 y.o. PCP: Irma Toledo MD 08/07/2023 Erika Downey is here for a(n) post procedure follow up 06/20/2023 Bilateral L4/5, 5/1 Medial Branch Block with 90% relief x 3 weeks and continuing for the most part except 3 occasions with shooting pains of 9/10 in lower back lasting 2-4 days each time . Chief Complaint Patient presents with Back Pain Neck Pain HPI: Neck/headache: Chan occ NB (03/24/20) w/no relief. 05/26/2020 occ NB w/ 75% relief. Bilateral Occipital Nerve Block 06/22/21 with 90% relief currently. bilateral Occipital nerve block on 05/10/2022 with 80% relief. Low back: Right L 4/5, 5/1 medial branch block on 08/24/2021 w/ at least 80% relief. bilateral sacroiliac joint injection with 90% relief Right L 4/5, 5/1 medial branch block on 04/12/2022 w/ 85% relief lasting relief. post procedure follow up 06/20/2023 Bilateral L4/5, 5/1 Medial Branch Block with 90% relief x 3 weeks and continuing for the most part except 3 occasions with shooting pains of 9/10 in lower back lasting 2-4 days each time Back Pain This is a chronic problem. The current episode started more than 1 year ago (2009. Surgery in October [address] Casey). The problem occurs intermittently. The problem is unchanged (post SI injection ). The pain is present in the sacro-iliac and lumbar spine (R>L). The quality of the pain is described as aching. Radiates to: intermittent pain into right lateral thigh/calf. The pain is at a severity of 3/10. The pain is mild. Exacerbated by: sitting, bending, lifting, twisting, leaning on cart, pushing/pulling, transitioning. Stiffness is present At night and in the morning. Associated symptoms include headaches (not consistent in frequency. Pt taking Ajovy injections once a month) and leg pain (intermittent RLE laterally). Pertinent negatives include no bowel incontinence, chest pain, fever, numbness, tingling or weakness. Treatments tried: Ibuprofen, cyclobenzaprine w/min to mod relief. Tylenol w/no relief. PT done for back pain many years ago. The treatment provided mild relief. Neck Pain This is a chronic problem. The current episode started more than 1 year ago (sep 2017). The problem occurs every several days (with work ). The problem has been gradually worsening. Associated with: repetitive motion The pain is present in the occipital region, right side, left side and midline. The quality of the pain is described as aching. The pain is at a severity of 2/10. The pain is mild. The symptoms are aggravated by bending, stress and position (movement, texting, looking down at phone, turning head or lifting heavy items; raising arms above head ). Worse during: dependent on activity and stress level Stiffness is present In the morning, at night and all day. Associated symptoms include headaches (not consistent in frequency. Pt taking Ajovy injections once a month) and leg pain (intermittent RLE laterally). Pertinent negatives include no chest pain, fever, numbness, photophobia, tingling or weakness. Treatments tried: Flexeril 5 mg, PT 2018, MDP (no relief), NSAIDs (Naproxen, Diclofenac, Ibuprofen 800 mg), [place], BioFreeze, eye drops w/ slight relief. Ajovy inj with neuro with relief. The treatment provided mild relief. The effect of pain on patient's ADLS: Moderate Impairment. Past Medical History: Diagnosis Date Back pain Bilateral occipital neuralgia 10/20/2017 Chronic pain disorder Depression GERD (gastroesophageal reflux disease) Headache Low back pain Neck pain Past Surgical History: Procedure Laterality Date BACK SURGERY 10/2014 for herniated disc BILATERAL INJECTION BLOCK NERVE OCCIPITAL Bilateral 10/24/2017 Performed by Harsh Gallego MD at [facility] INJECTION BLOCK NERVE Bilat Occipital Bilateral 06/22/2021 Performed by Harsh Gallego MD at [facility] INJECTION BLOCK NERVE MEDIAL BRANCH: right L 4/5 5/1 Right 08/24/2021 Performed by Harsh Gallego MD at [facility] INJECTION BLOCK NERVE MEDIAL BRANCH: right L 4/5 5/1 Right 04/12/2022 Performed by Harsh Gallego MD at [facility] INJECTION BLOCK NERVE MEDIAL BRANCH: bilat L45 51 Bilateral 06/20/2023 Performed by Harsh Gallego MD at [facility] INJECTION BLOCK NERVE OCCIPITAL Bilateral 05/26/2020 Performed by Harsh Gallego MD at [facility] INJECTION BLOCK NERVE OCCIPITAL Bilateral 03/24/2020 Performed by Harsh Gallego MD at [facility] INJECTION BLOCK NERVE OCCIPITAL Bilateral 11/27/2018 Performed by Harsh Gallego MD at [facility] INJECTION BLOCK NERVE OCCIPITAL: bilat Bilateral 04/10/2018 Performed by Harsh Gallego MD at [facility] INJECTION BLOCK NERVE OCCIPITAL: bilat Bilateral 12/19/2017 Performed by Harsh Gallego MD at [facility] INJECTION BLOCK NERVE: bilat occipital Bilateral 05/10/2022 Performed by Harsh Gallego MD at [facility] INJECTION BLOCK SACROILIAC JOINT Bilateral 12/06/2022 Performed by Harsh Gallego MD at [facility] INJECTION MEDIAL BRANCH NERVE BLOCK BILATERAL C2/3,3/4 Bilateral 11/28/2017 Performed by Harsh Gallego MD at [facility] MOLE REMOVAL 10/14/2017 NASAL SURGERY TRANSUMBILICAL AUGMENTATION MAMMAPLASTY 2012 WISDOM TOOTH EXTRACTION 2005, 2013, 2017 Allergies Allergen Reactions Covid-19 Vacc,Mrna(Pfizer)(Pf) Anaphylaxis Throat tightness Iodinated Contrast Media Nausea Can have if given bendryl Family History Problem Relation Age of Onset No Known Problems Mother Heart disease Father Social History Socioeconomic History Marital status: Single Spouse name: Not on file Number of children: Not on file Years of education: Not on file Highest education level: Not on file Occupational History Not on file Tobacco Use Smoking status: Never Smokeless tobacco: Never Vaping Use Vaping Use: Never used Substance and Sexual Activity Alcohol use: Yes Comment: rarely Drug use: No Sexual activity: Defer Other Topics Concern Not on file Social History Narrative Not on file Social Determinants of Health Financial Resource Strain: Not on file Food Insecurity: No Food Insecurity (08/07/2023) Hunger Screening Food Insecurity - Worry: Never True Food Insecurity - Inability: Never True Transportation Needs: Not on file Physical Activity: Not on file Stress: Not on file Social Connections: Not on file Interpersonal Safety: Not on file Review of Systems Constitutional: Negative for fever. HENT: Negative. Eyes: Negative for photophobia. Respiratory: Negative. Cardiovascular: Negative for chest pain. Gastrointestinal: Negative. Negative for bowel incontinence. Endocrine: Negative. Genitourinary: Negative. Musculoskeletal: Positive for back pain and neck pain. Skin: Negative. Neurological: Positive for headaches (not consistent in frequency. Pt taking Ajovy injections once a month). Negative for tingling, weakness and numbness. Vital Signs: BP 111/89 (BP Site: Right Arm, BP Postition: Sitting) Pulse 94 Resp 18 Ht 160 cm (5' 3 ) Wt 61.2 kg (135 lb) SpO2 99% BMI 23.91 kg/m Physical Exam: GENERAL - Healthy patient that appears stated age. HEENT - Normocephalic / Atraumatic, Extraoccular movements intact, trachea midline, thyroid within normal limits. CV - pulse regular, Warm extremities with appropriate color of nailbeds. RESP - No obvious wheezing, No Shortness of Breath, No overexertion response to exam maneuvers. COORDINATION - remains intact. PSYCH - Alert and Oriented x4, Attentive and appropriate, constitutionally normal, displays normal mood and affect per situation, answered questions appropriately during examination, demonstrated appropriate attention during discussion, demonstrated appropriate cognitive reasoning and understanding of the medical condition by asking appropriate questions regarding the diagnosis and risks/benefits/alternatives of treatment modalities. No obvious deficits in memory, reasoning, or intellect. Cervical: SKIN - No rashes or bruising in the area of the patient s pain. LYMPH NODES - demonstrate no obvious enlargement. EXTREMITIES - Upper extremities are warm, with minimal edema and palpable pulses. Tenderness to palpation noted in the cervical spine and paraspinal musculature. Pain is elicited with flexion, extension, and lateral rotation of the cervical spine. Range of motion is diminished with these motions due to pain. Facet palpation is noted to be painful and concordant with the patient s normal pain complaints. STRENGTH - noted to be 5 out of 5 all muscle groups bilateral upper extremities including muscles involving shoulder flexion and abduction, elbow flexion and extension, as well as wrist flexion and extension and intrinsic muscles of the hand. No notable atrophy, fasciculations or spasm. SENSORY - No notable sensory deficits in the bilateral upper extremities to touch or pinprick in all dermatomal distributions. Spurlings sign is negative. Cranial nerves 3-12 are grossly intact, Pupils are equally round and react to light, No notable photophobia, No pain with palpation of the frontal or maxillary sinuses, No pain with opening or closing the jaw or palpation of the TMJ Joint. Notable palpatory tenderness over the Bilateral Occipital Nerve at the Occipital Groove. Assessment/Treatment Plan: Erika was seen today for back pain and neck pain. Diagnoses and all orders for this visit: Bilateral occipital neuralgia - Case request operating room: INJECTION BLOCK NERVE: bilat occipital Bilateral Occipital Nerve Block -under fluoroscopy It is hopeful that the described procedure will provide symptomatic pain relief. It is felt to be medically necessary noting that the patient has tried and failed more conservative modalities of therapy and this is the next most appropriate step. The procedure was described in detail to the patient as well as the potential benefits of pain reduction alongside risks of the procedure and alternatives. Risks were described as including, but not limited to bleeding, infection, nerve damage, spinal cord injury, paralysis, stroke, dural puncture headache, and medication reaction. The patient expressed understanding regarding the risks and benefits and wishes to proceed. It was explained that occipital nerve injections occasionally require a repeat injection before significant relief is noted, but we will determine after each injection if another one is indicated. Depending on the amount and duration of relief obtained from the injection, additional modalities of therapy including medications and physical therapy may need to be utilized alongside or following the injections. Follow up 2 weeks after procedure The medications prescribed have been reviewed for medication interactions/contraindications and/or for upcoming procedures: continue current medication regimen without any changes. DISCUSSION: Treatment options discussed with patient and all questions answered to patient's satisfaction. Discussed the rules and regulations surrounding prescription of opioids and compliance at length. Failure to follow the rules and regulation will result in tapering and discontinuation of medications if applicable. Prescribed medication that requires intensive monitoring for toxicity We do not currently prescribe any controlled substance from this practice. Treatment plans discussed but not opted for at this time: Lumbar RFA. Patient would like to proceed with the current outlined treatment plan before moving forward with any other options. It appears that the patient's previous pain is under adequate control with the previous procedure. At this point, we will continue to monitor these symptoms and turn our immediate attention to the more painful complaint that was discussed today. It does appear that is it the new primary pain complaint and the patient would likely benefit from a procedure as treatment for this complaint as well. The spine model was demonstrated and MRI was reviewed and used to explain the condition. OARRS: Reviewed. Scribe Statement: Scribed for and in the presence of MELBA RAY by Erika Wilhelm CNA. Provider Statement: I, MELBA RAY, personally performed the services described in the documentation, as scribed by Erika Wilhelm CNA in my presence, and it is both accurate and complete. Erika Wilhelm CNA 08/07/23 0948 MELBA Ray 08/07/23 1554 documented in this encounter [facility] 08-07-2023 Instructions Erika Wilhelm CNA - 08/07/2023 8:45 AM EST Epidural Steroid Injection (KIMMIE) / Nerve Root Injection / Nerve Block These procedure(s) involve the injection of a steroid and anesthetic into the epidural space or the nerve sheath that is both diagnostic and potentially therapeutic for alleviating discomfort of the legs and arms secondary to compression of the respective nerves due to bulging discs, bone spurs and other potential causes. Steroids are potent anti-inflammatory drugs that act to decrease the swollen and inflamed nerves thus relieving your clinical symptoms. How Long Will This Procedure Last? The extent and duration of pain relief may depend on the amount of inflammation and how many areas are involved. Other coexisting factors may be responsible for your pain. You and your physician will discuss expected results of procedure(s). After Your Injection You may experience soreness and tenderness at the area of treatment. This pain may not occur until later today after the numbing medicine wears off. The steroid can take 3-5 days to work and provide noticeable improvement. Activity You may feel temporary numbness, weakness or tingling: In the neck, arm, or fingertips (if your procedure was done in your neck) In the legs (if your procedure was done in your lower back) These symptoms are normal, and should subside within 3-4 hours. In that time, be careful to avoid falls. As a safety precaution, you must have a compressed air pile driver operator after a lumbar nerve root injection, even if you do not receive sedation. Resume activity as tolerated when function has returned. Medications Resume your routine medications after your procedure. You may resume blood thinners per your regular schedule after the procedure. If you received sedation: If you received sedation for your procedure, you may feel sleepy or not yourself for several hours today. For the next 24 hours avoid activities that requires alertness or coordination. This includes: Driving or operating heavy machinery Using power tools Consuming alcohol Do not make important or complex decisions or sign legal documents in the next 24 hours. Other Instructions: If you feel severe pain at the injection site with swelling and redness, increased leg weakness, a fever of 101 or higher, headache (or worsening headache), changes in vision or urinary retention: Please call the office at , or have someone take you to the nearest emergency room. Tell the emergency room staff that you recently had a spine injection. A doctor must evaluate you for bleeding and injection complications. If you lose control over bowel, bladder, or legs: Go to the nearest emergency room. If you are diabetic, the steroids used in this procedure can increase your blood sugar. If your blood sugar is 250mg/dL or higher, contact your primary care physician, or the doctor who manages your diabetes, to discuss how to get it back to normal. documented in this encounter [facility] 06-05-2023 Note Indication: Palpitat ion and tachycardia Procedure: Patient underwent 30-day event monitor. Baseline rhythm is sinus alternating with very mild sinus tachycardia. During the monitoring. The patient entered numerous episodes of chest pain, palpitation and tachycardia. Rhythm strips demonstrate either sinus or mild sinus tachycardia rare PACs and PVCs were seen. Conclusion 1. Baseline rhythm is normal sinus rhythm alternating with mild sinus tachycardia 2. Rare PACs and PVCs were seen 3. Patient entered numerous episodes of chest pain, palpitation, tachycardia, dizziness and heart rate tracing the rhythm during which was either sinus or very mild sinus tachycardia. Rare PACs and PVCs were seen [facility] 03-23-2023 Evaluation note Encounter Date Diagnosis Assessment Notes Mar, Contact with and (suspected) exposure to covid-19 (ICD-10 - Z20.822) Mar, Viral URI with cough (ICD-10 - J06.9) Discussed with patient exam and history is consistent with viral upper respiratory infection. Discussed viral nature of illness and typical duration of 7 to 14 days. Advised antibiotics unfortunately do not treat viral illnesses. May use symptomatic treatment such as NyQuil/DayQuil, Cepacol throat sprays or throat lozenges, bland diet in small amounts as tolerated, push fluids. May use Tylenol/ibuprofe n for any pain/fever. Follow-up with PCP if not improving over the next 7 days, sooner if significantly worsening symptoms. Rapid COVID and influenza negative. [facility] Other 04-04-2023 Evaluation note* Encounter Date Diagnosis Assessment Notes Treatment Notes Treatment Clinical Notes Nov, Trochanteric bursitis, right hip (ICD-10 - M70.61) I dependently evaluated the MRI of the lumbar spine and the report. The plain x-ray and report also were evaluated. The patient at this point has right trochanteric tenderness right sacroiliac tenderness her disc has a slight eccentricity to the left it is postoperative most likely this is scar with a small amount of disc displacement the disc displacement is on the left and her pain is on the right it does not secondary to nerve root impingement. I recommended pain management for her. Nov, Inflammation of right sacroiliac joint (ICD-10 - M46.1) [facility] Other 03-15-2023 History general Narrative - Reported* Type Description Date Medical History Herpes Medical History Scoliosis Medical History Lumbar herniated disc, had low b ack surgery 10/23 Medical History Anxiety Medical History Acid Reflux Surgical History Breast augmentation 02/19 Surgical History lower back sugery/herniated dis c 10/23 Surgical History wisdom teeth removal Surgical History mole removal of right breast 2017 Surgical History occipital nerve blocks 2017 Surgical History sinus surgery Hospitalization History See Sx Hx Hospitalization History No mental health hospita lizations, no suicide attempts [facility] Encounter Date Diagnosis Assessment Notes Treatment Notes Treatment Clinical Notes Mar, Globus sensation (ICD-10 - F45.8) Mar, Dysphagia (ICD-10 - R13.10) Mar, GERD (gastroesophageal reflux disease) (ICD-10 - K21.9) [facility] Other 07-24-2022 Evaluation note* Encounter Date Diagnosis Assessment Notes Treatment Notes Treatment Clinical Notes Feb, Cough (ICD-10 - R05.9) Feb, Viral upper respiratory infection (ICD-10 - J06.9) Viral upper respiratory infection: adult home care material was printed Drink plenty fluids, get plenty of rest. Take Tylenol or Motrin as needed for aches pains or fevers. Follow-up with your family physician if no improvement in 2 to 3 days. [facility] Other 07-12-2022 History general Narrative - Reported* Type Description Date Medical History Herpes Medical History Scoliosis Medical History Lumbar herniated disc, had low b ack surgery 10/23 Medical History Anxiety Medical History Acid Reflux Surgical History Breast augmentation 02/19 Surgical History lower back sugery/herniated dis c 10/23 Surgical History wisdom teeth removal Surgical History mole removal of right breast 2017 Surgical History occipital nerve blocks 2018 Surgical History sinus surgery Hospitalization History See Sx Hx Hospitalization History No mental health hospita lizations, no suicide attempts [facility] Other 04-04-2022 Evaluation note* Encounter Date Diagnosis Assessment Notes Treatment Notes Treatment Clinical Notes Nov, Contact with and (suspected) exposure to other viral communicable diseases (ICD-10 - Z20.828) Nov, Viral URI (ICD-10 - J06.9) Advised patient that rapid COVID, rapid Strep, and Influenza A/B test was negative today in office. Will send in rx of [place] to use as directed, may take Tylenol/Motrin as directed for aches/fever. Supportive care as directed, push fluids and rest, throat lozenges, nasal saline spray as directed, cool mist humidification. Follow up with PCP if symptoms persist. Immediate eval for SOB, wheezing, difficulty breathing, chest pain, headache, neck pain/stiffness, light sensitivity, abdominal pain, N/V/D, rash, or other new or concerning symptoms. Patient verbalizes understanding and is agreeable to treatment plan Nov, Other Additional time spent conducting pre-visit phone call, screening for symptoms, instructions on social distancing, application and removal of PPE, and cleaning of examination room, equipment and supplies was preformed. Patient education given for testing methodology and results. Patient care instructions given in writting by [facility] document [facility] Other 03-15-2022 History general Narrative - Reported* Type Description Date Medical History Herpes Medical History Scoliosis Medical History Lumbar herniated disc, had low b ack surgery 10/23 Medical History Anxiety Medical History Acid Reflux Surgical History Breast augmentation 02/19 Surgical History lower back sugery/herniated dis c 10/23 Surgical History wisdom teeth removal Surgical History mole removal of right breast 2017 Surgical History occipital nerve blocks 2018 Surgical History sinus surgery Hospitalization History See Sx Hx Hospitalization History No mental health hospita lizations, no suicide attempts [facility] Other 03-03-2022 Evaluation note* Encounter Date Diagnosis Assessment Notes Treatment Notes Treatment Clinical Notes Oct, Contact with and (suspected) exposure to other viral communicable diseases (ICD-10 - Z20.828) Advised patient that rapid COVID antigen test and Influenza A/B test was negative today in office. Per patient request, will send for COVID PCR test. Instructions provided on how to schedule. Advised that we will call with results in 2-5 days. Advised patient to quarantine until results of test are known. Encouraged supportive care, including, increasing fluids, rest, Tylenol/Motrin, OTC cold medications, cool mist humidification, throat lozenges, nasal saline spray. Patient to follow up with PCP if symptoms do not improve. Immediate evaluation in ER for worsening chest pain, shortness of breath, difficulty breathing, fevers > 103, abdominal pain, signs of dehydration, or if any new or concerning symptoms arise. Patient verbalizes understanding and is agreeable with treatment plan. Patient left in stable condition Oct, Other Additional time spent conducting pre-visit phone call, screening for symptoms, instructions on social distancing, application and removal of PPE, and cleaning of examination room, equipment and supplies was preformed. Patient education given for testing methodology and results. Patient care instructions given in writting by [employer] document [employer] Other 01-27-2022 Evaluation note* Encounter Date Diagnosis Assessment Notes Treatment Notes Treatment Clinical Notes Aug, Contact with and (suspected) exposure to other viral communicable diseases (ICD-10 - Z20.828) Covid and flu test neg, see above. Aug, Viral gastroenteriti s (ICD-10 - A08.4) Meds as prescribed prn for nausea. Rest and push fluids. Discussed viral nature of her syndrome and that supportive care is the best course of action. BRAT diet. Avoid spicy food and dairy. May take otc Immodium prn for diarrhea. Discussed warning s/s of dehydration or of worsening syndrome that wound indicate need for immediate f/u. Pt to otherwise f/u with pcp as needed. Pt understood and agreed to treatment plan. Aug, Other Additional time spent conducting pre-visit phone call, screening for symptoms, instructions on social distancing, application and removal of PPE, and cleaning of examination room, equipment and supplies was preformed. Patient education given for testing methodology and results. Patient care instructions given in writting by CDC Care At Home document. [employer] Other 12-14-2021 Evaluation note* Encounter Date Diagnosis Assessment Notes Treatment Notes Treatment Clinical Notes Jul, Contact with and (suspected) exposure to other viral communicable diseases (ICD-10 - Z20.828) Today test was performed in office. Results are currently negative. That does not mean that you will not develop COVID or do not currently have a low viral count of COVID. The rapid test works best if symptoms have been over 72 hours and the results can vary if you are asymptomatic There is a higher chance of false negative results to occur if testing is performed too soon. It is recommended that even if results are negative and you have been exposed to someone that has COVID that you follow current CDC recommendations. These can be found at CDC.GOV. Follow up with primary care provider if symptoms persist or do not improve *VIRAL URI HANOUT GIVEN ON OTC TREATMENTS, FOLLOW UP AND WHEN TO SEEK EMERGENCY TREATMENT Jul, Other Additional time spent conducting pre-visit phone call, screening for symptoms, instructions on social distancing, application and removal of PPE, and cleaning of examination room, equipment and supplies was preformed. Patient education given for testing methodology and results. Patient care instructions given in writting by [facility] Care At Home document. [employer] Other Evaluation noteNo InformationNort [employer] Other Evaluation noteNo assessment information available [facility] Work Phone: Evaluation note* Diagnosis Palpitations documented in this encounter [facility] Work Phone: Evaluation note* Diagnosis Bilateral occipital neuralgia- Primary documented in this encounter [facility] SystemEvaluation note* Diagnosis Abdominal bloating- Primary Flatulence, eructation, and gas pain Nausea in adult Gastroesophageal reflux disease, unspecified whether esophagitis present Epigastric pain Abdominal pain, epigastric documented in this encounter [facility] SystemEvaluation note* Diagnosis Other chest pain- Primary Myopericarditis Palpitations BMI 23.0-23.9, adult Anxiety Anxiety state, unspecified Never smoked any substance documented in this encounter [facility] Work Phone: Evaluation note* Diagnosis Abdominal bloating- Primary Flatulence, eructation, and gas pain Epigastric pain Abdominal pain, epigastric [facility] Diagnosis Abdominal bloating- Primary Flatulence, eructation, and gas pain Generalized abdominal pain Abdominal pain, generalized [facility] Author Vikash Carmona [facility] September 24, 2022 2:09pm Note Date/Time September 24, 2022 2:09pm [facility] [address] [place] [address] Gastroenterology H&P Signed Patient: Erika Downey MR#: [id number] : 1990 Acct:[id number] Age/Sex: 32 / F Adm Date: 3 Loc: Room: Type: [facility] Attending Dr: Vikash Carmona MD Copies to: MD Irma Burgess MD~ Date of Service: 09/24/2022 HISTORY & PHYSICAL: Patient's history with special attention to the cardiovascular, pulmonary systems and the current problem was reviewed with the patient immediately prior to the procedure. Present medications and doses reviewed in the EMR. Allergies and pertinent laboratory tests were also reviewedat this time in the EMR. The physical examination, as below, was then performed. Indication, assessment and HPI: 32-year-old female presents for EGD to evaluate history of globus sensation Family history of GI malignancy? No PHYSICAL EXAMINATION Mouth and Pharynx : Moist mucus membranes, normal dentition Cardiac: Regular rate, regular rhythm Pulmonary: Clear to auscultation bilaterally, no wheezing Neurological: Alert and oriented x3, no focal deficits noted Abdomen: Abdomen soft, non-tender REVIEW OF SYSTEMS Constitutional: Denies malaise, fevers Cardiovascular: Denies chest pain, palpitations Respiratory: Denies shortness of breath, wheezing Gastrointestinal: Per HPI Genitourinary: Denies dysuria, polyuria Musculoskeletal: Denies joint swelling, joint stiffness Neurological: Denies numbness, tingling Integumentary: Denies rashes, skin lesions Endocrine: Denies fatigue, weight loss Written informed consent obtained from the patient. Risks (including but not limited to perforation, infection, bloating, bleeding, need for emergent surgeryand loss of life), benefits and alternatives explained and questions answered. The patient verbalized understanding. Based on history patient is an appropriate candidate for the procedure. Vikash Carmona MD Documented By: Vikash Carmona MD 09/24/22 1408 Signed By: <Electronically signed by Vikash Carmona MD> 09/24/22 140 [facility] Work Phone: History general Narrative - Reported* Type Description Date Medical History Herpes Medical History Scoliosis Medical History Lumbar herniated disc, had low b ack surgery 10/23 Medical History Anxiety Surgical History Breast augmentation 02/19 Surgical History lower back sugery/herniated dis c 10/23 Surgical History wisdom teeth removal Surgical History mole removal of right breast 2017 Surgical History occipital nerve blocks 2017 Surgical History sinus surgery Hospitalization History See Sx Hx Hospitalization History No mental health hospita lizations, no suicide attempts [facility] Other Hospital Discharge instructions Additional Instructions DISCHARGE INSTRUCTIONS FOR UPPER ENDOSCOPY WHAT TO EXPECT: - You may feel full, gassy or cramping after your procedure. In some cases, this may be from a few hours to a day. Walking may help relieve the discomfort. - Your throat may feel sore today from the scope that the doctor passed through your throat to visualize your stomach. Take a throat lozenge or suck on ice to ease the discomfort. - You may notice some streaks of blood in your sputum if the doctor has taken a biopsy. - You should begin to recover from anesthesia within 1 hour of the procedure, however may feel groggy for the next 24 hours. DO's AND DON'Ts: - Call your doctor right away if you have a hard abdomen, severe pain, vomiting or if you cough up large amounts of blood. - Call your doctor if you develop any rashes, hives or difficulty breathing. - If you take 81 mg aspirin for your heart it is safe to resume this medication. - If you take other blood thinner medications your doctor will instruct you when these can safely be resumed. - Do NOT drive for 24 hours. - Do NOT operate machinery such as power tools, lawn mowers, snow blowers, sewing machines, etc. for 24 hours. - Avoid alcoholic beverages and drugs for allergies, nerves, or sleep. - Do NOT stay alone. Do NOT leave your child unattended. - Do NOT make important personal or business decisions or sign any legal documents. - Eat solid foods and drink liquids in smaller amounts than usual until normal appetite returns. If you should experience an upset stomach, liquids high in sugar content (soda, Reinaldo-Aid, non-acid juices) are recommended. - Do NOT smoke. - Do take it easy today. You need not stay in bed, but avoid strenuous activities such as jogging or working out. FOLLOW UP & RECOMMENDATIONS: -Start amitriptyline 25 mg nightly. Take this medication at night because it can cause some drowsiness -Dr. Carmona's office will schedule you a follow-up in 3 to 4 months on this new medication to see if this is improved your symptoms -Notify the doctor if you have any problems. -Follow up with PCP. -Office number [phone].[facility] Work Phone: InstructionsNot on filedocumented in this encounter [facility] filedocumented in this encounter [facility] System[facility]ructionsNot on filedocumented in this encounter [facility] on filedocumented in this encounter [facility]ructionsNot on filedocumented in this encounter [facility]InstructionsNot on filedocumented in this encounter [facility] SystemReason for visit NarrativePATIENT HERE AT THE REQUEST OF DR. MULLIGAN FOR EVALUATION & TREATMENT OF GLOBUS SENSATION/LPRDNjohn j. [facility] [employer] Other Summary Purpose Family History No Family History Records Found Relationship Condition Age at Onset Recorded Date/T sosa family member Malignant neoplasm of pancreas Unknown family member Malignant neoplasm of lung Unknown family member Malignant neoplasm of ovary Unknown grandparent Malignant neoplasm of throat Unknown Advance Directives No Advanced Directives Records Found Advance Directive Response Recorded Date/ Time Advance Directives No April 08, 2022 12:21pm Chief Complaint and Reason for Visit Chief Complaint Goobus sentation, dy sphagia Reason for Referral Specialty Diagnoses / Procedures Referred By Contac t Referred To Contact Diagnoses Abdominal bloating Epigastric pain Procedures Colonoscopy Lin Tello DO [address] [place] [address] Referral ID Status Reason Start Date Expiration Date V isits Requested Visits Authorized [id number] Pending Review 09/15/2023 09/14/2024 1 1 Specialty Diagnoses / Procedures Referred By Contac t Referred To Contact Diagnoses Other chest pain Palpitations Procedures ECG 12 Lead Sylvia Myers MD [address] [place] [address] 2, [place] [address] [place] [id number] Referral ID Status Reason Start Date Expiration Date V isits Requested Visits Authorized [id number] Authorized 09/05/2023 09/04/2024 1 1 Specialty Diagnoses / Procedures Referred By Contac t Referred To Contact Cardiology Diagnoses Other chest pain Myopericarditis Procedures Follow Up In Cardiology Sylvia Myers MD [address] [facility] [address], [address] [place] [address] Sylvia Myers MD [address] [facility] [address], [place] [address] [place] [id number] Referral ID Status Reason Start Date Expiration Date V isits Requested Visits Authorized [id number] Authorized 09/05/2023 09/04/2024 1 1 Specialty Diagnoses / Procedures Referred By Contac t Referred To Contact Diagnoses Bilateral occipital neuralgia Procedures Case request operating room: INJECTION BLOCK NERVE: bilat occipital Bhavin Dodd, PA [address] [place] [address] Referral ID Status Reason Start Date Expiration Date V isits Requested Visits Authorized [id number] Pending Review 08/07/2023 08/06/2024 1 1 Reason evaluate and tr eat Diagnosis 1 Sacroiliac dysfuncti on (M53.3) Diagnosis 2 Trochanteric bursiti s, unspecified laterality (M70.60) Referral Organization [facility] Referring Provider First Name Jose Referring Provider Last Name Jacinto Referring Provider Specialty Neurologica l Surgery Referred Organization [facility] Referred Provider Jr. Gallego William Referred Address [address] [facility],[place], [place],[address] Referred Provider Specialty Pain Medicin e Referral Priority Routine General Notes Cari Moore 023 11:55:51 AM >Received today and waiting for office notes to be locked before sending referral Additional Source Comments INFORMATION SOURCE (unrecogn ized section and content) DATE CREATED AUTHOR 01/30/2018 [facility] DATE CREATED AUTHOR AUTHOR'S ORGANIZ ATION 11/26/2018 [facility] DATE CREATED AUTHOR AUTHOR'S ORGANIZ ATION 12/04/2022 [facility] DATE CREATED AUTHOR AUTHOR'S ORGANIZ ATION 04/12/2023 [facility] DATE CREATED AUTHOR AUTHOR'S ORGANIZ ATION 04/12/2023 [employer] DATE CREATED AUTHOR AUTHOR'S ORGANIZ ATION 06/11/2023 [facility] DATE CREATED AUTHOR AUTHOR'S ORGANIZ ATION 09/07/2023 [facility] DATE CREATED AUTHOR AUTHOR'S ORGANIZ ATION 09/19/2023 [facility] DATE CREATED AUTHOR AUTHOR'S ORGANIZ ATION 10/07/2023 [facility] DATE CREATED AUTHOR AUTHOR'S ORGANIZ ATION 10/07/2023 [facility] DATE CREATED AUTHOR AUTHOR'S ORGANIZ ATION 10/12/2023 [facility] REASON FOR VISIT (unrecogniz ed section and content) Specialty Diagnoses / Procedures Referred By Contac t Referred To Contact Cardiology Diagnoses Palpitations Procedures Legacy Holter or Cardiac Event Monitor Sylvia Myers MD [address] [facility] [address], [address] [address] [facility] [address] [facility] Virtual [place] [address] Referral ID Status Reason Start Date Expiration Date V isits Requested Visits Authorized [id number] Authorized 06/05/2023 06/04/2024 1 1 Reason Comments Back Pain Neck Pain Reason Comments Nausea Bloating, nausea aft er eating, abdominal pain Reason Comments Follow-up 4 months with EKG Specialty Diagnoses / Procedures Referred By Contac t Referred To Contact Diagnoses Other chest pain Palpitations Procedures ECG 12 Lead Sylvia Myers MD [address] [facility] [address], [address] [address] Referral ID Status Reason Start Date Expiration Date V isits Requested Visits Authorized [id number] Authorized 09/05/2023 09/04/2024 1 1 Reason Comments Abdominal Pain ABDOMINAL PAIN, THRO AT FEELS TIGHT, BLOATED, FOLLOWING EGD BY DR. Garcia, BUT SHE STOPPED CARAFATE, COLONOSCOPY 10/02/23 Care Teams (unrecognized sec tion and content) Team Status: Inactive Member Role Status Dates Irma Toledo MD Primary Care Provider Active Vikash Carmona MD Attending Provider Active Team Status: Active Member Role Status Dates Irma Toledo MD Primary Care Provider Active Technical Services Manager Relationship Specialty Start Date End Date Irma Toledo MD [address] [place] [address] PCP - General 08/17/19 Technical Services Manager Relationship Specialty Start Date End Date Irma Toledo MD [address] [phone] PCP - General 09/30/14 Technical Services Manager Relationship Specialty Start Date End Date Irma Toledo MD [address] [phone] PCP - General 09/30/14 Technical Services Manager Relationship Specialty Start Date End Date Irma Toledo MD [address] [place] [address] PCP - General 08/17/19 Technical Services Manager Relationship Specialty Start Date End Date Irma Toledo MD [address] [phone] PCP - General 09/30/14 Technical Services Manager Relationship Specialty Start Date End Date Irma Toledo MD [address] [place] [address] PCP - General 09/30/14 Technical Services Manager Relationship Specialty Start Date End Date Seth SierraDO [address] [place] [address] PCP - [facility] 09/30/23 Technical Services Manager Relationship Specialty Start Date End Date Seth Sierra DO [address] [place] [address] PCP - [facility] Family [facility] 09/30/23 Technical Services Manager Relationship Specialty Start Date End Date Seth Sierra DO [address] [place] [address] PCP - [facility] Family [facility] 09/30/23 FOR RECORDS PERTAINING TO PATIENTS WHO ARE OR HAVE BEEN ENROLLED IN A CHEMICAL DEPENDENCY/SUBSTANCEABUSE PROGRAM, SOME INFORMATION MAY BE OMITTED. This clinical summary was aggregated from multiple sources. Caution should be exercised in using it in the provision of clinical care. This summary normalizes information from multiple sources, and as a consequence, information in this document may materially change the coding, format and clinical context of patient data. In addition, data may be omitted in some cases. CLINICAL DECISIONS SHOULD BE BASED ON THE PRIMARY CLINICAL RECORDS. [facility] [employer] [facility]. provides no warranty or guarantee of the accuracy or completeness of information in this document.
[2023-10-31 15:10] LABS: Age Gdln ACOG Testing Note (.); HPV Aptima Negative (Negative); IGP, Aptima HPV, rfx 16/18,45 Note (.)
== END 2023-10-28 20:44 | disposition home or self-care (01) ==
LOC: LAB 20:43
PROVIDERS: PCP Family Medicine; Visit Provider Physician Assistant
DX: Z01.419 Encounter for gynecological examination (general) (routine) without abnormal findings (principal)
CPT/HCPCS: 87624; G0145

== ENCOUNTER 2024-02-08 17:43 | Emergency (ER) | payer OTHER, SELFPAY ==
[2024-02-08] VITALS (21 sets, daily range): BP systolic 122–160; BP diastolic 64–113; PULSE 80–106; TEMP 36.8; O2SAT 10–100; BMI 21.3
--- OUTSIDE RECORDS SUMMARY | 2024-02-08 17:50 | XMS_ITS | CCD ---
Author Organization [facility] Inform ion Partnership [facility] Care Team Providers Care Java Lead Engineer Name Role Phone MERCEDES MARTIN Unavailable Unavailable KASSANDRA LORD Attending Unavailable MADALYN JOHNSON Attending Unavailable MADALYN JOHNSON Referring Unavailable KASSANDRA LORD Attending Unavailable BHAVIN DODD (PA) Referring Unavail able Lorie Funes Unavailable Ama Schrader Unavailable Haley Wilhelm Unavailable Carla Palafox Unavailable Vikash Carmona Unavailable MD Irma [place] Primary Care Provider [phone] MD Vikash Carmona Attending Provider [phone] IRMA TOL[place]O Primary Care Unavailable LEIF BACA Admitting Unavailable VARSHA Varela, LEIF Attending Unavailable LORI .LIN Consulting Unavailable CAREN HURT Consulting Unavailable SHAZIA ., DR CELIS Admitting Unavailchayo e SHAZIA ., DR CELIS Attending Unavailchayo TOLEDO, DR IRMA Domínguez Primary Care Unavailable SHAZIA ., DR CELIS Consulting UnavailEleonora Perry Unavailable Dr. Sylvia Myers Attending Cherie [place], Dr. Irma Montenegro Primary Care Cherie [place], Dr. Irma Montenegro Primary Care Unavailcatrachita [place]edo, Dr. Irma Montenegro Primary Care Cherie [place], Dr. Irma Montenegro Primary Care Unavaila anshu Myers, Dr. Moreau Referring Unavaila anshu Myers, Dr. Moreau Attending UnavailDr. Irma Broderick Primary Care UnavailIrma Broderick MD Primary Care Provider [phone] SYLVIA MYERS Referring Unavailable IRMA TOLEDO Primary Care Unavailable Irma [place] MD Primary Care Provider Irma Yoder Consulting Unavailable Paris, Irma A Primary Care Unavailable Alahmad, Alaa Admitting Unavailable Alahmad, Alaa Attending Unavailable Juan Alberto Larsen Consulting Unavailable Richar Nascimento Consulting Unavailable Harsh Wells Consulting Unavail able Sylvia Myers Consulting Unavailable Jamie Murrieta Consulting Unavailab Melissa Chapman Consulting Unavailable Chela Zavaleta Consulting Unavailable Lauren Prado Consulting Unavailab Zena Gates Consulting Unavailable Mary Dee Consulting Unavailable Celia Castillo Consulting Unavailable [place], Irma A Primary Care Unavailable Vikash Carmona Admitting Unavailable Vikash Carmona Attending Unavailable Sierra DO, Seth A Primary Care Provider [phone] MONET RUIZ Attending Unavailable TOLEDO, IRMA A Referring Unavailable TOLEDO, IRMA A Primary Care Unavailable MONET RUIZ Attending Unavailable TOL[place]O, IRMA A Referring Unavailable SIERRA, SETH A Primary Care Unavailable SIERRA, SETH A Referring Unavailable RAMMYRONKDILCIA Attending Unavailable BEBETO [place] Attending Unavailable RAMBASEKDILCIA Attending Unavailable RAMBASEKDILCIA Attending Unavailable BHAVIN DODD Attending Unavailable TOLEDO, IRMA A. Referring Unavailable TOLEDO, IRMA A. Primary Care Unavailable GALLEGO, HARSH E Admitting Unavailable GALLEGO, HARSH E Attending Unavailable TOLEDO, IRMA A. Referring Unavailable SIERRA, SETH A Primary Care Unavailable GALLEGO, HARSH E Attending Unavailable GALLEGO, HARSH E Referring Unavailable SIERRA, SETH A Primary Care Unavailable GALLEGO, HARSH E Admitting Unavailable GALLEGO, HARSH E Attending Unavailable GALLEGO, HARSH E Referring Unavailable SIERRA, SETH A Primary Care Unavailable GALLEGO, HARSH E Attending Unavailable AGLLEGO, HARSH E Referring Unavailable SIERRA, SETH A Primary Care Unavailable CATIE CRISTINA Attending Unavailable SIERRA, SETH A Primary Care Unavailable TOLEDO, IRMA A. Referring Unavailable TOLEDO, IRMA A. Primary Care Unavailable NIENBERG, BHAVIN S Attending Unavailable SIERRA, SETH A Referring Unavailable SIERRA, SETH A Primary Care Unavailable GALLEGO, HARSH E Admitting Unavailable GALLEGO, HARSH E Attending Unavailable SIERRA, SETH A Referring Unavailable SIERRA, SETH A Primary Care Unavailable GALLEGO, HARSH E Attending Unavailable GALLEGO, HARSH E Referring Unavailable SIERRA, SETH A Primary Care Unavailable CAREN WU Attending Unavailable SIERRA, SETH A Primary Care Unavailable NIENBERG, BHAVIN S Attending Unavailable SIERRA, SETH A Referring Unavailable SIERRA, SETH A Primary Care Unavailable GRILLIS, LIN E Admitting Unavailable GRILLIS, LIN E Attending Unavailable TOLEDO, IRMA A. Primary Care Unavailable GRILLIS, LIN E Attending Unavailable GRILLIS, LIN E Referring Unavailable TOLEDO, IRMA A. Primary Care Unavailable MILO CHAKRABORTY Attending Unavailable TOLEDO, IRMA A. Primary Care Unavailable SIERRA, SETH A Referring Unavailable SIERRA, SETH A Primary Care Unavailable GRILLIS, LIN E Admitting Unavailable GRILLIS, LIN E Attending Unavailable GRILLIS, LIN E Referring Unavailable TOLEDO, IRMA A. Primary Care Unavailable GRILLIS, LIN E Attending Unavailable GRILLIS, LIN E Referring Unavailable SIERRA, SETH A Primary Care Unavailable MILO CHAKRABORTY Attending Unavailable SIERRA, SETH A Primary Care Unavailable TOLEDO, IRMA A. Primary Care Unavailable SYLVIA MYERS Attending Unavailable TOL[place]O, IRMA YUE Primary Care Unavailable Allergies Allergy Classification Reported Allergen(s) Allergy Type Date of Onset Reaction(s) Facility (3 sources) Acetaminophen / oxyCODONE Drug Allergy nausea and vomiting [employer] Other (3 sources) Pfizer COVID-19 Vac-Luda 5-11y Drug allergy anaphylaxis [employer] Other (9 sources) SARS-CoV-2 (COVID-19) vaccine, mRNA spike protein Drug allergy anaphylaxis [employer] Other (2 sources) COVID-19 vaccine, mRNA ([employer]); Translations: [COVID-19 vaccine, mRNA ([employer])] Allergy to substance 02-10-20 Anaphylaxis [facility] (1 source) Acetaminophen / oxyCODONE Drug Allergy [facility] Repository (1 source) ALLERGIES NOT ON FILE; Translations: [ALLERGIES NOT ON FILE] Propensity to adverse reactions (disorder) [facility] Repository (13 sources) Covid-19 Vacc,Mrna(Pfizer) (Pf); Translations: [COVID-19 VACC,MRNA(PFIZER) (PF)] Propensity to adverse reactions to drug 06-06-20 21 Anaphylaxis [facility] (11 sources) Iodinated Contrast Media; Translations: [IODINATED CONTRAST MEDIA] Propensity to adverse reactions to drug 05-29-20 23 Nausea [facility] (10 sources) pregabalin; Translations: [PREGABALIN] Drug Allergy 08-20-19 24 Dizziness [facility] Medications Current Medications Medication Drug Class(es) Dates Sig (Normalized) Sig (Original) amitriptyline hydrochloride 25 mg oral tablet (1 source) Tricyclic Antidepressant Start: 3 take 25 mg by mouth once daily at bedtime Amitriptyline Active 25 MG PO Daily at bedtime September 24, 2022 12:00am betamethasone 0.5 mg/ml / clotrimazole 10 mg/ml topical cream (9 sources) Azole Antifungal, Corticosteroid Start: 0 clotrimazole-bet amethasone (LOTRISONE) cream Indications: 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 Apply to external auditory canals 30 g 1 06/28/2020 Active carboxymethylcellulose sodium 5 mg/ml / glycerin 10 mg/ml / polysorbate 80 5 mg/ml ophthalmic solution (10 sources) Non-Standardized Chemical Allergen carboxymethylce- glycern-poly80 (REFRESH OPTIVE ADVANCED) 0.5-1-0.5 % drops Administer 1 drop to both eyes in the morning. 0 Active take 1 drop(s) into the eye(s) once daily dficjfpxzmhegaz-fjxvvyj-bqlh06 0.5-1-0.5 % drops Administer 1 drop into affected eye(s) once daily. 0 Active chlorhexidine gluconate 1.2 mg/ml mouthwash (16 sources) Start: 09-24-2022 Chlorhexidine Gluconate Active 1 [...] 0 Active cycloSPORINE 0.5 mg/ml ophthalmic suspension (10 sources) Calcineurin Inhibitor Immunosuppressant Start: 08-12-2018 take [...] 1.5 mg/ml oral solution (1 source) Uncompetitive X-exatqx-L-asparta te Receptor Antagonist, Sigma-1 Agonist Start: 11-12-2021 take 10 mL by mouth every eight hours Sewell DM 7.5-7.5 MG/5ML 10 mL Orally every 8 hours for 5 days Nov, Active Diclofenac (1 source) Nonsteroidal Anti-inflammatory Drug Diclofenac Active diphenhydrAMINE hydrochloride 25 mg oral capsule (17 sources) Histamine-1 Receptor Antagonist Start: 02-02-2021 take 1 capsule by mouth every six hours as needed diphenhydrAMINE (BENADRYL) 25 mg capsule Take 1 capsule (25 mg total) by mouth every 6 (six) hours as needed for itching for up to 10 doses. 10 capsule 0 02/02/2021 Active Benadryl Active Norethindrone-Ethin Estradiol (12 sources) Estrogen Start: 09-24-2022 take 1 tablet [...] Oil Active fluocinonide 0.5 mg/ml topical solution (9 sources) Corticosteroid fluocinonide (LI DEX) 0.05 % external solution Apply 1 Application topically 2 (two) times a day as needed. 0 Active fluticasone propionate 0.05 mg/actuat metered dose nasal spray (9 sources) Corticosteroid Start: 03-10-2023 fluticasone propionate (FLONASE) [...] (thirty) days. 0 05/25/2021 Active Start: 05-25-2021 SASCHA AUTOINJE CTOR 225 mg/1.5 mL auto-injector INJECT [...] Start: 10-21-2022 take 1 capsule by mo uth once daily Omeprazole 40 MG 1 capsule 30 minutes before morning meal Orally Once a day for 30 days Oct, Active Start: 09-24-2022 take 20 mg by mouth once daily Omeprazole Active 20 MG PO Daily September 24, 2022 12:00am Start: 02-12-2022 take 2 capsules by m out once daily before breakfast omeprazole (PriLOSEC) 20 mg capsule Take 2 capsules (40 mg total) by mouth every morning before breakfast. 0 02/12/2022 Active Omeprazole 20 MG 2 capsules 30 min prior to the first meal of the day Orally Once a day for 90 days Active take 1 capsule by mo uth once daily Omeprazole 20 MG 1 capsule [...] 09/30/2023 Active sucralfate 1000 mg oral tablet (9 sources) Aluminum Complex take 1 tablet by mouth three times daily sucralfate (CARAFATE) 1 gram tablet Take 1 tablet (1 g total) by mouth 3 (three) times a day. 0 Active valACYclovir 500 mg oral tablet (10 sources) Herpesvirus Nucleoside Analog DNA Polymerase Inhibitor, [...] 09/29/2019 09/04/2023 Discontinued omega-3/dha/epa/ dpa/fish oil (OMEGA-3 2100 ORAL) (2 sources) End: 08-20-2023 omega-3/dha/epa/dp a/fish oil (OMEGA-3 2099 ORAL) Take 1,200 mg by mouth 2 (two) times a day. 0 08/20/2023 Discontinued (Patient Stopped On Own) omega-3/dha/epa/ dpa/fish oil (OMEGA-3 2100 ORAL) Take 1,200 mg by mouth 2 [...] [Generalized anxiety disorder] Onset: 3 09-05-2023 Chronic Esophageal disorders (12 sources) Laryngopharyngeal reflux; Translations: [...] Translations: [Abdominal distension (gaseous)] 08-20-2023 Episodic Other nervous system disorders (12 sources) [...] infection, unspecified Onset: 2 Resolved: 2 Episodic Residual codes; unclassified (2 sources) Body mass index 20-24 - normal; Translations: [Body mass index (BMI) 23.0-23.9, adult] Onset: 4 09-05-2023 Episodic Residual codes; unclassified (2 sources) Never smoked any substance; Translations: [Other specified health status] Onset: 4 09-05-2023 Episodic Spondylosis; intervertebral disc disorders; other back problems (20 sources) Displacement of cervical intervertebral disc; Translations: [Other cervical disc displacement, unspecified cervical region] Onset: 8 Chronic Spondylosis; intervertebral disc disorders; other back problems (20 sources) Sacroiliac disorder; Translations: [Sacrococcygeal disorders, not elsewhere classified] Onset: 8 Resolved: 8 06-02-2023 Episodic Unclassified (1 source) BX / BX() Onset: 8 Unclassified (1 source) Bilateral occipital neuralgia [M54.81] Onset: 4 Viral infection (4 sources) Herpes simplex without complication; Translations: [Herpes simplex without mention of complication] Episodic Past or Other Problems Problem Classification Problem Date Documented Da te Episodic/Chronic Cardiac dysrhythmias (8 sources) Palpitations; Translations: [Palpitations] Onset: 06-05-2023 06-05-2023 Episodic Intestinal infection (1 source) Viral intestinal infection, unspecified Onset: 09-06-2021 Resolved: 09-06-2021 Episodic Mood disorders (9 sources) Mood disorders Onset: 06-28-2020 06-28-2020 Nonspecific chest pain (9 sources) Chest pain, unspecified; Translations: [Chest pain] Onset: 05-02-2022 Episodic Other aftercare (1 source) Other intermediate accountant (current) drug therapy; Translations: [OTH HAT DESIGNER CURRENT DRUG THERAPY] Onset: 05-06-2022 Episodic Other aftercare (1 source) terminal make up operator (current) use of hormonal contraceptives; Translations: [HAT DESIGNER HORMONAL CONTRACEPTIVES] Onset: 05-06-2022 Episodic Other connective tissue disease (9 sources) Bilateral trochanteric bursitis; Translations: [Trochanteric bursitis, right hip] Onset: 11-19-2022 11-19-2022 Episodic Other ear and sense organ disorders (9 sources) Eczema of external auditory canal; Translations: [Acute eczematoid otitis externa, unspecified ear] Onset: 09-29-2019 09-29-2019 Episodic Other eye disorders (2 sources) Dry eyes; Translations: [Dry eye syndrome of unspecified lacrimal gland] Onset: 06-02-2023 06-02-2023 Episodic Other gastrointestinal disorders (1 source) Dysphagia, unspecified Onset: 04-08-2022 Resolved: 04-08-2022 Episodic Other gastrointestinal disorders (2 sources) Abdominal distension (gaseous); Translations: [Abdominal distension (gaseous)] Onset: 09-11-2023 Episodic Otitis media and related conditions (9 sources) Chronic otitis media; Translations: [Otitis media, unspecified, left ear] Onset: 09-29-2019 09-29-2019 Episodic Yazmin-; endo-; and myocarditis; cardiomyopathy (except that caused by tuberculosis or sexually transmitted disease) (4 sources) Myopericarditis; Translations: [Disease of pericardium, unspecified] Onset: 09-05-2023 09-05-2023 Episodic Residual codes; unclassified (2 sources) Body mass index (BMI) 23.0-23.9, adult; Translations: [Body mass index (BMI) 23.0-23.9, adult] Onset: 09-05-2023 Episodic Residual codes; unclassified (2 sources) Other specified health status; Translations: [Other specified health status] Onset: 09-05-2023 Episodic Unclassified (1 source) BX; Translations: [BX] Onset: 10-14-2017 Unclassified (1 source) Cough R05.9 Onset: 03-03-2022 Resolved: 03-03-2022 Unclassified (1 source) Contact with and (suspected) exposure to covid-19 Z20.822 Results Test Name Value Interpretation Reference Range Facility HCG ( test) Ql (U)o n 10-02-2023 Beta HCG ( test) Ql (U) Negative Normal NEG [facility] [place] on above: Performed By: #### 2 106-3 #### [facility] ([id number]) [address] [facility], [place] [address] Surgical Pathologyon 024 Surgical Pathology Normal [facility] Comment on above: Result Comment: [facility] [address] [place] [address] Surgical Pathology Consultation Patient Name:ERIKA DOWNEY:1990 (Age: 33)Gender:FTaken:10/02/2023eported:10/06/2023hysician(s):Lin Tello D.O. ([phone])Copy To: Rec. #:[id number]: #[id number] Final Pathologic Diagnosis Descending/left colon biopsies: Fragments of mildly edematous colonic mucosa with no significant histopathologic abnormalities. Report Electronically Signed Out nsk/10/06/2023Viv Bernal MD Interpretation performed at [facility], [address] [place] [address], License number: [id number]. Clinical History Abdominal bloating. Gross Description Received in formalin labeled kranthi DOWNEY are 3 pale-duenas delicate soft tissue fragments, 0.2-0.5 cm in greatest dimension. The specimens are filtered and submitted in a single cassette. (1,ns,[id number], m8) TB tgb/10/03/2023EAK Specimen(s) Received Descending/left colon biopsies Fee Codes(s): 1; 65869 COMPREHENSIVE METABOLIC PANE [facility] 09-30-2023 Albumin [Mass/Vol] 4.4 g/dL Normal 3.2-5.3 [facility] Comment on above: Performed By: #### [place], 53887-2, THYR, 3051-0 #### [facility] ([id number]) [address] [place] [address], [address] [place] [address] ALP [Catalytic activity/Vol] 54 U/L Normal 39-130 [facility] Comment on above: Performed By: #### C MP, 94963-8, THYR, 305-0 #### [facility] ([id number]) [address], [address] [place] [address] ALT [Catalytic activity/Vol] 16 U/L Normal 0-31 [facility] Comment on above: Performed By: #### C MP, 70877-9, THYR, 3050-0 #### [facility] ([id number]) [address], [address] [place] [address] Anion gap [Moles/Vol] 10 mmol/L Normal 5-15 [facility] Comment on above: Performed By: #### C MP, , THYR, 3050-0 #### [facility] ([id number]) [address], [address] [place] [address] AST [Catalytic activity/Vol] 18 U/L Normal 0-41 [facility] Comment on above: Performed By: #### C MP, , THYR, 3050-0 #### [facility] ([id number]) [address], [address] [place] [address] Bilirubin [Mass/Vol] 0.5 mg/dL Normal 0.3-1.2 [facility] Comment on above: Performed By: #### C MP, 66584-5, THYR, 3050-0 #### [facility] ([id number]) [address], [address] [place] [address] Calcium [Mass/Vol] 9.2 mg/dL Normal 8.5-10.5 [facility] Comment on above: Performed By: #### C MP, 07088-0, THYR, 3050-0 #### [facility] ([id number]) [address], [address] [place] [address] Chloride [Moles/Vol] 104 mmol/L Normal 98-109 [facility] Comment on above: Performed By: #### C MP, , THYR, 305-0 #### [facility] ([id number]) [address] [address] [place] [address] CO2 [Moles/Vol] 24 mmol/L Normal 22-32 [facility] Comment on above: Performed By: #### C MP, , THYR, 305-0 #### [facility] ([id number]) [address], [address] [place] [address] Creatinine [Mass/Vol] 0.69 mg/dL Normal 0.40-1.00 [facility] Comment on above: Result Comment: METH OD TRACEABLE TO IDMS STANDARD Performed By: #### C JADE, , THYR, 305-0 #### [facility] ([id number]) [address], [address] [place] [address] eGFR (CKD-EPI) NON-RACE DEPENDENT >90 Normal >59 [facility] Comment on above: Result Comment: Reported eGFR is based on the CKD-EPI 2020 equation that does not use a race coefficient. Performed By: #### C JADE, , THYR, 305-0 #### [facility] ([id number]) [address] [address] [place] [address] Glucose [Mass/Vol] 82 mg/dL Normal 65-99 [facility] Comment on above: Performed By: #### C MP, , THYR, 305-0 #### [facility] ([id number]) [address] [address] [place] [address] Potassium [Moles/Vol] 3.8 mmol/L Normal 3.5-5.0 [facility] Comment on above: Performed By: #### C MP, 66819-7, THYR, 305-0 #### [facility] ([id number]) [address], [address] [place] [address] Protein [Mass/Vol] 7.3 g/dL Normal 6.0-8.0 [facility] Comment on above: Performed By: #### C JADE, , THYR, 305-0 #### [facility] ([id number]) [address], [address] [place] [address] Sodium [Moles/Vol] 138 mmol/L Normal 134-146 [facility] Comment on above: Performed By: #### C JADE, , THYR, 305-0 #### [facility] ([id number]) [address], [address] [place] [address] Urea nitrogen [Mass/Vol] 5 mg/dL Normal 5-23 [facility] Comment on above: Performed By: #### C JADE, , THYR, 305-0 #### [facility] ([id number]) [address], [address] [place] [address] FREE T3on 09-30-2023 Free T3 [Mass/Vol] 3.52 pg/mL Normal 2.50-3.90 [facility] Comment on above: Performed By: #### C JADE, , THYR, 305-0 #### [facility] ([id number]) [address], [address] [place] [address] MAGNESIUMon 09-30-2023 Magnesium [Mass/Vol] 2.4 mg/dL Normal 1.8-2.6 [facility] Comment on above: Performed By: #### C JADE, , THYR, 305-0 #### [facility] ([id number]) [address], [address] [place] [address] THYROID PROFILEon 09-30-2023 Free T4 [Mass/Vol] 0.78 ng/dL Normal 0.61-1.60 [facility] Comment on above: Performed By: #### C JADE, 63126-2, THYR, 3051-0 #### [facility] ([id number]) [address] [facility], [address] [place] [address] TSH 2.07 uIU/mL Normal 0.49-4.67 [facility] Comment on above: Performed By: #### C MP, 01095-5, THYR, 3051-0 #### [facility] ([id number]) [address] [facility], [address] [place] [address] XR HIP 2 OR 3 VW LEFTon [...] cx Ql (Mehnaz fld) Negative Normal NEG [facility] Comment on above: Performed By: #### 4 4015-6 #### [facility] ([id number]) [address] [facility], [address] [place] [address] HCG ( test) IA.rapi d Ql (S)on 09-11-2023 SERUM Negative Normal NEG [facility] Comment on above: Performed By: #### 8 0385-8 #### [facility] ([id number]) [address] [place] [address], [place] [address] Surgical Pathologyon 024 Surgical Pathology Normal [facility] Comment on above: Result Comment: [facility] [address] [place] [address] Surgical Pathology Consultation Patient Name:ERIKA DOWNEYAvery:1990 (Age: 33)Gender:FTaken:4Reported:09/16/2023hysician(s):Lin Tello D.O. ([phone])Copy To: Rec. #:[id number]: #[id number] Final Pathologic Diagnosis 1. Antrum biopsy: Mild chronic gastritis. Negative for helicobacter organisms on routine H&E examination. Negative for atypia or malignancy. 2. Distal esophageal biopsy: Mild chronic gastroesophagitis with changes consisteht with reflux. Negative for davis's esphagus, dysplasia, or malignancy. Report Electronically Signed Out st09/16/2023Graciela Cruz MD Interpretation performed at [facility], [address] [place], [address], License number: [id number]. Clinical History Gastroesophageal reflux, nausea, epigastric pain. Gross Description 1. Received in formalin labeled NASREEN, #1: Antrum BX are 2 duenas bits of soft tissue, ranging from 0.2-0.3 cm in greatest dimension. Filtered and submitted in a single cassette. (1, ns, [id number], m7) MG 2. Received in formalin labeled NASREEN, #2: Distal esophagus BX are 4 duenas bits of soft tissue, ranging from 0.1-0.3 cm in greatest dimension. Filtered and submitted in a single cassette. (1, ns, [id number], m7) MG mjg/4RG Specimen(s) Received 1: Antrum biopsy 2: Distal esophageal biopsy Fee Codes(s): 1; 71189 2; 52938 ECG 12 Leadon 09-05-2023 Normal sinus rhythm [facility] Work Phone: Holter monitor studyOrdered By: Sylvia Myers on 06-05-2023 [facility] Work Phone: Office Visit (Cardiology)on 04-11-2023 Follow-up [...] bottles. Updated verbally with patient Allergies Medication [employer] COVID-19 Vac-Luda 30 MCG/0.3ML Intramuscular Suspension Adverse [...] . A (more content not included)... Normal [facility] Blood Urea Nitrogenon 2022 Urea nitrogen [Mass/Vol] 5 mg/dL Low 7-25 [facility] Comment on above: Performed By: #### L YTES, CREAT, PP, CBC, BUN #### [address] Coagulation Profileon 2022 aPTT Coag (Bld) [Time] 26.2 s Normal 25.1-36.5 [facility] Comment on above: Result Comment: PERF ORMED BY: [place] [address] PATHOLOGIST RECREATION THERAPY DIRECTOR ZAKIYA NEGRETE M.D. Performed By: #### L YTIDRIS, CREAT, PP, CBC, BUN #### [address] INR Coag (PPP) [Relative time] 1.0 {INR} Normal [facility] Comment on above: Result Comment: INR [...] L YTES, CREAT, PP, CBC, BUN #### [address] PT Coag (PPP) [Time] 11.6 s Normal 9.0-12.9 [facility] Comment on above: Performed By: #### L YTES, CREAT, PP, CBC, BUN #### [address] Complete Blood Count Auto Di ffon 03-27-2023 Basophils (Bld) [#/Vol] 0.0 10*3/uL Normal 0.0-0.2 [facility] Comment on above: Result Comment: PERF ORMED BY: [place] [address] PATHOLOGIST RECREATION THERAPY DIRECTOR ZAKIYA NEGRETE M.D. Performed By: #### L YTES, CREAT, PP, CBC, BUN #### [address] Basophils/100 WBC (Bld) 0.5 % Normal . [facility] Comment on above: Performed By: #### L YTES, CREAT, PP, CBC, BUN #### [address] Eosinophils (Bld) [#/Vol] 0.2 10*3/uL Normal 0.0-0.45 [facility] Comment on above: Performed By: #### L YTES, CREAT, PP, CBC, BUN #### [address] Eosinophils/100 WBC (Bld) 2.8 % Normal . [facility] Comment on above: Performed By: #### L YTES, CREAT, PP, CBC, BUN #### [address] Erythrocyte distribution width (RBC) [Ratio] 12.9 % Normal 11.9-15.3 [facility] Comment on above: Performed By: #### L YTES, CREAT, PP, CBC, BUN #### [address] Hematocrit (Bld) [Volume fraction] 37.0 % Normal 34.0-46.4 [facility] Comment on above: Performed By: #### L YTES, CREAT, PP, CBC, BUN #### [address] Hemoglobin (Bld) [Mass/Vol] 12.5 g/dL Normal 11.8-15.4 [facility] Comment on above: Performed By: #### L YTES, CREAT, PP, CBC, BUN #### [address] Lymphocytes (Bld) [#/Vol] 3.8 10*3/uL Normal 1.00-4.8 [facility] Comment on above: Performed By: #### L YTES, CREAT, PP, CBC, BUN #### [address] Lymphocytes/100 WBC (Bld) 47.2 % Normal . [facility] Comment on above: Performed By: #### L YTES, CREAT, PP, CBC, BUN #### [address] MCH (RBC) [Entitic mass] 29.4 pg Normal 24.7-34.3 [facility] Comment on above: Performed By: #### L YTES, CREAT, PP, CBC, BUN #### [address] MCV (RBC) [Entitic vol] 86.7 fL Normal 80-100 [facility] Comment on above: Performed By: #### L YTES, CREAT, PP, CBC, BUN #### [address] Mean Corpuscular HGB Conc 33.9 g/dL Normal 32.0-35.0 [facility] Comment on above: Performed By: #### L YTES, CREAT, PP, CBC, BUN #### [address] Monocytes (Bld) [#/Vol] 0.7 10*3/uL Normal 0.0-0.8 [facility] Comment on above: Performed By: #### L YTES, CREAT, PP, CBC, BUN #### [address] Monocytes/100 WBC (Bld) 9.0 % Normal . [facility] Comment on above: Performed By: #### L YTES, CREAT, PP, CBC, BUN #### [address] Neutrophils (Bld) [#/Vol] 3.3 10*3/uL Normal 1.8-7.7 [facility] Comment on above: Performed By: #### L YTES, CREAT, PP, CBC, BUN #### [address] Neutrophils/100 WBC (Bld) 40.5 % Normal . [facility] Comment on above: Performed By: #### L YTES, CREAT, PP, CBC, BUN #### [address] NRBC% 0.1 /100{WBC} Normal 0-0.5 [facility] Comment on above: Performed By: #### L YTES, CREAT, PP, CBC, BUN #### [address] Platelet mean volume (Bld) [Entitic vol] 8.8 fL Normal 6.3-10.7 [facility] Comment on above: Performed By: #### L YTES, CREAT, PP, CBC, BUN #### [place] [address] [place] Platelets (Bld) [#/Vol] 302 10*3/uL Normal 150-450 [facility] Comment on above: Performed By: #### L YTES, CREAT, PP, CBC, BUN #### [address] RBC (Bld) [#/Vol] 4.27 10*6/uL Normal 3.60-5.00 [facility] Comment on above: Performed By: #### L YTES, CREAT, PP, CBC, BUN #### [place] [address] [place] WBC (Bld) [#/Vol] 8.1 10*3/uL Normal 3.8-11.6 [facility] Comment on above: Performed By: #### L YTES, CREAT, PP, CBC, BUN #### [address] Creatine Kinaseon 03-27-2023 CK [Catalytic activity/Vol] 64 U/L Normal 30-223 [facility] Comment on above: Performed By: #### L MIRYAM KAHN, PP, CBC, BUN #### [address] CK [Catalytic activity/Vol] 84 U/L Normal 30-223 [facility] Comment on above: Performed By: #### L MIRYAM KAHN, PP, CBC, BUN #### [address] Creatinineon 03-27-2023 Creatinine [Mass/Vol] 0.58 mg/dL Low 0.60-1.20 [facility] Comment on above: Performed By: #### L MIRYAM KAHN, PP, CBC, BUN #### [address] Creatinine Clr Calc Pharmacy 113.06 [facility] Comment on above: Result Comment: PERF ORMED BY: [place] [address] PATHOLOGIST RECREATION THERAPY DIRECTOR ZAKIYA NEGRETE M.D. Performed By: #### L MIRYAM KAHN, PP, CBC, BUN #### [address] GFR/1.73 sq M.predicted MDRD (S/P/Bld) [Vol rate/Area] mL/min/{1.73_m2} [facility] Comment on above: Performed By: #### L MIRYAM KAHN, PP, CBC, BUN #### [place] [address] [place] ECG 12 lead ECGon 03-27-2023 ECG 12 lead ECG [facility] [place] [address] [place] [address] Electrocardiograph Report Signed Patient: Erika Downey MR#: [id number] [birth year] : 1990 Acct:[id number] Age/Sex: 32 / F ADM Date: 03/26/23 Loc: Room: 3F3973-4 Type: DIS INOo Attending Dr: Jaqueline Hardy [...] By: MUS Signed By Jesenia Goff MD [id number] Normal [facility] Electrolyteson 03-27-2023 Anion gap [Moles/Vol] 11.8 mmol/L Normal 6.0-15.0 [facility] Comment on above: Performed By: #### L YTES, CREAT, PP, CBC, BUN #### [facility] [address] [place] [address] [place] Chloride [Moles/Vol] 106 mmol/L Normal 98-107 [facility] Comment on above: Performed By: #### L YTES, CREAT, PP, CBC, BUN #### [facility] [address] [place] [address] [place] CO2 [Moles/Vol] 25.1 mmol/L Normal 21.0-31.0 [facility] Comment on above: Performed By: #### L YTES, CREAT, PP, CBC, BUN #### [facility] [address] [place] [address] [place] Potassium [Moles/Vol] 3.9 mmol/L Normal 3.5-5.1 [facility] Comment on above: Performed By: #### L YTES, CREAT, PP, CBC, BUN #### [facility] [address] [place] [address] [place] Sodium [Moles/Vol] 139 mmol/L Normal 136-145 [facility] Comment on above: Performed By: #### L YTES, CREAT, PP, CBC, BUN #### [place] [address] [place] HCG,Qualitative Serumon 03-11 HCG,Qualitative Serum Negative Normal [facility] Comment on above: Result Comment: PERF ORMED BY: [place] [address] PATHOLOGIST RECREATION THERAPY DIRECTOR ZAKIYA NEGRETE M.D. Performed By: #### L YTES, CREAT, PP, CBC, BUN #### [address] Troponin I High Sensitivityo n 03-27-2023 Troponin I High Sensitivity 154.8 pg/mL Off scale high 0.0-15.0 [facility] Comment on above: Result Comment: Crit ical Result : Called to and read back by: MAYITO LOPEZ at: 03/27/2023 12:11:10 by:LFM PERFORMED BY: [place] [address] PATHOLOGIST RECREATION THERAPY DIRECTOR ZAKIYA NEGRETE M.D. Performed By: #### L YTES, CREAT, PP, CBC, BUN #### [address] Troponin I High Sensitivity 108.5 pg/mL Off scale high 0.0-15.0 [facility] Comment on above: Result Comment: Crit ical Result : Called to and read back by: DEWEY ATKINSON at: 03/27/2023 00:32:27 by:[id number] PERFORMED BY: [place] [address] PATHOLOGIST RECREATION THERAPY DIRECTOR ZAKIYA NEGRETE M.D. Performed By: #### L YTES, CREAT, PP, CBC, BUN #### [place] [id number] [place] Creatine Kinaseon 03-26-2023 CK [Catalytic activity/Vol] 79 U/L Normal 30-223 [facility] Comment on above: Performed By: #### L YTES, CREAT, PP, CBC, BUN #### [facility] [address] [place] [address] [facility] CK [Catalytic activity/Vol] 69 U/L Normal [facility] Comment on above: Performed By: #### H S TROP, CK #### [facility] [address] [place] [address] [place] CK [Catalytic activity/Vol] 62 U/L Normal [facility] Comment on above: Performed By: #### L YTES, CREAT, PP, CBC, BUN #### [facility] [address] [place] [address] [facility] ECG 12 lead ECGon 03-26-2023 ECG 12 lead ECG [place] [address] Electrocardiograph Report Signed Patient: Erika Downey MR#: [id number] [birth year] : 1990 Acct:[id number] Age/Sex: 32 / F ADM Date: 03/26/23 Loc: Room: [address] [place] [id number] Type: DIS INOo Attending Dr: Jaqueline Hardy [...] : 445 ms Sinus rhythm with short NM Otherwise normal ECG No previous ECGs available Confirmed by JESENIA GOFF MD ([id number]) on 03/27/2023 9:49:56 PM Referred By: HOSP Electronically Signed By:JESENIA GOFF MD Transcribed By: MUS Signed By Jesenia Goff MD 0534 Normal [facility] ECH echo transthoracicon [facility] echo transthoracic [place] [address] Echocardiogram Signed Patient: Erika Downey MR#: [id number] [birth year] : 1990 Acct:[id number] Age/Sex: 32 / F ADM Date: 03/26/23 Loc: Room: 5X6605-4 Type: ADM IN Attending Dr: Jaqueline Hardy MD Ordering Provider: Jaqueline Hardy MD Date of Service: 03/26/23 ECH/ECH echo transthoracic: chest pain Copies to: MD [...] By: Sylvia Myers MD 03/26/23 1511 Normal [facility] Lipid Panelon 03-26-2023 Cholesterol [Mass/Vol] 193 mg/dL Normal 140-200 [facility] Comment on above: Result Comment: Chol less than 200 mg/dl low risk Chol 201-239 mg/dl borderline risk Chol 240 mg/dl and greater high risk Performed By: #### L YTES, CREAT, PP, CBC, BUN #### [address] Cholesterol in HDL [Mass/Vol] 40 mg/dL Normal 23-92 [facility] Comment on above: Result Comment: HDL CHOL ATP-III CLASSIFICATION Cardiovascular Risk HDL > or equal to 60 mg/dL LOW HDL < 40 mg/dL HIGH Performed By: #### L YTES, CREAT, PP, CBC, BUN #### [address] Cholesterol.total/ Cholesterol in HDL [Mass ratio] 4.8 {ratio} Normal <5.0 [facility] Comment on above: Result Comment: PERF ORMED BY: [place] [address] PATHOLOGIST RECREATION THERAPY DIRECTOR ZAKIYA NEGRETE M.D. Performed By: #### L YTES, CREAT, PP, CBC, BUN #### [address] LDL Cholesterol,Calcul ated 116 mg/dL High 0-100 [facility] Comment on above: Result Comment: LDL ATP III CLASSIFICATION LDL less than 100 mg/dL Optimal LDL 100-129 mg/dL Near or above optimal LDL 130-159 mg/dL Borderline high LDL 160-189 mg/dL High LDL greater than 189 mg/dL Very high Performed By: #### L YTES, CREAT, PP, CBC, BUN #### [address] Triglyceride w/Reflex 185 mg/dL High 0-149 [facility] Comment on above: Result Comment: TRIG ATP III CLASSIFICATION TRIG less than 150 mg/dL Normal TRIG 150-199 mg/dL Borderline high TRIG 200-500 mg/dL High TRIG greater than 500 mg/dL Very high Standard traceable to the Center for Disease Conrtrol and Prevention (CDC) test method. Performed By: #### L YTES, CREAT, PP, CBC, BUN #### [address] VLDL CHOLESTEROL 37 mg/dL Normal [facility] Comment on above: Performed By: #### L YTES, CREAT, PP, CBC, BUN #### [facility] [address] [place] [address] [place] Troponin I High Sensitivityo n 03-26-2023 Troponin I High Sensitivity 131.7 pg/mL Off scale high 0.0-15.0 [facility] Comment on above: Result Comment: Crit ical Result : Called to and read back by: MAYITO LOPEZ at: 03/26/2023 18:35:20 by:LFM PERFORMED BY: [place] [address] PATHOLOGIST RECREATION THERAPY DIRECTOR ZAKIYA NEGRETE M.D. Performed By: #### L YTES, CREAT, PP, CBC, BUN #### [address] Troponin I High Sensitivity 122.6 pg/mL Off scale high 0.0-15.0 [facility] Comment on above: Result Comment: Crit ical Result : Called to and read back by: MAYITO LOPEZ at: 03/26/2023 15:22:27 by:LFM PERFORMED BY: [place] [address] PATHOLOGIST RECREATION THERAPY DIRECTOR ZAKIYA NEGRETE M.D. Performed By: #### H S TROP, CK #### [address] Troponin I High Sensitivity 113.8 pg/mL Off scale high 0.0-15.0 [facility] Comment on above: Result Comment: Crit ical Result : Called to and read back by: ELEONORA KRISHNAN at: 03/26/2023 13:34:41 by:LFM PERFORMED BY: [place] [address] PATHOLOGIST RECREATION THERAPY DIRECTOR ZAKIYA NEGRETE M.D. Performed By: #### L YTES, CREAT, PP, CBC, BUN #### [facility] [address] [place] [address] [place] COVID + FLU Quick Testingon 03-23-2023 SARS-CoV-2 (COVID-19) RNA CARLOTA+probe Ql (Unsp spec) Negative [employer] Other COVID + FLU Quick Testing Negative [employer] Other PAP ACOG PANEL 2: 30 to 65on 11-20-2022 . . Normal [facility] Comment on above: Result Comment: Perf ormed at: WB Performed By: #### [id number] #### [facility] [address] [address] [address] Sathish Pascal Age Gdln ACOG Testing 30-65 Normal [facility] Comment on above: Performed By: #### [id number] #### [facility] [address] [address] [address] Sathish Pascal DIAGNOSIS: Comment Normal [facility] Comment on above: Result Comment: NEGA TIVE FOR INTRAEPITHELIAL LESION OR MALIGNANCY. Performed at: WB Performed By: #### [id number] #### [facility] [address] [place] [address] Dr. Sathish Pascal HPV Aptima Negative Normal Negative [facility] Comment on above: Result Comment: This nucleic acid amplification test detects fourteen high-risk HPV types (16,18,31,33,35,39,45,51,52,56,58,59,66,68) without differentiation. Performed at: =G Performed By: #### [id number] #### [facility] [address] [address] [address] Sathish Pascal HPV Genotype Reflex Comment Normal [facility] Comment on above: Result Comment: Crit eria not met, HPV Genotype not performed. Performed at: WB Performed By: #### [id number] #### [facility] [address] [address] [address] Sathish Pascal Methodology: Comment [facility] Comment on above: Result Comment: This liquid based ThinPrep(R) pap test was screened with the use of an image guided system. Performed at: WB Performed By: #### [id number] #### [facility] [address] [place] [address] Dr. Sathish Pascal Note: Comment Normal [facility] Comment on above: Result Comment: The Pap smear is a screening test designed to aid in the detection of premalignant and malignant conditions of the uterine cervix. It is not a diagnostic procedure and should not be used as the sole means of detecting cervical cancer. Both false-positive and false-negative reports do occur. . Performed at: WB Performed By: #### [id number] #### [facility] [address] [address] [address] Sathish Pascal Performed by: Comment Normal [facility] Comment on above: Result Comment: Lily Alvarez, Telehealth Director (ASCP) Performed at: WB Performed By: #### [id number] #### [facility] [address] [address] [address] Sathish Pascal Specimen adequacy: Comment Normal [facility] Comment on above: Result Comment: Sati sfactory for evaluation. Endocervical and/or squamous metaplastic cells (endocervical component) are present. Performed at: WB Performed By: #### [id number] #### [facility] [address] [place] [address] Dr. Sathish Pascal HCG ( test) IA.rapi d Ql (U)Ordered By: Vikash Carmona on 09-24-2022 HCG ( test) Ql (U) Negative [facility] HCG,Urineon 09-24-2022 Beta HCG ( test) Ql (U) Negative Normal [facility] Comment on above: Result Comment: PERF ORMED BY: [place] [address] PATHOLOGIST RECREATION THERAPY DIRECTOR ZAKIYA NEGRETE M.D. Performed By: #### L YTES, CREAT, PP, CBC, BUN #### [facility] [address] CBC AUTO DIFFon 05-02-2022 BASO # 0.0 103/ul Normal 0.0-0.1 [facility] Comment on above: Performed By: #### C BC #### [facility] [address] [address] [address] Sathish Pascal Basophils/100 WBC (Bld) 0.3 % Normal 0.2-2.0 [facility] Comment on above: Performed By: #### C BC #### [facility] [address] [address] [address] Sathish Pascal EO # 0.1 103/ul Normal 0.0-0.7 [facility] Comment on above: Performed By: #### C BC #### [facility] [address] [place] [address] Dr. Sathish Pascal Eosinophils/100 WBC (Bld) 1.4 % Normal 0.9-7.0 [facility] Comment on above: Performed By: #### C BC #### [facility] [address] [place] [address] Dr. Sathish Pascal Erythrocyte distribution width (RBC) [Ratio] 12.5 % Normal 11.0-15.0 [facility] Comment on above: Performed By: #### C BC #### [facility] [address] [place] [address] Dr. Sathish Pascal Hematocrit (Bld) [Volume fraction] 47.9 % Normal 36.0-48.0 [facility] Comment on above: Performed By: #### C BC #### [facility] [address] [place] [address] Dr. Sathish Pascal Hemoglobin (Bld) [Mass/Vol] 15.5 g/dL Normal 12.0-16.0 [facility] Comment on above: Performed By: #### C BC #### [facility] [address] [place] [address] Dr. Sathish Pascal IG # 0.02 10e3/ul Normal 0.00-0.03 [facility] Comment on above: Performed By: #### C BC #### [facility] [address] [place] [address] Dr. Sathish Pascal IG % 0.2 % Normal 0.0-0.5 [facility] Comment on above: Performed By: #### C BC #### [facility] [address] [place] [address] Dr. Sathish Pascal LYMPH # 2.6 103/ul Normal 1.2-3.8 [facility] Comment on above: Performed By: #### C BC #### [facility] [address] [place] [address] Dr. Sathish Pascal Lymphocytes/100 WBC (Bld) 27.6 % Normal 20.5-60.0 [facility] Comment on above: Performed By: #### C BC #### [facility] [address] [place] [address] Dr. Sathish Pascal MANUAL DIFF REQ NO Normal [facility] Comment on above: Performed By: #### C BC #### [facility] [address] [place] [address] Dr. Sathish Pascal MCH (RBC) [Entitic mass] 29.0 pg Normal 26.7-34.0 [facility] Comment on above: Performed By: #### C BC #### [facility] [address] [place] [address] Dr. Sathish Pascal MCHC (RBC) [Mass/Vol] 32.4 g/dL Normal 29.9-35.2 [facility] Comment on above: Performed By: #### C BC #### [facility] [address] [place] [address] Dr. Sathish Pascal MCV (RBC) [Entitic vol] 89.5 fL Normal 81.0-99.0 [facility] Comment on above: Performed By: #### C BC #### [facility] [address] [place] [address] Dr. Sathish Pascal MONO # 0.7 103/ul Normal 0.3-0.8 [facility] Comment on above: Performed By: #### C BC #### [facility] [address] [place] [address] Dr. Sathish Pascal Monocytes/100 WBC (Bld) 7.4 % Normal 1.7-12.0 [facility] Comment on above: Performed By: #### C BC #### [facility] [address] [place] [address] Dr. Sathish Pascal NEUT # 5.8 103/ul Normal 1.4-6.5 [facility] Comment on above: Performed By: #### C BC #### [facility] [address] [place] [address] Dr. Sathish Pascal Neutrophils/100 WBC (Bld) 63.1 % Normal 43.0-75.0 [facility] Comment on above: Performed By: #### C BC #### [facility] [address] [place] [address] Dr. Sathish Pascal Platelet mean volume (Bld) [Entitic vol] 9.7 fL Normal 9.5-13.5 [facility] Comment on above: Performed By: #### C BC #### [facility] [address] [place] [address] Dr. Sathish Pascal PLT 337 103/ul Normal 150-450 [facility] Comment on above: Performed By: #### C BC #### [facility] [address] [place] [address] Dr. Sathish Pascal RBC 5.35 106/ul Normal 4.20-5.40 [facility] Comment on above: Performed By: #### C BC #### [facility] [address] [place] [address] Dr. Sathish Pascal WBC 9.3 103/ul Normal 4.0-11.0 [facility] Comment on above: Performed By: #### C BC #### [facility] [address] [place] [address] Dr. Sathish Pascal D-DIMERon 05-02-2022 D-DIMER 0.45 mg/L FEU Normal <=0.59 [facility] Comment on above: Performed By: #### D DIM #### [facility] [address] [place] [address] Dr. Sathish Pascal D-DIMER COMMENTS SEE BELOW Normal [facility] Comment on above: Result Comment: Incr eases [...] hospitalization. Performed By: #### D DIM #### [facility] [address] [place] [address] Dr. Sathish Pascal LIPASEon 05-02-2022 Lipase [Catalytic activity/Vol] 315.0 U/L Normal 73.0-393.0 [facility] Comment on above: Performed By: #### H STROPN, CMP, LIPA #### [facility] [address] [place] [address] Dr. Sathish Pascal PREG HCG QUALon 05-02-2022 , QUAL Negative Normal NEGATIVE [facility] Comment on above: Performed By: #### P REG #### [facility] [address] [place] [address] Dr. Sathish Pascal PROF 14(COMP METB)on 022 Albumin [Mass/Vol] 4.2 g/dL Normal 3.4-5.0 [facility] Comment on above: Performed By: #### H STROPN, CMP, LIPA #### [facility] [address] [place] [address] Dr. Sathish Pascal Albumin/Globulin [Mass ratio] 0.9 {ratio} Normal [facility] Comment on above: Performed By: #### H STROPN, CMP, LIPA #### [facility] [address] [place] [address] Dr. Sathish Pascal ALP [Catalytic activity/Vol] 83 U/L Normal 46-116 [facility] Comment on above: Performed By: #### H STROPN, CMP, LIPA #### [facility] [address] [place] [address] Dr. Sathish Pascal ALT [Catalytic activity/Vol] 27 U/L Normal 14-59 [facility] Comment on above: Performed By: #### H STROPN, CMP, LIPA #### [facility] [address] [place] [address] Dr. Sathish Pascal Anion gap [Moles/Vol] 11.1 mmol/L Normal [facility] Comment on above: Performed By: #### H STROPN, CMP, LIPA #### [facility] [address] [address] [address] Sathish Pascal AST [Catalytic activity/Vol] 16 U/L Normal 15-37 [facility] Comment on above: Performed By: #### H STROPN, CMP, LIPA #### [facility] [address] [address] [address] Sathish Pascal Bilirubin [Mass/Vol] 0.5 mg/dL Normal 0.2-1.0 [facility] Comment on above: Performed By: #### H STROPN, CMP, LIPA #### [facility] [address] [address] [address] Sathish Pascal Calcium [Mass/Vol] 9.2 mg/dL Normal 8.5-10.1 [facility] Comment on above: Performed By: #### H STROPN, CMP, LIPA #### [facility] [address] [address] [address] Sathish Pascal Chloride [Moles/Vol] 102 mmol/L Normal 98-107 [facility] Comment on above: Performed By: #### H STROPN, CMP, LIPA #### [facility] [address] [address] [address] Sathish Pascal CO2 [Moles/Vol] 26.6 mmol/L Normal 21.0-32.0 [facility] Comment on above: Performed By: #### H STROPN, CMP, LIPA #### [facility] [address] [address] [address] Sathish Pascal Creatinine [Mass/Vol] 0.70 mg/dL Normal 0.55-1.02 [facility] Comment on above: Performed By: #### H STROPN, CMP, LIPA #### [facility] [facility] [address] [address] [address] Sathish Pascal EGFR-AF DUTCH >60 Normal >=60 [facility] Comment on above: Performed By: #### H STROPN, CMP, LIPA #### [facility] [address] [address] [address] Sathish Pascal EGFR-NON AF DUTCH >60 Normal >=60 [facility] Comment on above: Performed By: #### H STROPN, CMP, LIPA #### [facility] [address] [address] [address] Sathish Pascal Globulin (S) [Mass/Vol] 4.5 g/dL Normal [facility] Comment on above: Performed By: #### H STROPN, CMP, LIPA #### [facility] [address] [address] [address] Sathish Pascal Glucose [Mass/Vol] 96 mg/dL Normal 74-106 [facility] Comment on above: Performed By: #### H STROPN, CMP, LIPA #### [facility] [address] [place] [address] Dr. Sathish Pascal Potassium [Moles/Vol] 3.7 mmol/L Normal 3.5-5.1 [facility] Comment on above: Performed By: #### H STROPN, CMP, LIPA #### [facility] [address] [address] [address] Sathish Pascal Protein [Mass/Vol] 8.7 g/dL Critically high 6.4-8.[address] [facility] Comment on above: Performed By: #### H STROPN, CMP, LIPA #### [facility] [address] [place] [address] Dr. Sathish Pascal Sodium [Moles/Vol] 136 mmol/L Normal 136-145 [facility] Comment on above: Performed By: #### H STROPN, CMP, LIPA #### [facility] [address] [place] [address] Dr. Sathish Pascal Urea nitrogen [Mass/Vol] 7.0 mg/dL Normal 7.0-18.0 [facility] Comment on above: Performed By: #### H STROPN, CMP, LIPA #### [facility] [address] [place] [address] Dr. Sathish Pascal Urea nitrogen/Creatinin e [Mass ratio] 10.0 mg/mg Normal [facility] Comment on above: Performed By: #### H STROPN, CMP, LIPA #### [facility] [address] [place], [place] [address] Dr. Sathish Pascal TROPONIN, HIGH SENSITIVITYon 05-02-2022 HSTROP 4.9 pg/mL Normal 4.0-51.3 [facility] Comment on above: Result Comment: CUT- OFF POINTS HAVE BEEN ESTABLISHED BASED ON THE FOURTH UNIVERSAL DEFINITIONS OF MYOCARDIAL INFARCTION. THE UPPER REFERENCE LIMIT (URL) OF TROPONIN, DEFINED THE 99TH PERCENTILE OF cTnI DISTRIBUTION IN A REFERENCE POPULATION, HAS BEEN CONFIRMED THE DECISION THRESHOLD FOR HI DIAGNOSIS. Performed By: #### H STROPN, CMP, LIPA #### [facility] [address] [place], [place] [address] Dr. Sathish Pascal XR CHEST 2 Von [...] CAREN HURT Date: 2022-05-02 20:11 Normal [facility] COVID + FLU Quick Testingon 03-03-2022 SARS-CoV-2 (COVID-19) RNA CARLOTA+probe Ql (Unsp spec) Negative [employer] Other COVID + FLU Quick Testing Negative [employer] Other COVID Quick Testingon 2021 Result Negative [employer] Other Quick Fluon 10-11-2021 FLUAV Ab CF (S) [Titer] Negative [employer] Other FLUBV Ab CF (S) [Titer] Negative [employer] Other COVID Quick Testingon 2021 Result Negative [employer] Other Quick Fluon 09-06-2021 FLUAV Ab CF (S) [Titer] Negative [employer] Other FLUBV Ab CF (S) [Titer] Negative [employer] Other Quick Fluon 07-24-2021 FLUAV Ab CF (S) [Titer] Negative [employer] Other FLUBV Ab CF (S) [Titer] Negative [employer] Other CNOVon 11-24-2018 CNOV Office Visit (PAINMN ) ----- ERIKA DOWNEY ([id number]) 1990 F Date Time Provider Department 11/24/18 11:45 AM KASSANDRA LORD During your visit today, we recorded the following information about you: Pulse Respiration Blood pressure Weight 85/minute 18/minute 107/78 59 kg Height Last Period 1.6 m 11/14/18 Rambo Castro DO 11/24/2018 12:40 PM Addendum Recommendation [...] 28 year old who presents to [facility] Department for a follow up [...] Drug Use: No Occupation: Employed- works at [employer] Review of Systems: GENERAL: No weight loss, [...] abdominal discomfort, nausea, vomiting GENITOURINARY: Not reviewed 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 Author Type: Physician Type: Progress Notes Filed: 11/25/2018 2:32 PM Note Text: Chronic Pain Clinic Follow-Up Evaluation Date: November 24, 2018 - 12:49 PM Chief Complaint: headache and left eye pain SUBJECTIVE: Erika Downey is a 28 year old who presents to [facility] Department for a follow up [...] Drug Use: No Occupation: Employed- works at [employer] Review of Systems: GENERAL: No weight loss, [...] abdominal discomfort, nausea, vomiting GENITOURINARY: Not reviewed [employer] SCHO[employer] ART TEACHER: Not reviewed MUSCULOSKELETAL: neck pain NEUROLOGIC: Positive [...] MD November 25, 2018 2:32 PM Normal [facility] CNCOon 11-20-2018 CNCO Letter Text Normal [facility] CNOVon 11-20-2018 CNOV Office Visit (LANCE ) ----- NASREENERIKA ([id number]) 1990 F Date Time Provider Department 11/20/18 [...] anesthesia where the following was noted: Erika Nasreen is a 28 year old female who presents to [facility] with a chief [...] Pharmacy Refill Daily Dose * 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 Author Type: [...] year old female who presents to [facility] with a chief [...] clinic and then she was referred to [facility]. 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 Madalyn Johnson MD [facility] CNPNon 10-01-2018 CNPN Telephone (PAINMN) ----- ERIKA DOWNEY ([id number]) 1990 F Date Time Provider Department 10/01/18 [...] images have been obtained ?Zahida Priest PA-C, MELBA 10/02/2018 8:46 AM Signed MRI from 1 year ago is sufficient. Patient can schedule OV to review the images and bring the CD with her. DELANO Barba RN 10/02/2018 11:28 AM Signed Patient notified. Zahida Andersen RN Allergies As of Date: 10/01/2018 (No Known Allergies) Date Reviewed: 09/24/2018 Reviewed by: Erika Burch DRESSAGE JUDGE - Fully Assessed Reason for Visit: Treatment [...] Encounter Status:Closed by MILLICENT PRIEST on 10/02/18 [facility] CNOVon 09-24-2018 CNOV Office Visit (PAINMN ) ----- ERIKA DOWNEY ([id number]) 1990 F Date Time Provider Department 09/24/18 [...] Alek Dodd This consult was requested by lAek Dodd for my medical opinion. My final recommendations will be communicated to the referring physician by way of the shared medical record for internal providers or by letter via the [employer] for external providers. Chief Complaint: Headache and left eye pain History of Present Illness: Erika Downey is a 28 year old female who presents to [facility] with a chief [...] clinic and then she was referred to [facility]. Tried gabapentin in the past but did [...] Drug Use: Not on file Occupation: Employed- [employer]. Psychiatric History: No Allergies: ALLERGIES No Known [...] as occipital neuralgia and was referred to [facility] for a second opinion. She has been [...] regimen for now. Referring Provider: ALEK DODD [[id number]] Allergies As of Date: 09/24/2018 (No Known [...] by KASSANDRA LORD MD on 09/24/18 Normal [facility] PROGRESSon 09-24-2018 Protein mass conc HNO ID: [id number] Author: Kassandra Lrod Service: (none) Author Type: Physician Type: Progress [...] internal providers or by letter via the [employer] for external providers. Chief Complaint: Headache and left eye pain History of Present Illness: Erkia Downey is a 28 year old female who presents to [facility] with a chief [...] as occipital neuralgia and was referred to [facility] for a second opinion. 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 - MARGINS APPEAR NEGATIVE FOR INVOLVEMENT.Thierry Dykes M.D.Electronically Signed [employer]/3/7/2018Clinical InformationPre-op Diagnosis: LESION/NEVUS, PREVIOUS BIOPSY [facility], 07/16/2017, [id number], DX: COMPOUND NEVUSWITH AREAS OF MODERATE DISARRAY, [...] There is no evidence of malignancy. Normal [facility] Vital Signs Date Time Vital Sign Value Performing Clinician Facility 09-30-2023 11:28-0500 Body height 160 cm Monet Ruiz APRNCasaHop Work Phone: [facility] 09-30-2023 11:28-0500 Body mass index (BMI) [Ratio] 23.91 kg/m2 Monet Ruiz APRNCasaHop Work Phone: [facility] 09-30-2023 11:28-0500 Body weight 61.24 kg Monet Ruiz APRNCasaHop Work Phone: [facility] 09-30-2023 11:28-0500 Diastolic blood pressure 74 mm[Hg] Monet Ruiz APRNCasaHop Work Phone: [facility] 09-30-2023 11:28-0500 Systolic blood pressure 134 mm[Hg] Monet Ruiz DRYING MACHINE OPERATOR-LIBRARY CIRCULATION DEPARTMENT CHIEF Work Phone: [facility] 09-05-2023 10:59-0500 Body height 160 cm Sylvia Myers MD Work Phone: [facility] 09-05-2023 10:59-0500 Body mass index (BMI) [Ratio] 23.56 kg/m2 Sylvia Myers MD Work Phone: [facility] 09-05-2023 10:59-0500 Body weight 60.33 kg Sylvia Myers MD Work Phone: [facility] 09-05-2023 10:59-0500 Diastolic blood pressure 80 mm[Hg] Sylvia Myers MD Work Phone: [facility] 09-05-2023 10:59-0500 Heart rate 85 /min Sylvia Myers MD Work Phone: [facility] 09-05-2023 10:59-0500 Systolic blood pressure 118 mm[Hg] Sylvia Myers MD Work Phone: [facility] 08-20-2023 10:01-0500 Body height 160 cm Monet Ruiz DRYING MACHINE OPERATOR-LIBRARY CIRCULATION DEPARTMENT CHIEF Work Phone: [facility] 08-20-2023 10:01-0500 Body mass index (BMI) [Ratio] 23.91 kg/m2 Monet Ruiz DRYING MACHINE OPERATOR-LIBRARY CIRCULATION DEPARTMENT CHIEF Work Phone: [facility] 08-20-2023 10:01-0500 Body weight 61.24 kg Monet Ruiz DRYING MACHINE OPERATOR-LIBRARY CIRCULATION DEPARTMENT CHIEF Work Phone: [facility] 08-20-2023 10:01-0500 Diastolic blood pressure 94 mm[Hg] Monet Ruiz DRYING MACHINE OPERATOR-LIBRARY CIRCULATION DEPARTMENT CHIEF Work Phone: [facility] 08-20-2023 10:01-0500 Heart rate 90 /min Monet Ruiz DRYING MACHINE OPERATOR-LIBRARY CIRCULATION DEPARTMENT CHIEF Work Phone: [facility] [employer] [facility] 08-20-2023 10:01-0500 Systolic blood pressure 137 mm[Hg] Monet Ruiz DRYING MACHINE OPERATOR-LIBRARY CIRCULATION DEPARTMENT CHIEF Work Phone: [facility] [employer] [facility] 08-07-2023 08:59-0500 Body height 160 cm Bhavin Astudillomaria a PA Work Phone: [facility] [employer] 08-07-2023 08:59-0500 Body mass index (BMI) [Ratio] 23.91 kg/m2 Bhavin Nienberg PA Work Phone: [facility] [employer] 08-07-2023 08:59-0500 Body weight 61.24 kg Bhavin Nienberg PA Work Phone: [facility] [employer] 08-07-2023 08:59-0500 Diastolic blood pressure 89 mm[Hg] Bhavin Nienberg PA Work Phone: [facility] [employer] 08-07-2023 08:59-0500 Heart rate 94 /min Bhavin Nienberg PA Work Phone: [facility] [employer] 08-07-2023 08:59-0500 Respiratory rate 18 /min Bhavin Nienberg PA Work Phone: [facility] [employer] 08-07-2023 08:59-0500 SaO2% (BldA) [Mass fraction] 99 % Bhavin Nienberg PA Work Phone: [facility] [employer] 08-07-2023 08:59-0500 Systolic blood pressure 111 mm[Hg] Bhavin Nienberg PA Work Phone: [employer] 03-23-2023 14:20-0400 Body height 160.02 cm Eleonora Santos Other [employer] Other 03-23-2023 14:20-0400 Body mass index (BMI) [Ratio] 24.27 kg/m2 Eleonora Santos Other [employer] Other 03-23-2023 14:20-0400 Body temperature 98.7 [degF] Eleonora Danielle Other [employer] Other 03-23-2023 14:20-0400 Body weight 62.14 kg Eleonora Danielle Other [employer] Other 03-23-2023 14:20-0400 Diastolic blood pressure 71 mm[Hg] Eleonora Danielle Other [employer] Other 03-23-2023 14:20-0400 Respiratory rate 18 /min Eleonora Danielle Other [employer] Other 03-23-2023 14:20-0400 SaO2% (BldA) [Mass fraction] 98 % Eleonora Danielle Other [employer] Other 03-23-2023 14:20-0400 Systolic blood pressure 101 mm[Hg] Eleonorachristoph Santos Other [employer] Other 11-12-2022 14:00-0400 Body height 160.02 cm Jose Casey Other [employer] Other 11-12-2022 14:00-0400 Body mass index (BMI) [Ratio] 24.44 kg/m2 Jose Casey Other [employer] Other 11-12-2022 14:00-0400 Body weight 62.6 kg Jose Casey Other [employer] Other 11-12-2022 14:00-0400 Diastolic blood pressure 60 mm[Hg] Jose Casey Other [employer] Other 11-12-2022 14:00-0400 Systolic blood pressure 90 mm[Hg] Jose Casey Other [facility] [employer] Other 09-24-2022 14:48-0500 Diastolic blood pressure 63 mm[Hg] MD Irma Toledo Work Phone: [facility] 09-24-2022 14:48-0500 Heart rate 87 /min MD Irma Toledo Work Phone: [facility] 09-24-2022 14:48-0500 Respiratory rate 16 /min MD Irma Toledo Work Phone: [facility] 09-24-2022 14:48-0500 SaO2% (BldA) [Mass fraction] 99 % MD Irma Toledo Work Phone: [facility] 09-24-2022 14:48-0500 Systolic blood pressure 113 mm[Hg] MD Irma Toledo Work Phone: [facility] 09-24-2022 13:53-0500 Body height 160.02 cm MD Irma Toledo Work Phone: [facility] 09-24-2022 13:53-0500 Body weight 65.77 kg MD Irma Toledo Work Phone: [facility] 04-08-2022 14:00-0400 Body height 160.02 cm Vikash Carmona Other [employer] Other 04-08-2022 14:00-0400 Body mass index (BMI) [Ratio] 26.21 kg/m2 Vikash Carmona Other [employer] Other 04-08-2022 14:00-0400 Body weight 67.13 kg Vikash Carmona Other [employer] Other 04-08-2022 14:00-0400 Diastolic blood pressure 75 mm[Hg] Vikash Carmona Other [employer] Other 04-08-2022 14:00-0400 Systolic blood pressure 114 mm[Hg] Vikash Carmona Other [employer] Other 03-03-2022 10:40-0400 Body height 160.02 cm Carla Palafox Other [employer] Other 03-03-2022 10:40-0400 Body mass index (BMI) [Ratio] 25.68 kg/m2 Carla Quintanillamond Other [employer] Other 03-03-2022 10:40-0400 Body temperature 98.7 [degF] Carla Palafox Other [employer] Other 03-03-2022 10:40-0400 Body weight 65.77 kg Carla Palafox Other [employer] Other 03-03-2022 10:40-0400 SaO2% (BldA) [Mass fraction] 96 % Carla Palafox Other [employer] Other 11-12-2021 16:15-0400 Body height 160.02 cm Haley Wilhelm Other [employer] Other 11-12-2021 16:15-0400 Body mass index (BMI) [Ratio] 24.8 kg/m2 Haley Wilhelm Other [employer] Other 11-12-2021 16:15-0400 Body temperature 97.5 [degF] Haley Wilhelm Other [employer] Other 11-12-2021 16:15-0400 Body weight 63.5 kg Haley Wilhelm Other [employer] Other 11-12-2021 16:15-0400 Respiratory rate 18 /min Haley Wilhelm Other [employer] Other 11-12-2021 16:15-0400 SaO2% (BldA) [Mass fraction] 98 % Haley Wilhelm Other [employer] Other 10-11-2021 19:45-0500 Body height 160.02 cm Haley Wilhelm Other [employer] Other 10-11-2021 19:45-0500 Body mass index (BMI) [Ratio] 24.8 kg/m2 Haley Wilhelm Other [employer] Other 10-11-2021 19:45-0500 Body temperature 98.3 [degF] Haley Wilhelm Other [employer] Other 10-11-2021 19:45-0500 Body weight 63.5 kg Haley Wilhelm Other [employer] Other 10-11-2021 19:45-0500 Respiratory rate 18 /min Haley Wilhelm Other [employer] Other 10-11-2021 19:45-0500 SaO2% (BldA) [Mass fraction] 99 % Haley Wilhelm Other [employer] Other 09-06-2021 10:15-0500 Body height 160.02 cm Ama Schrader Other [employer] Other 09-06-2021 10:15-0500 Body mass index (BMI) [Ratio] 25.15 kg/m2 Ama Schrader Other [employer] Other 09-06-2021 10:15-0500 Body temperature 98 [degF] Ama Schrader Other [employer] Other 09-06-2021 10:15-0500 Body weight 64.41 kg Ama Schrader Other [employer] Other 09-06-2021 10:15-0500 Respiratory rate 18 /min Ama Schrader Other [employer] Other 09-06-2021 10:15-0500 SaO2% (BldA) [Mass fraction] 99 % Ama Schrader Other [employer] Other 07-24-2021 13:00-0500 Body height 160.02 cm Lorie Funes Other [employer] Other 07-24-2021 13:00-0500 Body mass index (BMI) [Ratio] 24.8 kg/m2 Lorie Funes Other [employer] Other 07-24-2021 13:00-0500 Body temperature 99.8 [degF] Lorie Funes Other [employer] Other 07-24-2021 13:00-0500 Body weight 63.5 kg Lorie Funes Other [employer] Other 07-24-2021 13:00-0500 SaO2% (BldA) [Mass fraction] 98 % Lorie Funes Other [employer] Other Encounters Encounter Date Encounter Type Care Provider Facility Start: 01-08-2024 End: 01-08-2024 ambulatory BHAVIN DODD [facility] Start: 12-24-2023 End: 12-24-2023 ambulatory DILCIA KEITH Not Available Start: 12-20-2023 End: 12-20-2023 ambulatory CAREN WU [facility] Start: 12-19-2023 End: 12-20-2023 ambulatory [facility] Start: 12-04-2023 End: 12-04-2023 ambulatory BHAVIN William [facility] Start: 11-20-2023 End: 11-20-2023 ambulatory DILCIA KEITH Not Available Start: 11-15-2023 End: 11-15-2023 ambulatory CATIE William IBETH [facility] Start: 11-14-2023 End: 11-15-2023 ambulatory [facility] Start: 11-12-2023 Telephone encounter Yanira Vaughn RN [facility] Start: 11-07-2023 End: 11-10-2023 ambulatory [facility] Start: 11-06-2023 Telephone encounter Puja PARK [facility] Start: 10-28-2023 End: 10-28-2023 ambulatory BEBETO [place] Not Available Start: 10-08-2023 End: 10-08-2023 ambulatory DILCIA KEITH Not Available Start: 10-07-2023 Telephone encounter Eleonora Garcia CMA [facility] Start: 10-03-2023 End: 10-03-2023 Evaluation and management of inpatient MILO CHAKRABORTY [facility] Start: 10-02-2023 End: 10-03-2023 Evaluation and management of inpatient LIN TELLO [facility] Start: 09-30-2023 End: 10-01-2023 ambulatory SETH SIERRA Not Available Start: 09-30-2023 End: 10-01-2023 ambulatory SETH SIERRA [facility] Start: 09-30-2023 End: 09-30-2023 ambulatory [facility] Start: 09-30-2023 End: 09-30-2023 Office outpatient visit 15 minutes Monetgaudencio Cornejooll DRYING MACHINE OPERATOR-LIBRARY CIRCULATION DEPARTMENT CHIEF Work Phone: [facility] Comment on above: Abdominal bloating ( Primary Dx); Generalized abdominal pain Start: 09-23-2023 Telephone encounter Amy [facility] Start: 09-15-2023 Orders Only Lin baumann DO Work Phone: [facility] In Comment on above: Abdominal bloating ( Primary Dx); Epigastric pain Start: 09-12-2023 End: 09-12-2023 Evaluation and management of inpatient MILO Jonathan PALMER [facility] Start: 09-11-2023 End: 09-12-2023 Evaluation and management of inpatient LIN TELLO [facility] Start: 09-05-2023 End: 09-05-2023 Office outpatient visit 25 minutes Sylvia Myers MD Work Phone: [facility] Comment on above: Other chest pain (Pr imary Dx); Myopericarditis; Palpitations; BMI 23.0-23.9, adult; Anxiety; Never smoked any substance Start: 09-05-2023 End: 09-05-[address] [facility] Start: 09-04-2023 End: 09-04-2023 ambulatory [facility] Pat Phone Call Provider 1 [facility] - Pre Admit Start: 08-20-2023 End: 08-20-2023 ambulatory [facility] Start: 08-20-2023 End: 08-20-2023 Office outpatient new 30 minutes Monetgaudencio Cornejooll DRYING MACHINE OPERATOR-LIBRARY CIRCULATION DEPARTMENT CHIEF Work Phone: [facility] Comment on above: Abdominal bloating ( Primary Dx); Nausea in adult; Gastroesophageal reflux disease, unspecified whether esophagitis present; Epigastric pain Start: 08-07-2023 End: 08-07-2023 ambulatory BHAVIN DODD [facility] Start: 08-07-2023 End: 08-07-2023 Office outpatient visit 15 minutes Bhavin S Marylu PA Work Phone: [facility] Comment on above: Bilateral occipital neuralgia (Primary Dx) Start: 06-05-2023 End: 06-06-2023 [facility] [address] [facility] Start: 06-05-2023 End: 06-05-2023 Subsequent hospital visit by physician Dutch Osuna [facility]in Comment on above: Palpitations Start: 04-11-[address] Irma Toledo Facility:[id number] Start: 03-27-[address] Sylvia Myers Facility:[id number] Start: 03-27-[address] Irma Toledo Facility:[id number] Start: 03-26-[address] Irma Toledo Facility:[id number] Start: 03-26-2023 End: 03-27-2023 ambulatory Irma Yoder Facility:[facility] Start: 03-26-[address] Irma Toledo Facility:[id number] Start: 03-23-2023 End: 03-23-2023 ambulatory Eleonora Santos Other [employer] Other Start: 03-23-2023 Office outpatient visit 15 minutes Eleonora Santos [facility] Start: 11-13-2022 End: 11-13-[address] LALITA MCCRAY . Facility:[facility] Start: 11-12-2022 End: 11-12-2022 ambulatory Jose Casey Other [employer] Other Start: 11-12-2022 Office outpatient visit 15 minutes Jose Casey [facility] Neurosurgery Start: 11-04-2022 End: 11-04-2022 ambulatory Vikash Carmona Other [facility] [employer] Other Start: 11-04-2022 Telephone encounter Vikash BRODERICK [facility] Gastroenterology Start: 10-31-2022 End: 10-31-2022 ambulatory Vikash Carmona Other [employer] Other Start: 10-31-2022 Telephone encounter Vikash BRODERICK G Palliative Care Start: 10-30-2022 End: 10-30-2022 ambulatory Vikash Carmona Other [employer] Other Start: 10-30-2022 Telephone encounter Vikash BRODERICK G Gastroenterology Start: 10-17-2022 End: 10-17-2022 ambulatory Vikash Carmona Other [employer] Other Start: 10-17-2022 Telephone encounter Vikash BRODERICK G Gastroenterology Start: 09-24-2022 End: 09-24-2022 ambulatory Irma Toledo Facility:[facility] Start: 09-24-2022 End: 09-24-2022 Admission to same day surgery center MD Irma Toledo Work Phone: [facility] Work Phone: Start: 09-24-2022 End: 09-24-2022 ambulatory MD Irma Toledo Work Phone: [facility] Work Phone: Start: 05-02-2022 End: 05-02-[address] IRMA TOLEDO Facility: Start: 04-25-2022 End: 04-25-2022 ambulatory Vikash Carmona Other [employer] Other Start: 04-25-2022 Telephone encounter Vikash BRODERICK [facility] Gastroenterology Start: 04-08-2022 End: 04-08-2022 ambulatory Vikash Carmona Other [employer] Other Start: 04-08-2022 [facility] visit new patient Vikash Carmona [facility] Start: 03-03-2022 End: 03-03-2022 ambulatory Carla Palafox Other [employer] Other Start: 03-03-2022 Office outpatient visit 15 minutes Carla Vivienne [facility] Start: 11-12-2021 End: 11-12-2021 ambulatory Haley Wilhelm Other [employer] Other Start: 11-12-2021 Office outpatient visit 15 minutes Haley Wilhelm [facility] Start: 10-11-2021 End: 10-11-2021 ambulatory Haley Wilhelm Other [employer] Other Start: 10-11-2021 Office outpatient visit 15 minutes Haley Wilhelm [facility] Start: 09-06-2021 End: 09-06-2021 ambulatory Ama Schrader Other [employer] Other Start: 09-06-2021 Office outpatient visit 15 minutes Ama Schrader [facility] Start: 07-24-2021 End: 07-24-2021 ambulatory Lorie Funes Other [employer] Other Start: 07-24-2021 Office outpatient visit 15 minutes Lorie Funes [facility] Start: 11-24-2018 End: 11-25-2018 Patient encounter procedure KASSANDRA LORD [facility] Start: 11-20-2018 End: 11-24-2018 Patient encounter procedure MADALYN JOHNSON [facility] Start: 09-24-2018 End: 09-24-2018 Patient encounter procedure KASSANDRA LORD [facility] Start: 10-14-2017 End: 10-15-2017 [facility] Procedures Date Procedure Procedure Detail Performing Clinician Start: 09-05-2023 ECG 12-LEAD SYLVIA MYERS Start: 09-05-2023 Ecg routine ecg w/least 12 lds w/i&r Sylvia Myers MD Work Phone: Start: 06-05-2023 [employer] SUPPLY OFFICER SYLVIA MYERS Start: 06-05-2023 Xtrnl pt activtd ecg dwnld w/r&i 30 days Sylvia Myers MD Work Phone: Start: 09-24-2022 Esophagogastroduodenoscopy MD Irma guerra Work Phone: Plan of Treatment Date Care Activity Detail Author Start: 2038 Zoster Vaccines (1 of 2) Zoster Vaccines (1 of 2) [facility] Start: 10-02-2024 Adult BMI Screening Adult BMI Screening [facility] Start: 10-02-2024 Tobacco Screening Tobacco Screening [facility] Start: 09-30-2024 Adult BMI Screening Adult BMI Screening [facility] Start: 09-30-2024 Tobacco Screening Tobacco Screening [facility] Start: 09-11-2024 Adult BMI Screening Adult BMI Screening [facility] Start: 09-11-2024 Tobacco Screening Tobacco Screening [facility] Start: 08-26-2024 Tobacco Screening Tobacco Screening [facility] Start: 08-20-2024 Adult BMI Screening Adult BMI Screening [facility] Start: 08-20-2024 Tobacco Screening Tobacco Screening [facility] Start: 08-07-2024 Adult BMI Screening Adult BMI Screening [facility] Start: 08-07-2024 Tobacco Screening Tobacco Screening [facility] Start: 04-11-2024 Influenza vaccination Influenza Vaccine [facility] Start: 03-12-2024 End: 03-12-2024 Patient encounter procedure 03/12/2024 10:10 AM EDT Of fice Visit [facility] [address] [facility] [address] [place] [address] Sylvia Myers MD [address] [facility] [address] [place] [address] [facility] Start: 12-23-2023 End: 12-23-2023 Patient encounter procedure 12/23/2023 3:15 PM EDT Off ice Visit [facility] [address] [place] [id number] Bhavin Dodd PA [address] [place] [address] [facility] Start: 12-05-2023 End: 12-05-2023 Admission to same day surgery center 12/05/2023 7:20 AM EDT - 12/05/2023 7:27 AM EDT Surgery [facility] [address] [place] [id number] Harsh Gallego MD [address] [place] [id number] INJECTION BLOCK NERVE OCCIPITAL [12042 (CPT )] [facility] Comment on above: INJECTION BLOCK NERVE OCCIPITAL [74540 ( CPT )] Start: 12-05-2023 End: 12-05-2023 Injection aa&/strd greater occipital nerve INJECTION BLOCK NERVE OCCIPITAL Bilateral occipital neuralgia 12/05/2023 7:20 AM EDT [facility] Start: 12-05-2023 Subsequent hospital visit by physician 12/05/2023 7:20 AM EDT Hospital Encounter [facility] [address] [place] [phone] Harsh Gallego MD [address] [place] [place], [place] [id number] [facility] Start: 12-04-2023 End: 12-04-2023 Patient encounter procedure 12/04/2023 12:45 PM EDT Of fice Visit [facility] [address] [place] [address] Bhavin Dodd, [address] [place] [address] [facility] Start: 11-14-2023 End: 11-14-2023 Injection aa&/strd greater occipital nerve INJECTION BLOCK NERVE OCCIPITAL Bilateral occipital neuralgia 11/14/2023 12:16 PM EDT [facility] Start: 11-14-2023 End: 11-14-2023 Patient encounter procedure 11/14/2023 11:05 AM EDT Appointment [facility] [address] [place] [address] Harsh Gallego MD [address] [place] [address] [facility] Start: 11-07-2023 Subsequent hospital visit by physician 11/07/2023 Hospital Encounter [facility] [address] [place] [address] Harsh Gallego MD [address] [place] [address] [facility] Start: 11-07-2023 End: 11-07-2023 Patient encounter procedure 11/07/2023 9:10 AM EDT Appointment [facility] [address] [place] [address] Harsh Gallego MD [address] [place] [address] [facility] Start: 10-02-2023 End: 10-02-2023 Admission to same day surgery center 10/02/2023 10:45 AM EST - 10/02/2023 11:[address] [facility] [address] [place] [phone] Lin Tello, DO [address] [place] [address] COLONOSCOPY DIAGNOSTIC / SCREENING [90201 (CPT )] [facility] Comment on above: COLONOSCOPY DIAGNOSTIC / SCREENING [4537 8 (CPT )] Start: 10-02-2023 End: 10-02-2023 Anesthesia consultation 10/02/2023 10:45 AM EST An[address] Event [facility] [address] [place] [phone] Milo Chakraborty, DO [address] [facility] [place] [address] [facility] Start: 10-02-2023 End: 10-02-2023 Colonoscopy flx dx w/collj spec when pfrmd COLONOSCOPY DIAGNOSTIC / SCREENING abdominal bloating 10/02/2023 10:45 AM [facility] Start: 10-02-2023 Subsequent hospital visit by physician 10/02/2023 10:45 AM EST Hospital Encounter [facility] [address] [place] [phone] Lin Tello, DO [address] [place] [address] [facility] Start: 09-25-2023 End: 09-25-2023 ambulatory 09/25/2023 1:40 PM EST Suppo rt Visit [facility] Pre Admit [address] [place] [phone] [facility] Start: 09-11-2023 End: 09-11-2023 Admission to same day surgery center 09/11/2023 9:30 AM EST - 09/11/2023 10:00 AM EST Surgery [facility] [address] [place] [phone] Lin Tello, DO [address] [place] [address] ESOPHAGOGASTRODUODENOSCOPY DIAGNOSTIC [41245 (CPT )] [facility] Comment on above: ESOPHAGOGASTRODUODENOSCOPY DIAGNOSTIC [4 3235 (CPT )] Start: 09-11-2023 End: 09-11-2023 Anesthesia consultation 09/11/2023 9:30 AM EST Anesthesia Event [facility] [address] [place] [address] Milo Chakraborty, DO [address] [facility] [place] [address] [facility] Start: 09-11-2023 End: 09-11-2023 Esophagogastroduodenoscopy transoral diagnostic ESOPHAGOGASTRODUODENOSCOPY DIAGNOSTIC gastroesophageal reflux, nausea, epigastric pain 09/11/2023 9:30 AM EST [place] [facility] Start: 09-11-2023 Subsequent hospital visit by physician 09/11/2023 9:30 AM EST Hospital Encounter [facility] [address] [place] [address] Lin Tello, DO [address] [place] [address] [facility] Start: 09-05-2023 End: 09-05-2023 Patient encounter procedure 09/05/2023 10:50 AM EST Of fice Visit [place] [address] [facility] [address] [place] [address] Sylvia Myers MD [address] [place] [address] [address] [place] [address] [facility] Start: 09-04-2023 End: 09-04-2023 ambulatory 09/04/2023 3:00 PM EST Suppo rt Visit [facility] Pre [facility] [address] [place] [address] [facility] Start: 04-11-2023 COVID-19 Vaccine ( season) COVID-19 Vaccine ( season) [facility] Start: 04-11-2023 Influenza vaccination [facility] Start: 09-24-2022 [facility] Start: 02-23-2021 COVID-19 Vaccine (2 - Pfizer risk series) COVID-19 Vaccine (2 - Pfizer risk series) [facility] Start: 03-05-2011 DTaP,Tdap and Td Vaccines (6 - Tdap) DTaP,Tdap and Td Vaccines (6 - Tdap) [facility] Start: 03-05-2011 DTaP/Tdap/Td Vaccines (6 - Tdap) DTaP/Tdap/Td Vaccines (6 - Tdap) [facility] Start: 2009 Screening for malignant neoplasm of cervix [facility] Start: 2006 Hepatitis C screening Hepatitis C Screening [facility] Start: 04-02-2001 Varicella vaccination Varicella Vaccines (1 of 2 - 2-dose childhood series) [facility] Start: 2000 Depression Screening Depression Screening [facility] Start: 1988 Hepatitis B Vaccines (1 of 3 - 3-dose series) Hepatitis B Vaccines (1 of 3 - 3-dose series) [facility] Start: 1988 HIV screening HIV Screening [facility] Start: 1988 Lipid panel Lipid Panel [facility] Start: 1988 Yearly Adult Physical Yearly Adult Physical [facility] End: 09-14-2024 Colonoscopy Colonoscopy GI Routine Abdominal bloating Epigastric pain 1 Occurrences starting 09/15/2023 until 09/14/2024 [facility] Work Phone: Comment on above: 1 Occurrences starting 09/15/2023 until 09/14/2024 End: 08-20-2024 Esophagogastroduodenoscopy EGD GI Routine Nausea in ad ult Gastroesophageal reflux disease, unspecified whether esophagitis present Epigastric pain 1 Occurrences starting 08/20/2023 until 08/20/2024 [facility] Work Phone: Comment on above: 1 Occurrences starting 08/20/2023 until 08/20/2024 Injection aa&/strd g reater occipital nerve INJECTION BLOCK NERVE OCCIPITAL Bilateral occipital neuralgia [facility] INJECTION BLOCK NERVE INJECTION BLOCK NERVE Bilateral occipital neuralgia [facility] [employer] Payers Date Payer Category Payer Self-pay [id number] 2020 Private Health Insurance [id number] 1988 Unknown [id number] 2.16.84 0.1.724256.3.579.2.593 1988 Unknown [id number] 2.16.84 0.1.242954.3.579.2.593 1988 Unknown [id number] 2.16. 840.1.047671.3.579.2.356 1988 Unknown [id number] 2.16. 840.1.230849.3.579.2.356 1988 Unknown [id number] 2.16. 840.1.104533.3.579.2.356 1988 Unknown [id number] 2.16. 840.1.207078.3.579.2.356 1988 Unknown [id number] 2.16. 840.1.111284.3.579.2.356 1988 Unknown [id number] 2.16.84 0.1.789671.3.579.2.1245 1988 Unknown [id number] 2.16.8 40.1.095746.3.579.2.1285 1988 Unknown [id number] 2.16.84 0.1.290411.3.579.2.1285 1988 Unknown [id number] 2.16.84 0.1.745763.3.579.2.1258 1988 Unknown [id number] 2.16.84 0.1.624883.3.579.2.1258 1988 Unknown [id number] 2.16.84 0.1.117976.3.579.2.1258 1988 Unknown [id number] 2.16.84 0.1.820045.3.579.2.1258 1988 Unknown [id number] 2.16.84 0.1.601634.3.579.2.1258 1988 Unknown [id number] 2.16.8 40.1.243488.3.579.2.1285 1988 Unknown [id number] 2.16.8 40.1.130492.3.579.2.1285 1988 Unknown [id number] 2.16.8 40.1.643403.3.579.2.1285 1988 Unknown [id number] 2.16.8 40.1.453499.3.579.2.1285 1988 Unknown [id number] 2.16.8 40.1.314051.3.579.2.1285 1988 Unknown [id number] 2.16.8 40.1.916759.3.579.2.1285 1988 Unknown [id number] 2.16.8 40.1.524762.3.579.2.1285 1988 Unknown [id number] 2.16.8 40.1.876593.3.579.2.1285 1988 Unknown [id number] 2.16.8 40.1.055333.3.579.2.1285 1988 Unknown [id number] 2.16.8 40.1.283600.3.579.2.1285 1988 Unknown [id number] 2.16.8 40.1.491180.3.579.2.1285 1988 Unknown [id number] 2.16.8 40.1.327384.3.579.2.1285 1988 Unknown [id number] 2.16.8 40.1.550645.3.579.2.1285 1988 Unknown [id number] 2.16.8 40.1.786258.3.579.2.1285 1988 Unknown [id number] 2.16.8 40.1.224696.3.579.2.1285 1988 Unknown [id number] 2.16.8 40.1.805307.3.579.2.1285 1988 Unknown [id number] 2.16.8 40.1.035114.3.579.2.1285 1988 Unknown [id number] 2.16.8 40.1.456851.3.579.2.1285 1988 Unknown [id number] 2.16.8 40.1.719670.3.579.2.1285 1988 Unknown [id number] 2.16.8 40.1.703687.3.579.2.1285 1988 Unknown [id number] 2.16.8 40.1.733475.3.579.2.1285 1988 Unknown [id number] 2.16.8 40.1.977075.3.579.2.1285 1988 Unknown [id number] 2.16.8 40.1.968259.3.579.2.1285 1988 Unknown [id number] 2.16.84 0.1.968569.3.579.2.1285 1988 Unknown [id number] 2.16.8 40.1.279290.3.579.2.1244 1959 Unknown [id number] 1959 Unknown [id number] Unknown [id number] 2.16.8 40.1.520350.3.579.2.531 Unknown [id number] 2.16.8 40.1.808776.3.579.2.531 Social History Date Type Detail Facility Unknown if ever smoked [employer] Other Start: 09-21-2020 End: 08-07-2023 Sex Assigned At [facility] Start: 09-24-2022 End: 11-19-2022 Tobacco smoking status NHIS Never smoked tobacco (finding) [facility] Start: 1990 Sex Assigned At Female [facility] Work Phone: Start: 1990 Sex Assigned At Not on file [facility] Work Phone: Start: 11-19-2022 End: 09-05-2023 Tobacco use and exposure Smokeless tobacco non-user [facility] Start: 08-07-2023 End: 10-03-2023 Alcohol intake Current drinker of alcohol (finding) [facility] Start: 09-21-2020 End: 08-07-2023 History of Social function [facility] Adolescent depressio n screening assessment 0 [facility] Start: 02-02-2021 Alcohol Comment rarely [facility] Start: 09-05-2023 Alcohol Comment rare [facility] Work Phone: Start: 08-26-2023 End: 09-05-2023 Exposure to SARS-CoV-2 (event) Not sure [facility] Goals Date Patient Goal Desired Activity /State Clinical Notes 07-24-2021 to 11-12-2023 Telephone Encounter - Yanira Vaughn RN - 11/12/2023 9:27 AM EDTTelephone Encounter - Yanira Vaughn RN - 11/12/2023 9:27 AM EDTDamirgaudencio Ruiz, DRYING MACHINE OPERATOR-LIBRARY CIRCULATION DEPARTMENT CHIEF - 09/30/2023 11:15 AM EST Note Date & Type Note Facility 11-12-2023 Miscellaneous Notes Patient calls today to report that she will seeing her neurologist and getting Ajovy injection. Patient asks if the Ajovy injection will interfere with the NB. This has been addressed in the past and patient may proceed with Ajovy injection and occipital nerve block as scheduled. documented in this encounter [facility] 11-12-2023 Telephone encounter Note Patient calls today to report that she will seeing her neurologist and getting Ajovy injection. Patient asks if the Ajovy injection will interfere with the NB. This has been addressed in the past and patient may proceed with Ajovy injection and occipital nerve block as scheduled. [facility] 11-06-2023 Miscellaneous Notes Erika called to reschedule her procedure. She is having a dental procedure 11/06. Erika chose to wait until 12/04 and will call if her pain is out of control and needs to be scheduled sooner than that. Her follow up appointment is 12/22 noted documented in this encounter [facility] 11-06-2023 Telephone encounter Note Erika called to reschedule her procedure. She is having a dental procedure 11/06. Erika chose to wait until 12/04 and will call if her pain is out of control and needs to be scheduled sooner than that. Her follow up appointment is 12/22 [facility] 11-06-2023 Telephone encounter Note noted [facility] 10-07-2023 Miscellaneous Notes ----- Message from Lin Tello DO sent at 10/07/2023 7:07 AM EST ----- Please let her know that all biopsies were completely negative. She may follow up p.r.n.. ThanksDr. Vega Spoke with patient regarding pathology results. Patient verbally understood. Patient did have a question regarding allergic reactions to omeprazole but was consulted by her PCP and Pharmacist. Recall will be put into chart. documented in this encounter [facility] 10-07-2023 Telephone encounter Note ----- Message from Lin Tello DO sent at 10/07/2023 7:07 AM EST ----- Please let her know that all biopsies were completely negative. She may follow up p.r.n.. ThanksDr. Vega [facility] 10-07-2023 Telephone encounter Note Spoke with patient regarding pathology results. Patient verbally understood. Patient did have a question regarding allergic reactions to omeprazole but was consulted by her PCP and Pharmacist. Recall will be put into chart. [facility] 09-30-2023 History of Present illness Narrative Images [...] 10/24/2017 Performed by Harsh Gallego MD at [facility] CARDIAC SURGERY 03/2023 catherization ESOPHAGOGASTRODUODENOSCOPY DIAGNOSTIC N/A 09/11/2023 Performed by Lin Tello DO at [facility] INJECTION BLOCK NERVE Bilat Occipital Bilateral 06/22/2021 Performed by Harsh Gallego MD at [facility] INJECTION BLOCK NERVE MEDIAL BRANCH: right L 4/5 5/1 Right 08/24/2021 Performed by Harsh Gallego MD at [facility] INJECTION BLOCK NERVE MEDIAL BRANCH: right L 4/5 5/ Right 04/12/2022 Performed by Harsh Gallego MD at [facility] INJECTION BLOCK NERVE MEDIAL BRANCH: bilat L45 51 Bilateral 06/20/2023 Performed by Harsh Gallego MD at [facility] INJECTION BLOCK NERVE OCCIPITAL Bilateral 05/26/2020 Performed by Harsh Gallego MD at [facility] INJECTION BLOCK NERVE OCCIPITAL Bilateral 03/24/2020 Performed by Harsh Gallego MD at [facility] INJECTION BLOCK NERVE OCCIPITAL Bilateral 11/27/2018 Performed by Harsh Gallego MD at [facility] INJECTION BLOCK NERVE OCCIPITAL: bilat Bilateral 04/10/2018 Performed by Harsh Gallego MD at [facility] INJECTION BLOCK NERVE OCCIPITAL: bilat Bilateral 12/19/2017 Performed by Harsh Gallego MD at [facility] INJECTION BLOCK NERVE: bilat occipital Bilateral 05/10/2022 Performed by Harsh Gallego MD at [facility] INJECTION BLOCK SACROILIAC JOINT Bilateral 12/06/2022 Performed by Harsh Gallego MD at [facility] INJECTION MEDIAL BRANCH NERVE BLOCK BILATERAL C2/3,3/4 Bilateral 11/28/2017 Performed by Harsh Gallego MD at [facility] MOLE REMOVAL 10/14/2017 NASAL SURGERY TRANSUMBILICAL AUGMENTATION MAMMAPLASTY 2012 WISDOM TOOTH EXTRACTION 2005, 2013, 2017 Allergies Allergen Reactions Covid-19 Vacc,Mrna(DrinkWiser)(Pf) Anaphylaxis Throat tightness Iodinated Contrast Media Nausea Can have if given bendryl Pregabalin Dizziness Current Outpatient Medications: AJOVY AUTOINJECTOR 225 mg/1.5 mL auto-injector, Inject 1.5 mL (225 mg total) under the skin every 30 (thirty) days., Disp: , Rfl: [id number] (REFRESH OPTIVE ADVANCED) 0.5-1-0.5 % drops, Administer [...] patient/family/caregiver Referring and communicating with other health farm or ranch animal caretaker Abdominal bloating [R14.0] LINDSAY BANDA [facility] [place] This note was created with the assistance of a speech recognition program. While intending to generate a timely document that accurately reflects the content of the visit, no guarantee can be provided that every grammatical or spelling mistake has been or will be identified or corrected. Thank you for your understanding. LINDSAY Banda 09/30/23 1244 documented in this encounter [facility] 09-23-2023 Miscellaneous Notes This patient called with [...] this encounter [facility] Telephone encounter Note This patient called [...] Dr Tello [facility] [employer] [employer] [facility] [employer] 09-23-2023 Telephone encounter Note I was unable to answer all of the questions she had. She had am multitude of questions so I Thought it'd be best for her to come in and speak with our Nurse Practitioner, Monet Ruiz CNP. She has her appointment on 09/30/23 [facility] 09-05-2023 History of Present illness Narrative Subjective [...] every 30 (thirty) days., Disp: , Rfl: [id number] 0.5-1-0.5 % drops, Administer 1 drop into [...] By signing my name below, Ivelisse Smith Marcello JONES , Scribe attest that this documentation has been prepared under the direction and in the presence of Sylvia Myers MD. documented in this encounter [facility] Work Phone: 09-05-2023 Instructions Sandi Canada CMA [...] of your visit. documented in this encounter [facility] Work Phone: 09-04-2023 Nurse Note Preoperative Education Checklist- General Surgery date: 09/11/23 Surgery time: 9a Arrival time: 7a 1. Bring a photo ID and your insurance card with you the day of surgery. You will check in at the main lobby of the [facility]- registration desk is straight ahead as soon as you walk in. Tell them you are here for surgery. 2. If you have a Living Will/Durable Power of Newspaper Journalist for Health Care that is not on [...] after you have bathed. 5. NO nail taiwanese/acrylic on at least one finger. If you are having a hand, wrist or foot surgery then all nail taiwanese and artificial/acrylic nails must be removed from [...] please call the Preadmission Testing office at [phone], Mon.-Fri. 7 a.m.-3 p.m. Leave a voicemail if needed. Pre-Surgery Instructions: Medication Instructions clotrimazole-betamethasone (LOTRISONE) cream Stop taking 0 days prior to procedure valACYclovir (VALTREX) 500 mg tablet Stop taking 0 days prior to procedure AJOVY AUTOINJECTOR 225 mg/1.5 mL auto-injector Check with prescribing doctor for instructions [id number]-[id number] (REFRESH OPTIVE ADVANCED) 0.5-1-0.5 % drops Stop [...] Stop taking 0 days prior to procedure [facility] tamyca [facility] 09-04-2023 Miscellaneous Notes Preoperative Education Checklist- General Surgery date: 09/11/23 Surgery time: 9a Arrival time: 7a 1. Bring a photo ID and your insurance card with you the day of surgery. You will check in at the main lobby of the [facility]- registration desk is straight ahead as soon as you walk in. Tell them you are here for surgery. 2. If you have a Living Will/Durable Power of Newspaper Journalist for Health Care that is not on [...] after you have bathed. 5. NO nail taiwanese/acrylic on at least one finger. If you are having a hand, wrist or foot surgery then all nail taiwanese and artificial/acrylic nails must be removed from [...] please call the Preadmission Testing office at [phone], Mon.-Fri. 7 a.m.-3 p.m. Leave a voicemail if needed. Pre-Surgery Instructions: Medication Instructions clotrimazole-betamethasone (LOTRISONE) cream Stop taking 0 days prior to procedure valACYclovir (VALTREX) 500 mg tablet Stop taking 0 days prior to procedure AJOVY AUTOINJECTOR 225 mg/1.5 mL auto-injector Check with prescribing doctor for instructions [id number] (REFRESH OPTIVE ADVANCED) 0.5-1-0.5 % drops Stop [...] prior to procedure documented in this encounter [facility] 08-20-2023 History of Present illness Narrative Images [...] end of June she went to the [facility]. She states she had labs and [...] 10/24/2017 Performed by Harsh Gallego MD at [facility] INJECTION BLOCK NERVE Bilat Occipital Bilateral 06/22/2021 Performed by Harsh Gallego MD at [facility] INJECTION BLOCK NERVE MEDIAL BRANCH: right L 4/5 5/1 Right 08/24/2021 Performed by Harsh Gallego MD at [facility] INJECTION BLOCK NERVE MEDIAL BRANCH: right L 4/5 5/1 Right 04/12/2022 Performed by Harsh Gallego MD at [facility] INJECTION BLOCK NERVE MEDIAL BRANCH: bilat L45 51 Bilateral 06/20/2023 Performed by Harsh Gallego MD at [facility] INJECTION BLOCK NERVE OCCIPITAL Bilateral 05/26/2020 Performed by Harsh Gallego MD at [facility] INJECTION BLOCK NERVE OCCIPITAL Bilateral 03/24/2020 Performed by Harsh Gallego MD at [facility] INJECTION BLOCK NERVE OCCIPITAL Bilateral 11/27/2018 Performed by Harsh Gallego MD at [facility] INJECTION BLOCK NERVE OCCIPITAL: bilat Bilateral 04/10/2018 Performed by Harsh Gallego MD at [facility] INJECTION BLOCK NERVE OCCIPITAL: bilat Bilateral 12/19/2017 Performed by Harsh Gallego MD at [facility] INJECTION BLOCK NERVE: bilat occipital Bilateral 05/10/2022 Performed by Harsh Gallego MD at [facility] INJECTION BLOCK SACROILIAC JOINT Bilateral 12/06/2022 Performed by Harsh Gallego MD at [facility] INJECTION MEDIAL BRANCH NERVE BLOCK BILATERAL C2/3,3/4 Bilateral 11/28/2017 Performed by Harsh Gallego MD at [facility] MOLE REMOVAL 10/14/2017 NASAL SURGERY TRANSUMBILICAL AUGMENTATION MAMMAPLASTY 2012 WISDOM TOOTH EXTRACTION 2005, 2014, 2017 Allergies Allergen Reactions Covid-19 Vacc,Mrna(Pfizer)(Pf) Anaphylaxis Throat tightness Iodinated Contrast Media Nausea Can have if given bendryl Pregabalin Dizziness Current Outpatient Medications: AJOVY AUTOINJECTOR 225 mg/1.5 mL auto-injector, , Disp: , Rfl: [id number] (REFRESH OPTIVE ADVANCED) 0.5-1-0.5 % drops, Administer [...] patient/family/caregiver Referring and communicating with other health farm or ranch animal caretaker Abdominal bloating [R14.0] LINDSAY BANDA [facility] General Surgery [place] This note was created with the assistance of a speech recognition program. While intending to generate a timely document that accurately reflects the content of the visit, no guarantee can be provided that every grammatical or spelling mistake has been or will be identified or corrected. Thank you for your understanding. LINDSAY Banda 08/20/23 1124 documented in this encounter [facility] 08-07-2023 History of Present illness Narrative [facility] [address] [place] [address] Patient: Erika Downey Sex: female : 1990 Age: 33 [...] relief), NSAIDs (Naproxen, Diclofenac, Ibuprofen 800 mg), [place], BioFreeze, eye drops w/ slight relief. Ajovy [...] 10/24/2017 Performed by Harsh Gallego MD at [facility] INJECTION BLOCK NERVE Bilat Occipital Bilateral 06/22/2021 Performed by Harsh Gallego MD at [facility] INJECTION BLOCK NERVE MEDIAL BRANCH: right L 4/5 5/1 Right 08/24/2021 Performed by Harsh Gallego MD at [facility] INJECTION BLOCK NERVE MEDIAL BRANCH: right L 4/5 5/ Right 04/12/2022 Performed by Harsh Gallego MD at [facility] INJECTION BLOCK NERVE MEDIAL BRANCH: bilat L45 51 Bilateral 06/20/2023 Performed by Harsh Gallego MD at [facility] INJECTION BLOCK NERVE OCCIPITAL Bilateral 05/26/2020 Performed by Harsh Gallego MD at [facility] INJECTION BLOCK NERVE OCCIPITAL Bilateral 03/24/2020 Performed by Harsh Gallego MD at [facility] INJECTION BLOCK NERVE OCCIPITAL Bilateral 11/27/2018 Performed by Harsh Gallego MD at [facility] INJECTION BLOCK NERVE OCCIPITAL: bilat Bilateral 04/10/2018 Performed by Harsh Gallego MD at [facility] INJECTION BLOCK NERVE OCCIPITAL: bilat Bilateral 12/19/2017 Performed by Harsh Gallego MD at [facility] INJECTION BLOCK NERVE: bilat occipital Bilateral 05/10/2022 Performed by Harsh Gallego MD at [facility] INJECTION BLOCK SACROILIAC JOINT Bilateral 12/06/2022 Performed by Harsh Gallego MD at [facility] INJECTION MEDIAL BRANCH NERVE BLOCK BILATERAL C2/3,3/4 Bilateral 11/28/2017 Performed by Harsh Gallego MD at [facility] MOLE REMOVAL 10/14/2017 NASAL SURGERY TRANSUMBILICAL AUGMENTATION [...] Ray 08/07/23 1554 documented in this encounter [facility] 08-07-2023 Instructions Erika Wilhelm CNA - 08/07/2023 [...] a safety precaution, you must have a tank wagon driver after a lumbar nerve root injection, even [...] back to normal. documented in this encounter [facility] 06-05-2023 Note Indication: Palpitat ion and tachycardia [...] tachycardia. Rare PACs and PVCs were seen [facility] 03-23-2023 Evaluation note Encounter Date Diagnosis [...] worsening symptoms. Rapid COVID and influenza negative. [employer] Other 04-04-2023 Evaluation note* Encounter Date Diagnosis [...] of right sacroiliac joint (ICD-10 - M46.1) [employer] Other 03-15-2023 History general Narrative - Reported* [...] mental health hospita lizations, no suicide attempts [employer] [facility] Encounter Date Diagnosis Assessment Notes Treatment Notes Treatment Clinical Notes Mar, Globus sensation (ICD-10 - F45.8) Mar, Dysphagia (ICD-10 - R13.10) Mar, GERD (gastroesophageal reflux disease) (ICD-10 - K21.9) [employer] Other 07-24-2022 Evaluation note* Encounter Date Diagnosis [...] no improvement in 2 to 3 days. [employer] Other 07-12-2022 History general Narrative - Reported* [...] mental health hospita lizations, no suicide attempts [employer] Other 04-04-2022 Evaluation note* Encounter Date Diagnosis Assessment Notes Treatment Notes Treatment Clinical Notes Nov, Contact with and (suspected) exposure to other viral communicable diseases (ICD-10 - Z20.828) Nov, Viral URI (ICD-10 - J06.9) Advised patient that rapid COVID, rapid Strep, and Influenza A/B test was negative today in office. Will send in rx of [place] to use as directed, may take Tylenol/Motrin [...] Patient care instructions given in writting by [employer] [facility] document [employer] Other 03-15-2022 History general Narrative - Reported* [...] mental health hospita lizations, no suicide attempts [employer] Other 03-03-2022 Evaluation note* Encounter Date Diagnosis [...] Patient care instructions given in writting by [employer] [facility] document [employer] Other 01-27-2022 Evaluation note* Encounter Date Diagnosis [...] Patient care instructions given in writting by [employer] [facility] document. [employer] Other 12-14-2021 Evaluation note* Encounter Date Diagnosis [...] Patient care instructions given in writting by [employer] At Home document. [employer] Other Evaluation noteNo InformationNort [employer] Other Evaluation noteNo assessment information available [facility] Work Phone: Evaluation note* Diagnosis Palpitations documented in this encounter [facility] Work Phone: Evaluation note* Diagnosis Bilateral occipital neuralgia- Primary [facility] Diagnosis Abdominal bloating- Primary Flatulence, eructation, and gas pain Nausea in adult Gastroesophageal reflux disease, unspecified whether esophagitis present Epigastric pain Abdominal pain, epigastric [facility] Diagnosis Other chest pain- Primary Myopericarditis Palpitations BMI 23.0-23.9, adult Anxiety Anxiety state, unspecified Never smoked any substance documented in this encounter [facility] Work Phone: Evaluation note* Diagnosis Abdominal bloating- Primary Flatulence, eructation, and gas pain Epigastric pain Abdominal pain, epigastric [facility] Diagnosis Abdominal bloating- Primary Flatulence, eructation, and gas pain Generalized abdominal pain Abdominal pain, generalized [facility] Author Vikash Carmona [facility] September 24, 2022 2:09pm Note Date/Time September 24, 2022 2:09pm [facility] [address] [place] [address] Gastroenterology H&P Signed Patient: Erika Downey MR#: [id number] : 1990 Acct:[id number] Age/Sex: 32 / F Adm Date: 3 Loc: Room: Type: [facility] Attending Dr: Vikash Carmona MD Copies to: [...] <Electronically signed by Vikash Carmona MD> 09/24/22 1408 [facility] Work Phone: History general Narrative - [...] mental health hospita lizations, no suicide attempts [employer] Other Hospital Discharge instructions Additional Instructions DISCHARGE [...] problems. -Follow up with PCP. -Office number [phone].[facility] Work Phone: InstructionsNot on filedocumented in this encounter [facility] filedocumented in this encounter [facility]Not on filedocumented in this encounter [facility] on filedocumented in this encounter [facility]InstructionsNot on filedocumented in this encounter [facility]ructionsNot on filedocumented in this encounter [facility] SystemInstructionsNot on filedocumented in this encounter [facility] SystemReason for visit NarrativePATIENT HERE AT THE REQUEST OF DR. MULLIGAN FOR EVALUATION & TREATMENT OF GLOBUS SENSATION/LPRDNorth [employer] Other Summary Purpose Family History No Family [...] Epigastric pain Procedures Colonoscopy Lin Tello DO [address] [place] [address] Referral ID Status Reason Start Date Expiration Date V isits Requested Visits Authorized [id number] Pending Review 09/15/2023 09/14/2024 1 1 Specialty Diagnoses / Procedures Referred By Contac t Referred To Contact Diagnoses Other chest pain Palpitations Procedures ECG 12 Lead Sylvia Myers MD [address] [place] [address] [address], [address] [address] Referral ID Status Reason Start Date Expiration Date V isits Requested Visits Authorized [id number] Authorized 09/05/2023 09/04/2024 1 1 Specialty Diagnoses / Procedures Referred By Contac t Referred To Contact Cardiology Diagnoses Other chest pain Myopericarditis Procedures Follow Up In Cardiology Sylvia Myers MD 3 [facility] 2, [address] [address] Sylvia Myers MD [address] [place] [address] [address], [address] [address] Referral ID Status Reason Start Date Expiration Date V isits Requested Visits Authorized [id number] Authorized 09/05/2023 09/04/2024 1 1 Specialty Diagnoses / Procedures Referred By Chris burleson Referred To Contact Diagnoses Bilateral occipital neuralgia Procedures Case request operating room: INJECTION BLOCK NERVE: bilat occipital Bhavin Dodd, MEL[facility] [address] [place] [address] Referral ID Status Reason Start Date Expiration Date V isits Requested Visits Authorized [id number] Pending Review 08/07/2023 08/06/2024 1 1 Reason evaluate and tr eat Diagnosis 1 Sacroiliac dysfuncti on (M53.3) Diagnosis 2 Trochanteric bursiti s, unspecified laterality (M70.60) Referral Organization [facility] urosurgery Referring Provider First Name Jose Referring Provider Last Name Jacinto Referring Provider Specialty Neurologica l Surgery Referred Organization [facility] Referred Provider Jr. Gallego William Referred Address [address] [facility],[place], [place],[address] Referred Provider Specialty Pain Medicin e Referral Priority Routine General Notes Cari Moore 023 11:55:51 AM >Received today and waiting for office notes to be locked before sending referral Additional Source Comments INFORMATION SOURCE (unrecogn ized section and content) DATE CREATED AUTHOR 01/30/2018 [facility] DATE CREATED AUTHOR AUTHOR'S ORGANIZ ATION 11/26/2018 [facility] DATE CREATED AUTHOR AUTHOR'S ORGANIZ ATION 12/04/2022 [facility] DATE CREATED AUTHOR AUTHOR'S ORGANIZ ATION 04/12/2023 [facility] DATE CREATED AUTHOR AUTHOR'S ORGANIZ ATION 04/12/2023 [facility] DATE CREATED AUTHOR AUTHOR'S ORGANIZ ATION 06/11/2023 [facility] DATE CREATED AUTHOR AUTHOR'S ORGANIZ ATION 09/19/2023 [facility] DATE CREATED AUTHOR AUTHOR'S ORGANIZ ATION 10/07/2023 [facility] DATE CREATED AUTHOR AUTHOR'S ORGANIZ ATION 12/27/2023 [facility] DATE CREATED AUTHOR AUTHOR'S ORGANIZ ATION 01/09/2024 [facility] DATE CREATED AUTHOR AUTHOR'S ORGANIZ ATION 02/03/2024 [facility] REASON FOR VISIT (unrecogniz ed section and content) Specialty Diagnoses / Procedures Referred By Contac t Referred To Contact Cardiology Diagnoses Palpitations Procedures Legacy Holter or Cardiac Event Monitor Sylvia Myers MD [address] [facility] [address] [place] [address] [facility] [address] [facility] [place] [address] Referral ID Status Reason Start Date Expiration Date V isits Requested Visits Authorized [id number] Authorized 06/05/2023 06/04/2024 1 1 Reason Comments Back Pain Neck Pain Reason Comments Nausea Bloating, nausea aft er eating, abdominal pain Reason Comments Follow-up 4 months with EKG Specialty Diagnoses / Procedures Referred By Chris burleson Referred To Contact Diagnoses Other chest pain Palpitations Procedures ECG 12 Lead Sylvia Myers MD [address] [facility] [address] [place] [address] Referral ID Status Reason Start Date Expiration Date V isits Requested Visits Authorized [id number] Authorized 09/05/2023 09/04/2024 1 1 Reason Comments [...] Irma Toledo MD Primary Care Provider Active Java Lead Engineer Relationship Specialty Start Date End Date Irma Toledo MD [address] [place] [address] PCP - General 08/17/19 Java Lead Engineer Relationship Specialty Start Date End Date Irma Toledo MD [address] [place] [phone] PCP - General 09/30/14 Java Lead Engineer Relationship Specialty Start Date End Date Irma Toledo MD [address] [place] [address] PCP - General 09/30/14 Java Lead Engineer Relationship Specialty [place] [address] [place] [phone] PCP - General 08/17/19 Java Lead Engineer Relationship Specialty Start Date End Date Irma Toledo MD [address] PCP - General 09/30/14 Java Lead Engineer Relationship Specialty Start Date End Date Irma Toledo MD [address] [place] [address] PCP - General 09/30/14 Java Lead Engineer Relationship Specialty Start Date End Date Seth Sierra DO [address] [place] [address] PCP - General Family Medicine 09/30/23 Java Lead Engineer Relationship Specialty Start Date End Date Seth Sierra DO [address] [place] [id number] PCP - General Family Medicine 09/30/23 Java Lead Engineer Relationship Specialty Start Date End Date Seth Sierra DO [address] [place] [address] PCP - General Family Medicine 09/30/23 Java Lead Engineer Relationship Specialty Start Date End Date Seth Sierra DO [address] [place] [address] PCP - General Family Medicine 09/30/23 Java Lead Engineer Relationship Specialty Start Date End Date Seth Sierra [address] [place] [address] PCP - General Family Medicine 09/30/23 FOR RECORDS PERTAINING TO PATIENTS WHO [...] BE BASED ON THE PRIMARY CLINICAL RECORDS. [facility]. provides no warranty or guarantee of the accuracy or completeness of information in this document.
--- NOTE | 2024-02-08 18:01 | ECG_ITS ---
[facility] Test Date: 2024-02-08 Pat Name: TO SHELTON Department: Room: - Gender: Female Reading Aide: : 1990 Requested By: RAYNA HOBBS Order Number: [id number] Reading MD: TAWNYA CASEY Measurements Intervals Willard Rate: 90 P: 80 RI: 136 QRS: 86 QRSD: 90 T: 77 QT: 356 QTc: 404 Interpretive Statements 1100 Sinus rhythm 9110 normal ECG Compared to ECG 03/25/2023 23:56:07 Short RI interval no longer present Electronically Signed On 02-09-2024 22:14:01 EDT by TAWNYA CASEY
--- NOTE | 2024-02-08 18:01 | ED.GENADUL1 ---
HPI HPI - General Adult General Chief complaint: Weakness Stated complaint: Dizziness Time Seen by Provider: 02/08/24 17:50 Source: patient Mode of arrival: walk-in Limitations: no limitations History of Present Illness HPI narrative: Patient is a 33-year-old female who presents to the ER stating she feels weak and shaky, initially reported symptoms for the past 3 days but at bedside states she has been feeling this way for over a week and a half. She reports having a condition with her heart a year ago with discomfort and had elevated troponins which she thought were related to a viral illness. Patient denies having chest pain at this time but states she does get some chest discomfort with encapsulation from her breast augmentation surgery many years ago. Patient denies any shortness of breath states she has felt somewhat lightheaded and dizzy at times occasional room spinning. She had her ears irrigated by her family doctor. Patient notes she has had fluctuations in her blood pressure. She works at [employer] and has been off because of the symptoms. She denies any headache or visual disturbance. She denies any diarrhea. She appears mildly anxious but no distress at bedside. Patient was brought to the ER by her mother and father. Related Data Home Medications ?Medication ?Instructions ?Recorded ?Confirmed fremanezumab-vfrm 225 mg/1.5 mL 225 mg subcut 03/26/23 subcutaneous auto-injector (AjovAquaBlok) norethindrone 1 mg-ethinyl 1 tab PO DAILY 03/26/23 02/08/24 estradiol 35 mcg tablet (Nortrel) omeprazole 20 mg capsule,delayed 40 mg PO BID 03/26/23 02/08/24 release prednisolone acetate 1 % eye 1 drp ophthalmic (eye) Q12H 03/26/23 03/26/23 drops,suspension Previous Rx's ?Medication ?Instructions ?Recorded sucralfate 1 gram tablet (Carafate) 1 g PO TID #12 tabs 07/09/23 ondansetron HCl 4 mg tablet 4 mg PO Q6H PRN nausea and 02/08/24 vomiting #12 tabs Allergies Allergy/AdvReac Type Severity Reaction Status Date / Time Iodinated Contrast Media Allergy Severe Verified 07/09/23 18:25 Opioid HPI Opioid Management Most Recent Opioid Data: Last ED Pain Assessment 02/08/24 18:12 Review of Systems ROS Constitutional Reports: fatigue; Denies: fever, chills or change in weight Eyes Denies: change in vision or blurry vision Ears, nose, mouth, and throat Denies: throat pain, neck pain or throat swelling Cardiovascular Reports: chest pain (? breast implant encapsulation s/p seeing specialist. - chronic); Denies: palpitations or edema Respiratory Denies: shortness of breath or cough Gastrointestinal Reports: nausea; Denies: abdominal pain (occ epigastric), vomiting, diarrhea or constipation Genitourinary Denies: painful urination, urinary frequency or urinary urgency Musculoskeletal Denies: back pain, neck pain or extremity pain Integumentary/Breast Denies: rash, itching, redness or skin pain Neurological Reports: dizziness; Denies: headache, numbness in extremities, weakness in extremities or lack of coordination Psychiatric Reports: anxiety and panic attacks Endocrine Denies: excessive urination Allergic/Immunologic Denies: hives [facility] Medical History (Updated 02/08/24 @ 20:38 by MELBA Akers) Headache ?R51.9 - Headache, unspecified (ICD-10) Acid reflux disease ?K21.9 - Gastro-esophageal reflux disease without esophagitis (ICD-10) Surgical History (Updated 03/26/23 @ 03:52 by Rosalba Mena) Previous back surgery ?Z98.890 - Other specified postprocedural states (ICD-10) Exam Narrative Exam Narrative: Vital signs and nurses notes reviewed. The patient is not hypoxic. General: The patient appears well and in no apparent distress. Patient is resting comfortably on cart. Skin: Warm, dry, no pallor noted. The patient has no evidence of rash, petechiae, or purpura noted. Head: Normocephalic, atraumatic, no temporal arterial tenderness Neck: Supple, trachea mid-line, no tenderness, no lymphadenopathy. No meningeal signs. No nuchal rigidity. Eye: Pupils are equal, round and reactive to light, EOMI Ears, Nose, Mouth, and Throat: Oral mucosa is moist, TMs are clear bilaterally, no hemotympanum noted. Cardiovascular: Regular Rate and Rhythm Respiratory: Patient is in no distress, no accessory muscle use, lungs are clear to auscultation, no wheezing, rales or rhonchi Back: non-tender, no CVA tenderness Musculoskeletal: normal ROM, no tenderness, no swelling, normal strength 5/5. Normal pulses to radial 2+ bilaterally and 2+ at DP and PT bilaterally and symmetrically. GI: Normal bowel sounds, no tenderness to palpation, no masses appreciated. No rebound, guarding, or rigidity noted. Neurological: A&O x4, normal equal house officer strength,. The patient is not ataxic. The patient has normal speech. The patient has normal coordination. . Normal motor and sensory observed. Psychiatric: Cooperative Constitutional Vital Signs, click to edit/add: Last Vital Signs Temp 98.2 F 02/08/24 17:52 Pulse 80 02/08/24 20:53 Resp 18 02/08/24 20:53 BP 122/82 02/08/24 20:53 Pulse Ox 100 02/08/24 20:53 O2 Del Method Room Air 02/08/24 20:53 Course Vital Signs Vital signs: Vital Signs Temperature 98.2 F 02/08/24 17:52 Pulse Rate 106 H 02/08/24 17:52 Respiratory Rate 18 02/08/24 17:52 Blood Pressure 160/91 H 02/08/24 17:52 Pulse Oximetry 10 L 02/08/24 17:52 Oxygen Delivery Method Room Air 02/08/24 17:52 Temperature 98.2 F 02/08/24 17:52 Pulse Rate 80 02/08/24 20:53 Respiratory Rate 18 02/08/24 20:53 Blood Pressure 122/82 02/08/24 20:53 Pulse Oximetry 100 02/08/24 20:53 Oxygen Delivery Method Room Air 02/08/24 20:53 Medical Decision Making MDM Narrative Medical decision making narrative: Patient presents with vague symptoms over the past week and a half, reports feeling dizzy, lightheaded. He denies any vomiting or diarrhea. She reports at times it can be like room spinning but currently is not. Patient states she has just felt off. Past her migraine history, she denies any recent headache, states the headache she has had in the recent past have been all within her normal realm. She denies any head injury. She reports having her head scan with a CT in the past and is agreeable to hold on imaging at this time given her lack of symptoms at pPatient reevaluated, we discussed her laboratory studies, TSH was slightly elevated but T4 within normal limits. Patient admits to having thyroid studies that were elevated in the past. We discussed probably rechecking this at a later date. Patient has multiple vague symptoms, discussed her use of sucralfate For the past 7 months. She reports having a EGD done remotely with Dr. Smith. Patient states she was started on this medication by the ER along with omeprazole and feels that is done okay job with her symptoms but she occasionally gets chest discomfort and pain into her shoulder blade. We discussed the patient Anxiety, she admits to being prescribed medication recently by her family doctor to help with the symptoms. She previously took part in counseling. We discussed that she should probably reestablish counseling as she is hesitant on medications with concerns of side effects. She is agreeable to Zofran but declined Phenergan here for her nausea. Patient may require further evaluation with endocrinology, as some hair thinning is noted on exam plus various symptoms that may relate to her fluctuating thyroid levels. Patient has been off work for the past 2 weeks per her PCP and has an appointment on Friday to discuss her symptoms before returning. Patient thankful for evaluation this evening and discussion, but verbalizes in the presence of her parents that she should follow her family doctor's instruction regarding further evaluation of symptoms. The patient is to followup with primary care physician in next 2-3 days or to return to the emergency department should any of the signs or symptoms worsen or new symptoms develop. Patient had questions answered. The patient agrees with the following Diagnosis and Treatment plan and the patient will be discharged home. Lab Data Lab results reviewed: Yes I reviewed the patient's lab results Labs: Lab Results 02/08/24 02/08/24 Range/Units 18:41 19:57 WBC 8.2 (4.0-11.0) 10^3/uL RBC 5.11 (4.20-5.40) 10^6/uL Hgb 14.6 (12.0-16.0) g/dL Hct 45.9 (36.0-48.0) % MCV 89.8 (81.0-99.0) fL MCH 28.6 (26.7-34.0) pg MCHC 31.8 (29.9-35.2) g/dL RDW 12.3 (11.0-15.0) % Plt Count 106 L (150-450) 10^3/uL MPV 11.1 (9.5-13.5) fL Neut % (Auto) 42.5 L (43.0-75.0) % Lymph % (Auto) 44.6 (20.5-60.0) % [place] % (Auto) 8.9 (1.7-12.0) % Eos % (Auto) 2.3 (0.9-7.0) % Baso % (Auto) 1.0 (0.2-2.0) % Neut # (Auto) 3.5 (1.4-6.5) 10^3/uL Lymph # (Auto) 3.7 (1.2-3.8) 10^3/uL [place] # (Auto) 0.7 (0.3-0.8) 10^3/uL Eos # (Auto) 0.2 (0.0-0.7) 10^3/uL Baso # (Auto) 0.1 (0.0-0.1) 10^3/uL Abs Immat Gran (auto) 0.06 H (0.00-0.03) 10^3/uL Imm/Tot Granulo (auto) 0.7 H (0.0-0.5) % Sodium 137 (136-145) mmol/L Potassium 4.2 (3.5-5.1) mmol/L Chloride 101 (98-107) mmol/L Carbon Dioxide 22.2 (21.0-32.0) mmol/L Anion Gap 18.0 BUN 9.0 (7.0-18.0) mg/dL Creatinine 0.66 (0.55-1.02) mg/dL Est GFR ( Amer) >60 (>=60) Est GFR (Non-Af Amer) >60 (>=60) BUN/Creatinine Ratio 13.6 Glucose 113 H (74-106) mg/dL Calcium 9.0 (8.5-10.1) mg/dL Total Bilirubin 0.3 (0.2-1.0) mg/dL AST 21 (15-37) U/L ALT 24 (14-59) U/L Alkaline Phosphatase 90 (46-116) U/L Total Creatine Kinase 78 (26-192) U/L CK-MB (CK-2) <0.50 (<=3.60) ng/mL Myoglobin 14 (9-82) ng/mL Troponin I High Sens 5.7 (4.0-51.3) pg/mL Total Protein 7.4 (6.4-8.2) g/dL Albumin 3.6 (3.4-5.0) g/dL Globulin 3.8 g/dL Albumin/Globulin Ratio 0.9 Free T4 0.88 (0.76-1.46) ng/dL TSH & Free T4 Interp 4.186 H (0.358-3.740) uIU/mL Serum HCG, Qual Negative (NEGATIVE) Urine Color Lt. yellow (YELLOW) Urine Clarity Clear (CLEAR) Urine pH 6.5 (5.0-9.0) Ur Specific [place] 1.020 (1.005-1.025) Urine Protein Negative (NEG/TRACE) mg/dL Urine Glucose (UA) Negative (NEGATIVE) mg/dL Urine Ketones Negative (NEGATIVE) mg/dL Urine Occult Blood Negative (NEGATIVE) Urine Nitrite Negative (NEGATIVE) Urine Bilirubin Negative (NEGATIVE) Urine Urobilinogen 1.0 (0.2-1.0) EU/dL Ur Leukocyte Esterase Negative (NEGATIVE) ECG Data Attestation: I personally reviewed and interpreted this ECG as follows: Interpretation: EKG interpretation: Emergency Department physician interpretation, normal sinus rhythm 90 bpm, no ectopy, no ST segment elevation, normal axis. Discharge Plan Discharge Stand Alone Forms: Portal Instructions Chief Complaint: Weakness Clinical Impression: Light-headed feeling, Nausea Patient Disposition: Home, Self-Care Time of Disposition Decision: 20:38 Condition: Good Mode of Transportation: Private Vehicle Prescriptions / Home Meds: New ondansetron HCl 4 mg tablet 4 mg PO Q6H PRN (Reason: nausea and vomiting) Qty: 12 0RF No Action Nortrel (28) 1-35 mg-mcg tablet 1 tab PO DAILY omeprazole 20 mg capsule,delayed release(DR/EC) 40 mg PO BID prednisolone acetate 1 % drops,suspension 1 drp OPHTHALMIC (EYE) Q12H Ajovy Autoinjector 225 mg/1.5 mL auto-injector 225 mg subcut sucralfate [Carafate] 1 gram tablet 1 g PO TID Qty: 12 0RF Print Language: U[place] Instructions: Lightheadedness (ED) Referrals: RAYNA HOBBS DO [Primary Care Provider] - 02/11/24 Discharge Date/Time: 02/08/24 20:53
--- NOTE | 2024-02-08 18:13 | XR_ITS ---
[address] [address] Patient Name: TO SHELTON MRN: [id number] date: 1990 Sex: F Assigned Patient Location: ER Current Patient Location: ER Accession/Order Number: [id number] Exam Date: 02/08/2024 18:40 Report Date: 02/08/2024 19:26 At the request of: BHAVIN HENDERSON Procedure: XR chest 1V Exam: Radiographs: XR chest 1V Reason for exam: dizziness, weakness Comparison: CT scan dated 03/26/2023 XR/XR chest 1V IMPRESSION: Unremarkable chest x-ray. Electronically authenticated by: MIGUELITO FAYE Date: 02/08/2024 19:26
[2024-02-08] MEDS: MECLIZINE HCL 12.5 MG TABLET 25 MG PO (18:26)
[2024-02-08] MEDS: ONDANSETRON 4 MG RAPDIS TABLET PO (18:26)
[2024-02-08 18:54] LABS: Basophils Absolute Auto 0.1 10^3/uL (0.0-0.1); Eosinophils Absolute Auto 0.2 10^3/uL (0.0-0.7); Eosinophils Percent Auto 2.3 % (0.9-7.0); Hematocrit 45.9 % (36.0-48.0); Hemoglobin 14.6 g/dL (12.0-16.0); Immature Granulocytes Abs Auto 0.06 10^3/uL (0.00-0.03); Immature Granulocytes Pct Auto 0.7 % (0.0-0.5); Lymphocytes Absolute Auto 3.7 10^3/uL (1.2-3.8); Lymphocytes Percent Auto 44.6 % (20.5-60.0); Mean Corpuscular HGB Conc 31.8 g/dL (29.9-35.2); Mean Corpuscular Hemoglobin 28.6 pg (26.7-34.0); Mean Corpuscular Volume 89.8 fL (81.0-99.0); Mean Platelet Volume 11.1 fL (9.5-13.5); Monocytes Absolute Auto 0.7 10^3/uL (0.3-0.8); Monocytes Percent Auto 8.9 % (1.7-12.0); Neutrophils Absolute Auto 3.5 10^3/uL (1.4-6.5); Neutrophils Percent Auto 42.5 % (43.0-75.0); Platelet Count 106 10^3/uL (150-450); Red Blood Count 5.11 10^6/uL (4.20-5.40); Red Cell Distribution Width 12.3 % (11.0-15.0); White Blood Count 8.2 10^3/uL (4.0-11.0)
[2024-02-08 19:10] LABS: Alanine Aminotransferase 24 U/L (14-59); Alkaline Phosphatase 90 U/L (46-116); Aspartate Amino Transferase 21 U/L (15-37); BUN Creatinine Ratio 13.6; Bilirubin Total 0.3 mg/dL (0.2-1.0); Carbon Dioxide 22.2 mmol/L (21.0-32.0); Chloride 101 mmol/L (98-107); Estimated GFR (African America >60 (>=60); Estimated GFR (Non-African Ame >60 (>=60); Glucose 113 mg/dL (74-106); Potassium 4.2 mmol/L (3.5-5.1); Sodium 137 mmol/L (136-145); Total Protein 7.4 g/dL (6.4-8.2)
[2024-02-08 19:25] LABS: Albumin Globulin Ratio 0.9; Albumin Level 3.6 g/dL (3.4-5.0); Creatine Kinase 78 U/L (26-192); Creatine Kinase MB <0.50 ng/mL (<=3.60); Globulin 3.8 g/dL; Myoglobin 14 ng/mL (9-82); TSH W/ REFLEX FT4 4.186 uIU/mL (0.358-3.740); Troponin I High Sensitivity 5.7 pg/mL (4.0-51.3)
[2024-02-08 19:31] LABS: HCG Qualitative NEGATIVE (NEGATIVE); Internal Control Within Normal Limits
[2024-02-08 19:43] LABS: Free T4 0.88 ng/dL (0.76-1.46)
[2024-02-08 20:04] LABS: Bilirubin Urine NEGATIVE (NEGATIVE); Blood Urine NEGATIVE (NEGATIVE); Clarity Urine CLEAR (CLEAR); Color Urine LT. YELLOW (YELLOW); Glucose Urine UA NEGATIVE (NEGATIVE); Ketones Urine NEGATIVE (NEGATIVE); Leukocyte Esterase Urine NEGATIVE (NEGATIVE); Nitrite Urine NEGATIVE (NEGATIVE); Protein Urine NEGATIVE (NEG/TRACE); pH Urine 6.5 (5.0-9.0)
[2024-02-08 20:08] LABS: Urine Microscopic Indicated NO
== END 2024-02-08 20:53 | disposition home or self-care (01) ==
PROVIDERS: Personal Emergency Response Attendant; Emergency Provider Emergency Medicine; PCP Family Medicine
DX: R42 Dizziness and giddiness (principal); R11.0 Nausea
CPT/HCPCS: 36415; 71045; 80053; 81003; 82550; 82553; 83874; 84439; 84443; 84484; 84703; 85025; 93005; 99285; Q0162

== ENCOUNTER 2024-12-24 11:05 | Outpatient (OUT) | payer OTHER, SELFPAY | END 2024-12-24 11:06 | disposition home or self-care (01) | LOC: US 11:07 | PROVIDERS: PCP Family Medicine; Visit Provider Nurse Practitioner Family | DX: R42 Dizziness and giddiness (principal) | CPT/HCPCS: 93880 ==